=== PATIENT | male | born 1960 | race Caucasian/White ===

== ENCOUNTER 2020-10-16 06:20 | Outpatient (REF) | payer MEDICARE, MEDICAID, SELFPAY ==
[2020-10-16 08:05] LABS: Alanine Aminotransferase 20 U/L (0-40); Albumin Level 4.2 g/dL (3.5-5.0); Alkaline Phosphatase 82 U/L (39-117); Anion Gap 16 (12-20); Aspartate Amino Transferase 18 U/L (5-37); Bilirubin Total 1.1 mg/dL (0.0-1.0); Blood Urea Nitrogen 13 mg/dL (9-16); Calcium 9.7 mg/dL (8.4-10.2); Carbon Dioxide 25 mmol/L (22-29); Chloride 104 mmol/L (96-108); Cholesterol 114 mg/dL; Estimated Glomerular Filt Rate > 60; Glucose Fasting 132 mg/dL (60-99); HDL Cholesterol 33 mg/dL; LDL Cholesterol Calculated 55 mg/dl; Potassium 4.5 mmol/l (3.3-5.1); Sodium 140 mmol/L (135-145); Triglycerides 132 mg/dL
[2020-10-16 08:07] LABS: Creatinine Urine 167.25 mg/dL; Microalbum/Creatinine Ratio Ur 29.8 ug/mg cr
[2020-10-16 08:08] LABS: Vitamin D 25-OH Total 38.1 ng/mL (>30)
== END 2020-10-16 06:21 | disposition home or self-care (01) ==
LOC: HO.LAB 06:20
PROVIDERS: PCP Internal Medicine; Visit Provider Internal Medicine
DX: E11.9 Type 2 diabetes mellitus without complications (principal); E55.9 Vitamin D deficiency, unspecified
CPT/HCPCS: 80053; 80061; 82043; 82306

== ENCOUNTER 2021-03-30 08:55 | Outpatient (REF) | payer MEDICARE, MEDICAID, SELFPAY ==
[2021-03-30 10:56] LABS: Alanine Aminotransferase 22 U/L (0-40); Albumin Level 4.6 g/dL (3.5-5.0); Alkaline Phosphatase 83 U/L (39-117); Aspartate Amino Transferase 19 U/L (5-37); Bilirubin Total 0.6 mg/dL (0.0-1.0); Blood Urea Nitrogen 15 mg/dL (9-16); Cholesterol 125 mg/dL; Estimated Glomerular Filt Rate > 60; Glucose Fasting 120 mg/dL (60-99); HDL Cholesterol 35 mg/dL; LDL Cholesterol Calculated 50 mg/dl; Total Protein 7.3 g/dL (6.5-8.0); Triglycerides 203 mg/dL
[2021-03-30 11:04] LABS: Creatinine Urine 112.28 mg/dL; Microalbum/Creatinine Ratio Ur 33.8 ug/mg cr
[2021-03-30 11:13] LABS: Anion Gap 13 (12-20); Calcium 10.1 mg/dL (8.4-10.2); Carbon Dioxide 29 mmol/L (22-29); Chloride 105 mmol/L (96-108); Potassium 5.1 mmol/L (3.3-5.1); Sodium 142 mmol/L (135-145)
[2021-04-06 14:02] LABS: Vitamin D 25-OH, D2 <4 ng/mL; Vitamin D 25-OH, D3 42 ng/mL; Vitamin D 25-OH, Total 42 ng/mL (30-100)
== END 2021-03-30 08:56 | disposition home or self-care (01) ==
LOC: HO.LAB 08:55
PROVIDERS: PCP Internal Medicine; Visit Provider Internal Medicine
DX: E11.49 Type 2 diabetes mellitus with other diabetic neurological complication (principal); E78.5 Hyperlipidemia, unspecified; E55.9 Vitamin D deficiency, unspecified
CPT/HCPCS: 36415; 80053; 80061; 82043; 82306

== ENCOUNTER 2021-06-17 10:29 | Emergency (ER) | payer MEDICARE, MEDICAID, SELFPAY ==
--- NOTE | ~2021-06-17 | XR_ITS ---
Examination: XR foot LT 2V, XR tibia fibula RT 2V, XR ankle LT min 3V Indication: fall. Comparison: 09/25/2018 knee films Technique: 2 views of the right tibia and fibula, 2 views of the ankle with 3 views of the right foot including a lateral view of the foot and ankle Findings: Patient is status post unilateral medial joint replacement. Hardware appears be intact. No evidence for periprosthetic fracture or loosening. No acute fracture or dislocation to the remaining tibia or fibula. Soft tissue unremarkable. No significant ankle joint effusion. Bones are normal anatomic alignment with no acute fracture or dislocation. Minimal degenerative changes at the first MTP joint. Calcaneal heel spur at the attachment point of the plantar aponeurosis. I do not appreciate any acute fracture or dislocation. XR/XR ankle LT min 3V Impression: Chronic appearing and degenerative changes as described above. I do not appreciate any acute fracture or dislocation.
--- NOTE | ~2021-06-17 | XR_ITS ---
Examination: XR foot LT 2V, XR tibia fibula RT 2V, XR ankle LT min 3V Indication: fall. Comparison: 09/25/2018 knee films Technique: 2 views of the right tibia and fibula, 2 views of the ankle with 3 views of the right foot including a lateral view of the foot and ankle Findings: Patient is status post unilateral medial joint replacement. Hardware appears be intact. No evidence for periprosthetic fracture or loosening. No acute fracture or dislocation to the remaining tibia or fibula. Soft tissue unremarkable. No significant ankle joint effusion. Bones are normal anatomic alignment with no acute fracture or dislocation. Minimal degenerative changes at the first MTP joint. Calcaneal heel spur at the attachment point of the plantar aponeurosis. I do not appreciate any acute fracture or dislocation. XR/XR foot LT 2V Impression: Chronic appearing and degenerative changes as described above. I do not appreciate any acute fracture or dislocation.
--- NOTE | ~2021-06-17 | XR_ITS ---
Examination: XR foot LT 2V, XR tibia fibula RT 2V, XR ankle LT min 3V Indication: fall. Comparison: 09/25/2018 knee films Technique: 2 views of the right tibia and fibula, 2 views of the ankle with 3 views of the right foot including a lateral view of the foot and ankle Findings: Patient is status post unilateral medial joint replacement. Hardware appears be intact. No evidence for periprosthetic fracture or loosening. No acute fracture or dislocation to the remaining tibia or fibula. Soft tissue unremarkable. No significant ankle joint effusion. Bones are normal anatomic alignment with no acute fracture or dislocation. Minimal degenerative changes at the first MTP joint. Calcaneal heel spur at the attachment point of the plantar aponeurosis. I do not appreciate any acute fracture or dislocation. XR/XR tibia fibula RT 2V Impression: Chronic appearing and degenerative changes as described above. I do not appreciate any acute fracture or dislocation.
[2021-06-17 11:18] VITALS: BP 133/85; PULSE 80; RESP 16; O2SAT 100; BMI 41.8
[2021-06-17] MEDS: Diphth,Pertus(ACell),Tet Adult 0.5 ML SYRINGE IM (12:17)
--- NOTE | 2021-06-17 12:29 | ED_ITS ---
HPI - Fall General Chief Complaint: Fall Stated Complaint: fall Time Seen by Provider: 06/17/21 11:43 Source: patient Mode of arrival: ambulatory Limitations: no limitations History of Present Illness HPI Narrative: Patient presents to ED bilateral leg abrasions. Patient presents to the ED for mostly left ankle pain. Patient states he was walking with sandals and doing gardening work on wet grass any slipped and fell onto his legs. Patient denies hitting head or loss of consciousness. Patient denies any chest pain, shortness of breath, vomiting, or dizziness. MD complaint: fall Fall from: standing Related Data Previous Rx's Medication Instructions Recorded simvastatin 40 mg tablet 40 mg PO BEDTIME 90 Days #90 tab 10/24/20 cholecalciferol (vitamin D3) 25 25 mcg PO DAILY 90 Days #90 tab 10/25/20 mcg (1,000 unit) tablet lancets 28 gauge (FreeStyle 28 gauge TOPICAL DAILY #100 cap 11/28/20 Lancets) metformin 500 mg tablet 1,000 mg PO BID #360 tab 02/21/21 blood sugar diagnostic (FreeStyle 1 strip MISCELLANEOUS DAILY #50 05/25/21 Lite Strips) strip losartan 100 mg tablet 100 mg PO DAILY #90 tab 05/26/21 omeprazole 20 mg capsule,delayed 20 mg PO DAILY 90 Days #90 cap 05/31/21 release gabapentin 300 mg capsule 300 mg PO DAILY 90 Days #90 cap 06/06/21 cephalexin 500 mg capsule 500 mg PO QID #28 cap 06/17/21 naproxen 500 mg tablet 500 mg PO BID PRN #20 tab 06/17/21 Allergies Allergy/AdvReac Type Severity Reaction Status Date / Time shellfish derived Allergy Mild SWELLING;DIFF Verified 05/31/21 08:57 [SHELLFISH DERIVED] BREATHING shrimp [SHRIMP] Allergy Mild swelling,difficulty Verified 05/31/21 08:57 breathing Review of Systems Review of Systems: Yes all other systems are reviewed and are negative Constitutional: Constitutional: Reports as per HPI and Reports no additional constitutional complaints Eyes: Eyes: Reports as per HPI and Reports no additional eye complaints ENT: Reports system reviewed and no additional complaints, except as documented Cardiovascular: Cardiovascular: Reports as per HPI and Reports no additional cardiovascular complaints Respiratory: Respiratory: Reports as per HPI and Reports no additional respiratory complaints Gastrointestinal: Gastrointestinal: Reports as per HPI and Reports no addition al gastrointestinal complaints Genitourinary: Genitourinary: Reports no additional male genitourinary complaints and Reports as per HPI Musculoskeletal: Musculoskeletal: Reports no additional musculoskeletal complaints, Reports as per HPI and Reports arthralgias (Left ankle pain) Neurologic: Reports system reviewed and no additional complaints, except as documented and Reports as per HPI [facility] [place] Past Medical History Medical History Diabetes mellitus Essential hypertension Hypovitaminosis D Morbid obesity Neuropathy Pure hypercholesterolemia Surgical History History of arthroscopy of right knee Nephrolithiasis Family History Family History Father Diabetes Hypertension Mother Diabetes Hypertension Sister Lung cancer Family/Other Diabetes Hypertension Hypercholesterolemia Social History Social History Housing: Apartment Alcohol intake: never Patient Tobacco Use Status: Former Tobacco user Advance Directives: No Advance Directives Information Provided: No service: No Current occupational status: disabled Physical Exam Vital Signs: Vital Signs: Last Vital Signs Pulse 80 06/17/21 11:18 Resp 16 06/17/21 11:18 BP 133/85 06/17/21 11:18 Pulse Ox 100 06/17/21 11:18 Body Mass Index 41.8 Const: General: cooperative, healthy appearing, comfortable, no acute distress, well developed, alert, awake and Physically active Orientation/consciousness: patient oriented x3 HENMT: Head: Yes normal to inspection, Yes No palpable skull fracture present, Yes normocephalic, Yes atraumatic, No abrasion, No Acrocyanosis present, No Goyal's sign, No contusion, No cranial bruits, No hematoma, No laceration, No occipital foramen tenderness, No palpable skull fracture, No raccoon eyes, No scalp lesion, No scalp tenderness, No Temporal artery tenderness present and No periorbital ecchymosis Ears: hearing grossly normal bilaterally, external ears normal, TM's normal bilaterally, mastoids normal and no periauricular adenopathy Face and sinus: Yes normal facial exam and Yes sinuses nontender Eyes: General: appearance normal, both eyes and all related structures Neck: Neck: Yes normal visual inspection, Yes full ROM, Yes no lymphadenopathy, Yes no meningeal signs, Yes trachea midline, Yes supple and No tender Chest: Chest palpation & inspection: normal inspection of the chest and normal palpation of entire chest wall Resp: Effort & Inspection: normal respiratory effort and able to speak in complete sentences Auscultation: clear to auscultation bilaterally Cardio: Jugular venous distension: no JVD Heart sounds: S1 normal heart sound present and S2 normal heart sound present GI: Inspection: Yes normal to inspection and No abdominal wall ecchymosis Palpation (GI): Soft to palpation, not firm, nontender, no guarding and not rigid : General: No CVA tenderness and Yes no CVA tenderness Back/Spine/Pelvis: Back: no CVA tenderness, No CVA tenderness and No back tenderness Skin: General skin exam: no rashes or lesions noted and elasticity normal Neuro: General: patient oriented x3, gait normal, no meningeal signs and CN's II-XI intact bilaterally Cranial nerves: Yes CN's II-XII intact bilaterally Extrem: General: Yes normal to inspection and Yes full ROM Upper/lower leg/hip images: 1. Positive for abrasion. Negative any deformity. Negative for redness, erythema, pus discharge. Motor/vascular/neuro exam of lower extremity intact. 2. Positive for abrasion. Negative for any deformity, ecchymosis, redness, erythema, pus discharge, foul odor. Mild tenderness. Motor/neuro/vascular exam of lower extremity intact. Course Course Course Narrative: Patient will be sent for lower extremity imaging. Reevaluation(s) Reevaluation #1: Images came back negative for fracture. Patient will be discharged with pain meds. Time: 13:13 MDM - Fall MDM Narrative Medical decision making narrative: Abrasions Discharge Plan Discharge Clinical Impression: Abrasion Patient Disposition: Home, Self-Care Instructions: Ankle Sprain (ED), Abrasion (ED) Additional Instructions: The x-rays came back negative for any fractures. Return to ED for any redness, pus discharge, foul odor, fever, or chills. He will be discharged with antibiotics to prevent infection due to history of diabetes. Please return to the ED for any other concerning symptoms. Please follow-up with PCP Prescriptions: New cephalexin 500 mg capsule 500 mg PO QID Qty: 28 RF: 0 naproxen 500 mg tablet 500 mg PO BID PRN (Reason: pain) Qty: 20 RF: 0 No Action simvastatin 40 mg tablet 40 mg PO BEDTIME 90 Days Qty: 90 RF: 3 cholecalciferol (vitamin D3) 25 mcg (1,000 unit) tablet 25 mcg PO DAILY 90 Days Qty: 90 RF: 3 lancets [FreeStyle Lancets] 28 gauge misc 28 gauge topical DAILY Qty: 100 RF: 1 metformin 500 mg tablet 1,000 mg PO BID Qty: 360 RF: 3 blood sugar diagnostic [FreeStyle Lite Strips] Strip 1 strip miscellaneous DAILY Qty: 50 RF: 6 losartan 100 mg tablet 100 mg PO DAILY Qty: 90 RF: 3 gabapentin 300 mg capsule 300 mg PO DAILY 90 Days Qty: 90 RF: 3 omeprazole 20 mg capsule,delayed release(DR/EC) 20 mg PO DAILY 90 Days Qty: 90 RF: 2 Interventions: ED Discharge Assessment Last Done: 06/17/21 13:30 Discharge Date/Time: 06/17/21 13:50 Print Language: [place]
== END 2021-06-17 13:50 | disposition home or self-care (01) ==
PROVIDERS: Emergency Provider Emergency Medicine Emergency Medical Services; PCP Internal Medicine
DX: S90.512A Abrasion, left ankle, initial encounter (principal); W01.0XXA Fall on same level from slipping, tripping and stumbling without subsequent striking against object, initial encounter; Y93.H2 Activity, gardening and landscaping; Y92.017 Garden or yard in single-family (private) house as the place of occurrence of the external cause; Y99.9 Unspecified external cause status
CPT/HCPCS: 73590; 73610; 73620; 90471; 90715; 99283; 99284

== ENCOUNTER 2021-10-08 08:32 | Outpatient (REF) | payer MEDICARE, MEDICAID, SELFPAY ==
[2021-10-08 09:32] LABS: Creatinine Urine 81.21 mg/dL; Microalbum/Creatinine Ratio Ur 82.5 ug/mg cr
[2021-10-08 09:32] LABS: Alanine Aminotransferase 23 U/L (0-40); Albumin Level 4.4 g/dL (3.5-5.0); Alkaline Phosphatase 86 U/L (39-117); Anion Gap 14 (12-20); Aspartate Amino Transferase 17 U/L (5-37); Bilirubin Total 0.8 mg/dL (0.0-1.0); Blood Urea Nitrogen 15 mg/dL (9-16); Calcium 10.3 mg/dL (8.4-10.2); Carbon Dioxide 27 mmol/L (22-29); Chloride 104 mmol/L (96-108); Cholesterol 130 mg/dL; Estimated Glomerular Filt Rate > 60; Glucose Fasting 111 mg/dL (60-99); HDL Cholesterol 33 mg/dL; LDL Cholesterol Calculated 61 mg/dl; Potassium 4.8 mmol/L (3.3-5.1); Sodium 140 mmol/L (135-145); Total Protein 7.2 g/dL (6.5-8.0); Triglycerides 180 mg/dL
[2021-10-08 09:36] LABS: Uric Acid 5.1 mg/dL (3.4-7.0)
[2021-10-11 15:06] LABS: Vitamin D 25-OH, D2 <4 ng/mL; Vitamin D 25-OH, D3 34 ng/mL; Vitamin D 25-OH, Total 34 ng/mL (30-100)
== END 2021-10-08 08:33 | disposition home or self-care (01) ==
LOC: HO.LAB 08:32
PROVIDERS: PCP Internal Medicine; Visit Provider Internal Medicine
DX: E55.9 Vitamin D deficiency, unspecified (principal); E11.49 Type 2 diabetes mellitus with other diabetic neurological complication; M10.9 Gout, unspecified; E78.5 Hyperlipidemia, unspecified
CPT/HCPCS: 36415; 80053; 80061; 82043; 82306; 84550

== ENCOUNTER 2022-07-22 22:15 | Emergency (ER) | payer MEDICARE, MEDICAID, SELFPAY ==
--- NOTE | 2022-07-22 23:37 | PC.NURSE ---
RN called patient to triage for initial triage and he was noted to ambulate over to triage with even and steady gait without distress noted. PT reports while waiting his right ear popped and he felt better. Pt declined to be seen as he reports his ear feels better and there not longer is a need for eval.
== END 2022-07-22 23:38 | disposition left against medical advice (07) ==
PROVIDERS: Emergency Provider Emergency Medicine; PCP Internal Medicine
DX: H92.01 Otalgia, right ear (principal)

== ENCOUNTER 2022-07-23 00:50 | Emergency (ER) | payer MEDICARE, MEDICAID, SELFPAY ==
[2022-07-23 01:16] VITALS: BP 147/98; PULSE 80; RESP 18; TEMP 36.7; O2SAT 97; BMI 44.6
--- NOTE | 2022-07-23 03:29 | ED.EAR ---
HPI - Ear Problem General Chief complaint: Ear Problems Stated complaint: ear pain, LWT a few hours ago Time Seen by Provider: 07/23/22 03:29 Source: patient Mode of arrival: ambulatory Limitations: no limitations History of Present Illness HPI Narrative: right ear with intermittent ear pressure with occasional popping. Complaint: ear pain Location: right ear Duration: intermittent Severity: moderate Relieving factors: nothing Exacerbating factors: nothing Discharge from ear: no Associated symptoms ear: decreased hearing Treatment prior to arrival: none Related Data Previous Rx's Medication Instructions Recorded cholecalciferol (vitamin D3) 25 25 mcg PO DAILY 90 days #90 tabs 10/25/20 mcg (1,000 unit) tablet omeprazole 20 mg capsule,delayed 20 mg PO DAILY 90 days #90 caps 05/31/21 release naproxen 500 mg tablet 500 mg PO BID PRN pain #20 tabs 06/17/21 blood sugar diagnostic (FreeStyle 1 strip miscellaneous DAILY #50 07/18/21 Lite Strips) strips lancets 28 gauge (FreeStyle 28 gauge topical DAILY #100 caps 09/24/21 Lancets) simvastatin 40 mg tablet 40 mg PO BEDTIME 90 days #90 tabs 11/09/21 metformin 500 mg tablet 1,000 mg PO BID #360 tabs 03/06/22 gabapentin 300 mg capsule 300 mg PO DAILY 90 days #90 caps 06/28/22 losartan 100 mg tablet 100 mg PO DAILY #90 tabs 06/28/22 Allergies Allergy/AdvReac Type Severity Reaction Status Date / Time shellfish derived Allergy Mild SWELLING;DIFF Verified 07/23/22 01:16 [SHELLFISH DERIVED] BREATHING shrimp [SHRIMP] Allergy Mild swelling,difficulty Verified 07/23/22 01:16 breathing Review of Systems Constitutional: Constitutional: Reports no additional constitutional complaints Eyes: Eyes: Reports no additional eye complaints ENT: Denies dizziness Cardiovascular: Cardiovascular: Reports no additional cardiovascular complaints Respiratory: Respiratory: Reports as per HPI Gastrointestinal: Gastrointestinal: Reports no additional gastrointestinal complaints Musculoskeletal: Musculoskeletal: Reports no additional musculoskeletal complaints Integumentary/Breasts: Skin/Breast: Denies rash Neurologic: Reports system reviewed and no additional complaints, except as documented, Denies dizziness and Denies Sensory deficit (Neuro) Psychiatric: Psychiatric: Denies anxiety PMFSH Past Medical History Medical History Diabetes mellitus Essential hypertension Hypovitaminosis D Morbid obesity Neuropathy Pure hypercholesterolemia Surgical History History of arthroscopy of right knee Nephrolithiasis Family History Family History Father Diabetes Hypertension Mother Diabetes Hypertension Sister Lung cancer Family/Other Diabetes Hypertension Hypercholesterolemia Social History Social History Housing: Apartment Alcohol intake: never Patient Tobacco Use Status: Former Tobacco user e-Cigarette/Vaping Use: Never Used Second Hand Smoke Exposure: No Use of substances other than those prescribed or required for medical reasons: No Advance Directives: No service: No Current occupational status: disabled Physical Exam Vital Signs: Vital Signs: Last Vital Signs Temp 98.1 F 07/23/22 01:16 Pulse 80 07/23/22 01:16 Resp 18 07/23/22 01:16 BP 147/98 H 07/23/22 01:16 Pulse Ox 97 07/23/22 01:16 O2 Del Method 07/23/22 01:16 BMI result Body Mass Index 44.6 Neuro: Sensory Exam: No Sensory deficit (Neuro) Procedures Procedure Narrative Procedure Narrative: patient with Currette of cerumen impaction but then used elephant ear to irrigate and large impaction removed Discharge Plan Discharge Clinical Impression: Cerumen impaction Patient Disposition: Home, Self-Care Prescriptions: No Action cholecalciferol (vitamin D3) 25 mcg (1,000 unit) tablet 25 mcg PO DAILY 90 Days Qty: 90 3RF FreeStyle Lite Strips Strip 1 strip miscellaneous DAILY Qty: 50 6RF lancets [FreeStyle Lancets] 28 gauge misc 28 gauge topical DAILY Qty: 100 1RF simvastatin 40 mg tablet 40 mg PO BEDTIME 90 Days Qty: 90 3RF metformin 500 mg tablet 1,000 mg PO BID Qty: 360 3RF losartan 100 mg tablet 100 mg PO DAILY Qty: 90 3RF gabapentin 300 mg capsule 300 mg PO DAILY 90 Days Qty: 90 3RF naproxen 500 mg tablet 500 mg PO BID PRN (Reason: pain) Qty: 20 0RF omeprazole 20 mg capsule,delayed release(DR/EC) 20 mg PO DAILY 90 Days Qty: 90 2RF Referrals: Michelle Lind MD [Primary Care Provider] - 2 weeks
[2022-07-23 05:00] VITALS: BP 130/74; PULSE 86; RESP 16; TEMP 36.8; O2SAT 97
== END 2022-07-23 05:02 | disposition home or self-care (01) ==
PROVIDERS: Emergency Provider Emergency Medicine; PCP Internal Medicine
DX: H61.21 Impacted cerumen, right ear (principal); H92.01 Otalgia, right ear; E11.9 Type 2 diabetes mellitus without complications; I10 Essential (primary) hypertension; E78.00 Pure hypercholesterolemia, unspecified; E66.01 Morbid (severe) obesity due to excess calories; Z68.41 Body mass index [BMI] 40.0-44.9, adult; Z87.891 Personal history of nicotine dependence; Z79.02 Long term (current) use of antithrombotics/antiplatelets; Z79.84 Long term (current) use of oral hypoglycemic drugs; Z79.899 Other long term (current) drug therapy
CPT/HCPCS: 69210; 99283; 99284

== ENCOUNTER 2022-09-05 09:05 | Outpatient (REF) | payer MEDICARE, MEDICAID, SELFPAY | END 2022-09-05 09:06 | disposition home or self-care (01) | LOC: HO.LAB 09:05 | PROVIDERS: Visit Provider Internal Medicine | DX: Z13.89 Encounter for screening for other disorder (principal) ==

== ENCOUNTER 2022-09-09 07:06 | Outpatient (REF) | payer MEDICARE, MEDICAID, SELFPAY ==
[2022-09-09 08:06] LABS: Alanine Aminotransferase 47 U/L (0-40); Albumin Level 4.3 g/dL (3.5-5.0); Alkaline Phosphatase 101 U/L (39-117); Anion Gap 18 (12-20); Aspartate Amino Transferase 44 U/L (5-37); Bilirubin Total 0.5 mg/dL (0.0-1.0); Blood Urea Nitrogen 13 mg/dL (9-16); Carbon Dioxide 24 mmol/L (22-29); Chloride 102 mmol/L (96-108); Cholesterol 107 mg/dL; Estimated Glomerular Filt Rate 57; Glucose Fasting 242 mg/dL (60-99); HDL Cholesterol 27 mg/dL; LDL Cholesterol Calculated 32 mg/dl; Magnesium 1.8 mg/dL (1.6-2.6); Potassium 4.5 mmol/L (3.3-5.1); Sodium 139 mmol/L (135-145); Total Protein 7.2 g/dL (6.5-8.0); Triglycerides 241 mg/dL
[2022-09-09 08:52] LABS: Creatinine Urine 193.15 mg/dL; Microalbum/Creatinine Ratio Ur 127.8 ug/mg cr
== END 2022-09-09 07:07 | disposition home or self-care (01) ==
LOC: HO.LAB 07:06
PROVIDERS: PCP Internal Medicine; Visit Provider Internal Medicine
DX: E11.9 Type 2 diabetes mellitus without complications (principal); E55.9 Vitamin D deficiency, unspecified; R25.2 Cramp and spasm; E78.5 Hyperlipidemia, unspecified; I10 Essential (primary) hypertension
CPT/HCPCS: 36415; 80053; 80061; 82043; 82306; 83735

== ENCOUNTER 2022-10-26 22:24 | Inpatient (IN) | payer MEDICARE, MEDICAID, SELFPAY ==
--- NOTE | ~2022-10-26 | CT_ITS ---
EXAMINATION: CT ABDOMEN AND PELVIS WITHOUT CONTRAST CLINICAL INFORMATION: Elevated creatinine. Evaluate for renal obstruction. COMPARISON: None TECHNIQUE: Multidetector volumetric imaging was performed from the superior aspect of the liver through the pubic symphysis. Sagittal and coronal reformatted images were obtained on the technologist's workstation. This CT examination was performed using dose optimization techniques as appropriate, variously including the following: *Automated exposure control *Adjustment of mA and/or kV according to patient size (this includes techniques or standardized protocols for targeted exams where dose is matched to indication/reason for exam; i.e. extremities or head) *Use of iterative reconstruction technique DLP: 907 mGy-cm FINDINGS: LUNG BASES: There is a 5 mm pulmonary nodule in the medial left lower lobe (3:49). No focal consolidation or pleural effusion. LIVER, GALLBLADDER, AND BILIARY TREE: The liver is enlarged measuring 19.8 cm craniocaudally and demonstrates decreased attenuation of the parenchyma suggesting hepatic steatosis. There are couple of calcifications in the posterior aspect of the right hepatic lobe (2:14 and 2:15). Otherwise, no discrete focal abnormalities noted in this limited noncontrast examination. Normal appearance of the gallbladder. No biliary ductal dilatation. PANCREAS: No peripancreatic free fluid or fat stranding. Diffuse fatty infiltration. No ductal dilatation. SPLEEN: Limited noncontrast examination, unremarkable. ADRENAL GLANDS: No adrenal lesion. KIDNEYS AND URETERS: No nephrolithiasis or hydronephrosis. BLADDER: Partially under distended limiting its evaluation. No perivesical fat stranding. GASTROINTESTINAL TRACT: The stomach and the small bowel are nondilated. Normal appendix. No evidence of bowel obstruction. No pericolonic inflammatory changes. ABDOMINAL WALL: Small fat-containing bilateral inguinal hernias. LYMPH NODES: Mild haziness of the upper mesentery fat with associated prominent mesenteric lymph nodes, nonspecific. There are prominent periportal lymph nodes, nonspecific in the setting of hepatic steatosis. VASCULAR: Limited noncontrast examination. Abdominal aorta is of normal diameter. PELVIC VISCERA: Coarse prostatic calcifications. OSSEOUS STRUCTURES: No acute or aggressive appearing osseous abnormalities. CT/CT abdomen pelvis wo IV con IMPRESSION: 1. No nephrolithiasis or hydronephrosis. 2. Hepatomegaly and hepatic steatosis. 3. Mild haziness of the upper mesentery with associated prominent mesenteric lymph nodes, nonspecific but could be seen with mesenteric adenitis. 4. Incidentally noted 5 mm pulmonary nodule in the left lower lobe. Assuming patient has no history of malignancy, recommend follow-up per Fleischner Society recommendations. According to the UPDATED 2017 Fleischner Society recommendations, the advised followup imaging for solid nodules < 6 mm is: LOW RISK PATIENT: No routine follow up. HIGH RISK PATIENT: Optional CT at 12 months.
--- NOTE | ~2022-10-26 | US_ITS ---
EXAMINATION: US RETROPERITONEAL LIMITED (RENAL ONLY) CLINICAL INFORMATION: Acute kidney injury. Rule out obstruction.. COMPARISON: CT abdomen pelvis earlier this morning TECHNIQUE: Grayscale and color Doppler imaging was obtained of both kidneys. FINDINGS: RIGHT KIDNEY: 11.3 x 5.2 x 5.8 cm (SAG x AP x TRV). The kidney is normal in size, contour, and echogenicity. Renal cortical thickness is normal. No calculi or focal parenchymal lesions. No hydronephrosis. LEFT KIDNEY: 11.4 x 5.6 x 4.9 cm (SAG x AP x TRV). The kidney is normal in size, contour, and echogenicity. Renal cortical thickness is normal. No calculi or focal parenchymal lesions. No hydronephrosis. US/US renal BI IMPRESSION: No renal calculi or hydronephrosis of either kidney.
[2022-10-27] VITALS (7 sets, daily range): BP systolic 107–134; BP diastolic 55–85; PULSE 88–108; RESP 15–20; TEMP 36.1–37; O2SAT 95–99; BMI 43.9
[2022-10-27 00:21] LABS: Hemoglobin 18.5 g/dl (14.0-18.0); Mean Corpuscular HGB Conc 33.4 g/dl (31.0-36.0); Mean Corpuscular Hemoglobin 28.3 pg (27.0-33.0); Mean Corpuscular Volume 84.8 fL (80.0-98.0); Mean Platelet Volume 9.2 fL (9.4-12.4); Platelet Count 500 X10*3/uL (160-400); Red Blood Count 6.53 X10*6/uL (4.60-5.80); Red Cell Distribution Width 14.1 % (11.0-16.0); White Blood Count 13.7 X10*3/uL (4.8-10.8)
[2022-10-27 00:22] LABS: Hematocrit 55.4 % (42.0-52.0)
[2022-10-27 00:44] LABS: Anion Gap 19 (12-20); Blood Urea Nitrogen 69 mg/dL (9-16); Calcium 9.8 mg/dL (8.4-10.2); Carbon Dioxide 21 mmol/L (22-29); Chloride 102 mmol/L (96-108); Creatinine Clr Calc Pharmacy 18.4; Estimated Glomerular Filt Rate 13; Glucose Random 186 mg/dL (60-115); Potassium 4.7 mmol/L (3.3-5.1); Sodium 137 mmol/L (135-145)
[2022-10-27 00:58] LABS: Influenza A PCR NEGATIVE (Negative); Influenza B PCR NEGATIVE (Negative); Resp Syncy Virus RNA Qual PCR NEGATIVE (Negative); SARS COV2 PCR INHOUSE NEGATIVE (Negative)
--- NOTE | 2022-10-27 01:20 | ED.NAVMDI ---
HPI - Nausea/Vomiting/Diarrhea General Chief complaint: Nausea/Vomiting/Diarrhea Stated complaint: vomiting/diarrhea Time Seen by Provider: 10/27/22 01:07 Source: patient Mode of arrival: ambulatory Limitations: no limitations History of Present Illness HPI Narrative: Patient comes to the emergency room complaining of 4 days of nausea vomiting and diarrhea. Patient states that he is unable to tolerate p.o.. Patient has not taking any [id number] medications to help the symptoms. Patient states that he has muscular abdominal pain from vomiting so much. Patient denies chest pain, shortness of breath, no URI or UTI symptoms Related Data Previous Rx's Medication Instructions Recorded cholecalciferol (vitamin D3) 25 25 mcg PO DAILY 90 days #90 tabs 10/25/ mcg (1,000 unit) tablet blood sugar diagnostic (FreeStyle 1 strip miscellaneous DAILY #50 07/18/21 Lite Strips) strips lancets 28 gauge (FreeStyle 28 gauge topical DAILY #100 caps 09/24/21 Lancets) simvastatin 40 mg tablet 40 mg PO BEDTIME 90 days #90 tabs 11/09/21 metformin 500 mg tablet 1,000 mg PO BID #360 tabs 03/06/22 gabapentin 300 mg capsule 300 mg PO DAILY 90 days #90 caps 06/28/22 losartan 100 mg tablet 100 mg PO DAILY #90 tabs 06/28/22 semaglutide 7 mg tablet 7 mg PO DAILY 90 days #90 tabs 09/05/22 venlafaxine 37.5 mg 37.5 mg PO BEDTIME 90 days #90 caps 09/05/22 capsule,extended release 24 hr Allergies Allergy/AdvReac Type Severity Reaction Status Date / Time shellfish derived Allergy Mild SWELLING;DIFF Verified 09/05/22 09:22 [SHELLFISH DERIVED] BREATHING shrimp [SHRIMP] Allergy Mild swelling,difficulty Verified 09/05/22 09:22 breathing Review of Systems Review of Systems: Constitutional : No Weight loss, No Fever, No Chills, No Night Sweats, No Fatigue, No Malaise ENT/Mouth : No Hearing loss, No Ear Pain, No Nasal Congestion, No Sinus Pain, No Hoarseness, No sore throat, No Rhinorrhea, No Swallowing Difficulty Eyes: No Eye Pain, No Swelling, No Redness, No Foreign Body, No Discharge, No Vision Changes Cardiovascular : No Chest Pain, No SOB, No Dyspnea on Exertion, No Orthopnea, No Edema, No Palpitations Respiratory : No Cough, No Sputum, No Wheezing, No Smoke Exposure, No Dyspnea Gastrointestinal : Complaining of nausea vomiting and diarrhea,, No Constipation, No abdominal Pain, No Hematochezia, No Melena Genitourinary : no irregular bleeding, No Dysuria, No Urinary Frequency, No Hematuria, No Urinary Incontinence, No Urgency, No Flank Pain, No Urinary Flow Changes, No Hesitancy Musculoskeletal : No joint pain, No Myalgias, No Joint Swelling Skin : No Skin Lesions, No rash Neuro : No Weakness, No Numbness, No Paresthesias, No Loss of Consciousness, No Dizziness, No Headache Psych : No Anxiety/Panic, No Depression, No SI/HI/AH/VH, No Social Issues, Heme/Lymph: No Bruising, No Bleeding,No Lymphadenopathy Endocrine : No Polyuria, No Polydipsia, No Temperature Intolerance PMFSH Past Medical History Medical History Diabetes mellitus Essential hypertension Hypovitaminosis D Morbid obesity Neuropathy Pure hypercholesterolemia Surgical History History of arthroscopy of right knee Nephrolithiasis Family History Family History Father Diabetes Hypertension Mother Diabetes Hypertension Sister Lung cancer Family/Other Diabetes Hypertension Hypercholesterolemia Social History Social History Housing: Apartment Alcohol intake: never Patient Tobacco Use Status: Former Tobacco user Smoked in Last 30 Days: No e-Cigarette/Vaping Use: Never Used Second Hand Smoke Exposure: No Use of substances other than those prescribed or required for medical reasons: No Advance Directives: No Advance Directives Information Provided: No service: No Current occupational status: disabled Cognitive needs: No Hearing needs: No Vision needs: Yes Physical Exam Vital Signs: Vital Signs: Last Vital Signs Temp 98.3 F 10/27/22 05:03 Pulse 102 H 10/27/22 05:03 Resp 15 10/27/22 05:03 BP 134/85 10/27/22 05:03 Pulse Ox 97 10/27/22 05:03 O2 Del Method 10/27/22 05:03 BMI result Body Mass Index 43.9 Const: Other: Appearance: Alert. Oriented X3. No acute distress. Eyes: Pupils equal, round and reactive to light. ENT: Dry oral mucosa Neck: Normal inspection. Neck supple. No lymph nodes noted. No crepitus CVS: Normal heart rate and rhythm. Pulses normal. Normal S1 and S2 Respiratory: No respiratory distress. Breath sounds normal. No Wheezing. No rales Abdomen: Soft and nontender. No rigidity. No distention. Skin: Skin warm and dry. Normal skin color. Normal skin turgor. Extremities: No lower extremity edema. No Lacerations. No Rash Neuro: Oriented X 3. No motor deficit. No sensory deficit. Moving all extremities. No slurred speech. CN 2 through 12 grossly intact Psych: calm, cooperative, normal affect Course Course Course Narrative: Patient receiving IV fluids, Zofran and loperamide. We will order CT scan to rule out urologic obstruction, the creatinine is significantly elevated. Most likely secondary to severe dehydration After 2 L fluids, patient's creatinine did not improve. Patient being admitted. I discussed the patient with Dr. Yousuf anders. CT scan does not show any acute abnormality, there was an incidental note in the lung on the left lower lobe. Patient will need follow-up Medications Administered Discontinued Medications Generic Name Dose Route Start Last Admin Trade Name Freq PRN Reason Stop Dose Admin Lactated Ringer's 2,000 mls @ 999 mls/hr 10/27/22 01:15 10/27/22 02:19 Lr IV 10/27/22 03:15 999 mls/hr .Q2H1M JOSUE Administration Loperamide HCl 4 mg 10/27/22 01:17 10/27/22 01:53 Loperamide Hcl 2 Mg Capsule PO 10/27/22 01:18 4 mg ONCE ONE Administration Ondansetron HCl 4 mg 10/27/22 01:17 10/27/22 01:53 Ondansetron Hcl 4 Mg/2 Ml Vial IVPUSH 10/27/22 01:18 4 mg ONCE ONE Administration Medical Decision Making Differential Diagnosis Differential Diagnoses: The differential diagnosis associated with the presentation includes (Gastroenteritis, viral syndrome, dehydration) Admission/Observation Consideration of admission/observation: Escalation of care including admission/observation considered (Patient's creatinine is significantly elevated at 4.53, baseline is 1.28, patient being hydrated and he will likely be admitted) Lab Data MDM Lab Attestation statement: I reviewed the patient's lab results. Result Diagrams: 10/27/22 00:14 10/27/22 05:11 Labs: Lab Results 10/27/22 10/27/22 10/27/22 Range/Units 00:14 00:14 00:14 WBC 13.7 H (4.8-10.8) X10*3/uL RBC 6.53 H (4.60-5.80) X10*6/uL Hgb 18.5 H (14.0-18.0) g/dl Hct 55.4 H (42.0-52.0) % MCV 84.8 (80.0-98.0) fL MCH 28.3 (27.0-33.0) pg MCHC 33.4 (31.0-36.0) g/dl RDW 14.1 (11.0-16.0) % Plt Count 500 H (160-400) X10*3/uL MPV 9.2 L (9.4-12.4) fL Absolute Nucleated RBC 0.000 (0.0-0.012) X10*3/uL Nucleated RBC % (auto) 0.0 (0.0-0.2) /100WBC Sodium 137 (135-145) mmol/L Potassium 4.7 (3.3-5.1) mmol/L Chloride 102 (96-108) mmol/L Carbon Dioxide 21 L (22-29) mmol/L Anion Gap 19 (12-20) BUN 69 H D (9-16) mg/dL Creatinine 4.53 H* (0.5-1.4) mg/dL Estim Creat Clear Calc 18.4 Estimated GFR 13 Random Glucose 186 H (60-115) mg/dL Calcium 9.8 (8.4-10.2) mg/dL Total Bilirubin 0.8 (0.0-1.0) mg/dL Direct Bilirubin 0.3 (0.0-0.5) mg/dL AST 16 (5-37) U/L ALT 18 (0-40) U/L Alkaline Phosphatase 91 (39-117) U/L Total Protein 7.3 (6.5-8.0) g/dL Albumin 4.4 (3.5-5.0) g/dL Lipase 155 H (8-78) U/L Influenza Type A (PCR) NEGATIVE (Negative) Influenza Type B (PCR) NEGATIVE (Negative) RSV RNA Qual (PCR) NEGATIVE (Negative) SARS-CoV-2 RNA (RT-PCR) NEGATIVE (Negative) 10/27/22 Range/Units 05:11 WBC (4.8-10.8) X10*3/uL RBC (4.60-5.80) X10*6/uL Hgb (14.0-18.0) g/dl Hct (42.0-52.0) % MCV (80.0-98.0) fL MCH (27.0-33.0) pg MCHC (31.0-36.0) g/dl RDW (11.0-16.0) % Plt Count (160-400) X10*3/uL MPV (9.4-12.4) fL Absolute Nucleated RBC (0.0-0.012) X10*3/uL Nucleated RBC % (auto) (0.0-0.2) /100WBC Sodium 137 (135-145) mmol/L Potassium 4.8 (3.3-5.1) mmol/L Chloride 104 (96-108) mmol/L Carbon Dioxide 20 L (22-29) mmol/L Anion Gap 18 (12-20) BUN 66 H (9-16) mg/dL Creatinine 4.04 H* (0.5-1.4) mg/dL Estim Creat Clear Calc 20.7 Estimated GFR 15 Random Glucose 181 H (60-115) mg/dL Calcium 8.9 D (8.4-10.2) mg/dL Total Bilirubin (0.0-1.0) mg/dL Direct Bilirubin (0.0-0.5) mg/dL AST (5-37) U/L ALT (0-40) U/L Alkaline Phosphatase (39-117) U/L Total Protein (6.5-8.0) g/dL Albumin (3.5-5.0) g/dL Lipase (8-78) U/L Influenza Type A (PCR) (Negative) Influenza Type B (PCR) (Negative) RSV RNA Qual (PCR) (Negative) SARS-CoV-2 RNA (RT-PCR) (Negative) Radiology Impression Discussion of test interpretation with radiology: I have reviewed the radiologist's reading. Radiologist Impression: FINDINGS: LUNG BASES: There is a 5 mm pulmonary nodule in the medial left lower lobe (3:49). No focal consolidation or pleural effusion.? LIVER, GALLBLADDER, AND BILIARY TREE: The liver is enlarged measuring 19.8 cm craniocaudally and demonstrates decreased attenuation of the parenchyma suggesting hepatic steatosis. There are couple of calcifications in the posterior aspect of the right hepatic lobe (2:14 and 2:15). Otherwise, no discrete focal abnormalities noted in this limited noncontrast examination. Normal appearance of the gallbladder. No biliary ductal dilatation. PANCREAS: No peripancreatic free fluid or fat stranding. Diffuse fatty infiltration. No ductal dilatation.? SPLEEN: Limited noncontrast examination, unremarkable.? ADRENAL GLANDS: No adrenal lesion.? KIDNEYS AND URETERS: No nephrolithiasis or hydronephrosis.? BLADDER: Partially under distended limiting its evaluation. No perivesical fat stranding.? GASTROINTESTINAL TRACT: The stomach and the small bowel are nondilated. Normal appendix. No evidence of bowel obstruction. No pericolonic inflammatory changes.? ABDOMINAL WALL: Small fat-containing bilateral inguinal hernias.? LYMPH NODES: Mild haziness of the upper mesentery fat with associated prominent mesenteric lymph nodes, nonspecific. There are prominent periportal lymph nodes, nonspecific in the setting of hepatic steatosis. VASCULAR: Limited noncontrast examination. Abdominal aorta is of normal diameter. PELVIC VISCERA: Coarse prostatic calcifications.? OSSEOUS STRUCTURES: No acute or aggressive appearing osseous abnormalities.? CT/CT abdomen pelvis wo IV con IMPRESSION: 1.? No nephrolithiasis or hydronephrosis. 2.? Hepatomegaly and hepatic steatosis. 3.? Mild haziness of the upper mesentery with associated prominent mesenteric lymph nodes, nonspecific but could be seen with mesenteric adenitis. 4.? Incidentally noted 5 mm pulmonary nodule in the left lower lobe. Assuming patient has no history of malignancy, recommend follow-up per Fleischner Society recommendations. According to the UPDATED 2017 Fleischner Society recommendations, the advised followup imaging for solid nodules < 6 mm is: LOW RISK PATIENT: No routine follow up. HIGH RISK PATIENT: Optional CT at 12 months. Critical Care Time Critical Care Time Critical Care Time: Yes Total Critical Care Time: 60 Attestation: I have personally provided critical care time. Time includes review of lab data, radiology results, discussion with consultants, and monitoring for potential decompensation. Intervention performed as documented. Discharge Plan Discharge Clinical Impression: Nausea vomiting and diarrhea, Acute dehydration Patient Disposition: Admitted As Inpatient Prescriptions: No Action cholecalciferol (vitamin D3) 25 mcg (1,000 unit) tablet 25 mcg PO DAILY 90 Days Qty: 90 3RF FreeStyle Lite Strips Strip 1 strip miscellaneous DAILY Qty: 50 6RF lancets [FreeStyle Lancets] 28 gauge misc 28 gauge topical DAILY Qty: 100 1RF simvastatin 40 mg tablet 40 mg PO BEDTIME 90 Days Qty: 90 3RF metformin 500 mg tablet 1,000 mg PO BID Qty: 360 3RF losartan 100 mg tablet 100 mg PO DAILY Qty: 90 3RF gabapentin 300 mg capsule 300 mg PO DAILY 90 Days Qty: 90 3RF semaglutide 7 mg tablet 7 mg PO DAILY 90 Days Qty: 90 1RF venlafaxine 37.5 mg capsule,extended release 24hr 37.5 mg PO BEDTIME 90 Days Qty: 90 0RF
[2022-10-27 01:34] LABS: Alanine Aminotransferase 18 U/L (0-40); Albumin Level 4.4 g/dL (3.5-5.0); Alkaline Phosphatase 91 U/L (39-117); Aspartate Amino Transferase 16 U/L (5-37); Bilirubin Direct 0.3 mg/dL (0.0-0.5); Bilirubin Total 0.8 mg/dL (0.0-1.0); Lipase 155 U/L (8-78); Total Protein 7.3 g/dL (6.5-8.0)
[2022-10-27] MEDS: Loperamide HCl 2 MG CAPSULE 4 MG PO (01:53)
[2022-10-27] MEDS: ondansetron HCL 4 MG/2 ML VIAL IVPUSH (01:53)
[2022-10-27] MEDS: Lactated Ringers 2,000 ML 999 ML IV (02:19)
--- NOTE | 2022-10-27 02:35 | PC.NURSE ---
Pt's V/S are stable, pt is a/o x 5, pt reports on 10/22/2022 he started with N/V and burning feeling during urination. Pt has LR running as order by the provider. Pt lungs sounds are clear throughout the lobes, bilaterally. Pt Bowel sounds are hypoactive and abd is rigid. Pt also has a discoloration on his abd, although he reports is normal for him.
[2022-10-27 05:34] LABS: Anion Gap 18 (12-20); Blood Urea Nitrogen 66 mg/dL (9-16); Calcium 8.9 mg/dL (8.4-10.2); Carbon Dioxide 20 mmol/L (22-29); Chloride 104 mmol/L (96-108); Creatinine Clr Calc Pharmacy 20.7; Estimated Glomerular Filt Rate 15; Glucose Random 181 mg/dL (60-115); Potassium 4.8 mmol/L (3.3-5.1); Sodium 137 mmol/L (135-145)
--- NOTE | 2022-10-27 08:12 | PM.IMHP ---
History of Present Illness Date of Service: 10/27/22 <JAMILA Clark - Last Filed: 10/27/22 10:05> Chief Complaint: Nausea, vomiting, and diarrhea x5 days <JAMILA Clark - Last Filed: 10/27/22 10:05> Pt is a 62-year-old male with a past medical history significant for non-insulin dependent diabetes mellitus, HTN, and HLD who presents to the ED today for intractable nausea, vomiting, and diarrhea x5 days. patient reports that he ate dinner on Friday night without incident, but then began to feel nauseous around 22:00 and had 5-6 episodes of vomiting and diarrhea throughout the night. Could not tolerate anything PO, espeically solids, over the next 54 days; anthying po would result in more vomiting and diarrhea. The patient denies any precipitating abdominal pain, but notes that he had abdominal pain associated with vomiting. Says he felt feverish at times, but never took his temperature. Notes increased heartburn and is not urinating as much. Denies chest pain/pressure, palpitations, or SOB. Denies hematemesis, hematochezia, or painful urination. Of note, pt has been experiencing a lot of emotional stress lately as he put has his of 39 years placed in a SNF three months ago for dementia, and this is the first holiday season he's had without her. At the begining of the month was startd on venlafaxine for depression and insomnia, and semaglutide for obesity and DM. In the ED, pt treated with Zofran, loperamide, and IVF. Labs were significant for leukocytosis of 13.7, creatinine 4.53, BUN of 69, lipase 155. CT of abdomen and pelvis was ordered to r/o urologic obstruction, but found no nephrolithiasis, hydronephrosis, bowel obstruction, or acute abnormality. CT did note hepatomegaly and hepatic steatosis, mild haziness of the upper mesentery possibly indicating mesentery adenitis, and a 5 mm pulmonary nodule in the left lower lobe. Received 2 L IV which did not significantly improve his creatinine. Pt will be admitted to the hospital for treatment and further evaluation of MAAME and severe dehydration. <JAMILA Clark - Last Filed: 10/27/22 10:05> Pt is a 62-year-old male with a past medical history significant for non-insulin dependent diabetes mellitus, HTN, and HLD who presents to the ED today for intractable nausea, vomiting, and diarrhea x5 days. patient reports that he ate dinner on Friday night without incident, but then began to feel nauseous around 22:00 and had 5-6 episodes of vomiting and diarrhea throughout the night. Could not tolerate anything PO, espeically solids, over the next 54 days; anthying po would result in more vomiting and diarrhea. The patient denies any precipitating abdominal pain, but notes that he had abdominal pain associated with vomiting. Says he felt feverish at times, but never took his temperature. Notes increased heartburn and is not urinating as much. Denies chest pain/pressure, palpitations, or SOB. Denies hematemesis, hematochezia, or painful urination. Of note, pt has been experiencing a lot of emotional stress lately as he put has his of 39 years placed in a SNF three months ago for dementia, and this is the first holiday season he's had without her. At the begining of the month was startd on venlafaxine for depression and insomnia, and semaglutide for obesity and DM. In the ED, pt treated with Zofran, loperamide, and IVF. Labs were significant for leukocytosis of 13.7, creatinine 4.53, BUN of 69, lipase 155. CT of abdomen and pelvis was ordered to r/o urologic obstruction, but found no nephrolithiasis, hydronephrosis, bowel obstruction, or acute abnormality. CT did note hepatomegaly and hepatic steatosis, mild haziness of the upper mesentery possibly indicating mesentery adenitis, and a 5 mm pulmonary nodule in the left lower lobe. Received 2 L IV which did not significantly improve his creatinine. Pt will be admitted to the hospital for treatment and further evaluation of MAAME and severe dehydration. <Wilbur Winters MD - Last Filed: 10/27/22 10:11> Review of Systems Review of Systems: N/V Diarrhea Abdominal pain associated with vomiting No hematemesis, hematachezia No chest pain/pressure No SOB <JAMILA Clark - Last Filed: 10/27/22 10:05> Yes all other systems are reviewed and are negative <JAMILA Clark - Last Filed: 12/18/22 10:05> [facility] Medical History: Medical History Diabetes mellitus Essential hypertension Hypovitaminosis D Morbid obesity Neuropathy Pure hypercholesterolemia <JAMILA Clark - Last Filed: 10/27/22 10:05> Family History: Family History Father Diabetes Hypertension Mother Diabetes Hypertension Sister Lung cancer Family/Other Diabetes Hypertension Hypercholesterolemia <JAMILA Clark - Last Filed: 10/27/22 10:05> Surgical History: Surgical History History of arthroscopy of right knee Nephrolithiasis <JAMILA Clark - Last Filed: 10/27/22 10:05> Social History: Social History Housing: Apartment Alcohol intake: never Patient Tobacco Use Status: Former Tobacco user Smoked in Last 30 Days: No e-Cigarette/Vaping Use: Never Used Second Hand Smoke Exposure: No Use of substances other than those prescribed or required for medical reasons: No Advance Directives: No Advance Directives Information Provided: No service: No Current occupational status: disabled Cognitive needs: No Hearing needs: No Vision needs: Yes <JAMILA Clark - Last Filed: 10/27/22 10:05> Meds Allergies/Adverse reactions: Allergies Allergy/AdvReac Type Severity Reaction Status Date / Time shellfish derived Allergy Mild SWELLING;DIFF Verified 09/05/22 09:22 [SHELLFISH DERIVED] BREATHING shrimp [SHRIMP] Allergy Mild swelling,difficulty Verified 09/05/22 09:22 breathing <JAMILA Clark - Last Filed: 10/27/22 10:05> Home medications: Home Medications Medication Instructions Recorded Confirmed Last Taken Type gabapentin 300 mg capsule 300 mg PO BEDTIME 10/27/22 10/27/22 10/26/22 History semaglutide 7 mg tablet 7 mg PO BEDTIME 10/27/22 10/27/22 10/26/22 History <JAMILA Clark - Last Filed: 10/27/22 10:05> Physical Exam Vital Signs and Narrative: Vital Signs: Last Vital Signs Temp 98.3 F 10/27/22 05:03 Pulse 102 H 10/27/22 05:03 Resp 15 10/27/22 05:03 BP 134/85 10/27/22 05:03 Pulse Ox 97 10/27/22 05:03 O2 Del Method 10/27/22 05:03 BMI result Body Mass Index 43.9 <JAMILA Clark - Last Filed: 10/27/22 10:05> Constitutional: Alert, in no acute distress. Mental Status: Oriented to person, place and time. Eyes: Pupils are equal, round, and reactive to light. Ear, Nose, and Throat: Oropharynx clear, mucous membranes mildly dry. Ears and nose without deformities. Trachea midline. Respiratory: Clear to auscultation bilaterally. No wheezing, rales, or rhonchi. Cardiovascular: S1, S2 regular. No murmurs, rubs, or gallops. Gastrointestinal: Abdomen soft, non-tender, non-distended. NOrmal bowel sounds. Neurologic: Cranial nerves II-XI are grossly intact. NO focal neurological deficits. Moves all extremities spontaneously. Skin: No rashes of lesions. Musculoskeletal: No cyanosis or clubbing. Extremities: No edema. Psychiatric: Normal mood and affect. <JAMILA Clark - Last Filed: 10/27/22 10:05> Results Labs CBC and Chem 7: : 10/27/22 00:14 10/27/22 05:11 <JAMILA Clark - Last Filed: 10/27/22 10:05> Labs: Laboratory Results - last 24 hr 10/27/22 10/27/22 10/27/22 00:14 00:14 00:14 MCV 84.8 MCH 28.3 MCHC 33.4 RDW 14.1 Plt Count 500 H MPV 9.2 L Absolute Nucleated RBC 0.000 Nucleated RBC % (auto) 0.0 Anion Gap 19 Estim Creat Clear Calc 18.4 Estimated GFR 13 Random Glucose 186 H Calcium 9.8 Total Bilirubin 0.8 Direct Bilirubin 0.3 AST 16 ALT 18 Alkaline Phosphatase 91 Total Protein 7.3 Albumin 4.4 Lipase 155 H Influenza Type A (PCR) NEGATIVE Influenza Type B (PCR) NEGATIVE RSV RNA Qual (PCR) NEGATIVE SARS-CoV-2 RNA (RT-PCR) NEGATIVE 10/27/22 05:11 MCV MCH MCHC RDW Plt Count MPV Absolute Nucleated RBC Nucleated RBC % (auto) Anion Gap 18 Estim Creat Clear Calc 20.7 Estimated GFR 15 Random Glucose 181 H Calcium 8.9 D Total Bilirubin Direct Bilirubin AST ALT Alkaline Phosphatase Total Protein Albumin Lipase Influenza Type A (PCR) Influenza Type B (PCR) RSV RNA Qual (PCR) SARS-CoV-2 RNA (RT-PCR) <JAMILA Clark - Last Filed: 10/27/22 10:05> Imaging Radiologist's Impressions: Impressions Abdomen/Pelvis CT 10/27/22 02:26 IMPRESSION: 1. No nephrolithiasis or hydronephrosis. 2. Hepatomegaly and hepatic steatosis. 3. Mild haziness of the upper mesentery with associated prominent mesenteric lymph nodes, nonspecific but could be seen with mesenteric adenitis. 4. Incidentally noted 5 mm pulmonary nodule in the left lower lobe. Assuming patient has no history of malignancy, recommend follow-up per Fleischner Society recommendations. According to the UPDATED 2017 Fleischner Society recommendations, the advised followup imaging for solid nodules < 6 mm is: LOW RISK PATIENT: No routine follow up. HIGH RISK PATIENT: Optional CT at 12 months. <JAMILA Clark - Last Filed: 10/27/22 10:05> Assessment and Plan (1) Nausea vomiting and diarrhea: Status: Acute <JAMILA Clark - Last Filed: 10/27/22 10:05> (2) Acute dehydration: Status: Acute <JAMILA Clark - Last Filed: 10/27/22 10:05> (3) Morbid obesity: Status: Acute <JAMILA Clark - Last Filed: 10/27/22 10:05> (4) Essential hypertension: Status: Acute <JAMILA Clark - Last Filed: 10/27/22 10:05> (5) Diabetes mellitus: Qualifiers: Diabetes mellitus complication detail: with other neurological complication Diabetes mellitus complication status: with neurologic complications Diabetes mellitus fci insulin use: without manager long term care use Diabetes mellitus type: type 2 Qualified Code(s): E11.49 - Type 2 diabetes mellitus with other diabetic neurological complication <JAMILA Clark Last Filed: 10/27/22 10:05> Status: Acute <JAMILA Clark Last Filed: 10/27/22 10:05> (6) Pure hypercholesterolemia: Status: Acute <JAMILA Clark - Last Filed: 10/27/22 10:05> Pt is a 62-year-old male with a past medical history significant for non-insulin dependent diabetes mellitus, HTN, and HLD who presents to the ED today for intractable nausea, vomiting, and diarrhea x5 days. Pt martha be admitted to the hospital for treatment of MAAME and severe dehydration # MAAME -- likely secondary to dehydration d/t GI losses -- IVF: lactated ringers 150 ml/hr -- nephrology consult # severe dehydration -- treat as above with IVF # nausea, vomiting, diarrhea -- possibly d/t semaglutide, which he started taking at the beginning of the month -- dc semaglutide for now, f/u with PCP about medication alternatives -- ondansetron prn; hold loperimide for GI panel results -- GI panel to r/o infectious sources # leukocytosis -- likely reactionary rather than d/t active infection -- pt does not meet sepsis criteria -- GI panel to r/o infectious source -- follow labs # tachycardia -- likely d/t dehydration # non-insulin dependent DM -- hold home meds -- ssi # morbid obesity -- hold semaglutide -- diabetic diet # 5mm pulmonary nodule -- pt former smoker, quit 25 years ago -- f/u with PCP and consider optional CT in 12 months # HTN -- continue home meds # HLD -- continue home meds DNI/DNR Attending: Dr. Winters DVT Prophylaxis: Lovenox Pt will require a hospitalization of at least two nights for treatment and further workup for severe dehydration and MAAME <JAMILA Clark Last Filed: 10/27/22 10:05> Time Spent With Patient Time: Total time managing care of this patient today ____ minutes. <JAMILA Clark - Last Filed: 10/27/22 10:05> Quality Stroke Does the patient have a stroke diagnosis?: No <JAMILA Clark Last Filed: 10/27/22 10:05> VTE Prior VTE?: No <JAMILA Clark Last Filed: 10/27/22 10:05> VTE Risk Level:: Medical - moderate - high <JAMILA Clark Last Filed: 10/27/22 10:05> VTE Device Contraindication: Treatment Not Indicated <JAMILA Clark - Last Filed: 10/27/22 10:05> VTE Drug Contraindication: N/A - Med Ordered <JAMILA Clark - Last Filed: 10/27/22 10:05>
--- NOTE | 2022-10-27 09:20 | PHA.MEDREC ---
Pharmacy Consult ? Medication Reconciliation Pharmacy has completed the medication reconciliation.
[2022-10-27 10:25] LABS: TSH reflex Free T4 2.75 uIU/mL (0.32-4.0)
[2022-10-27] MEDS: Lactated Ringers 1,000 ML 150 ML IVCONT ×3 (11:10→23:45)
[2022-10-27] MEDS: Enoxaparin Sodium 30 MG/0.3 ML SYRINGE SUBCUT (11:13)
--- NOTE | 2022-10-27 11:16 | PC.NURSE ---
patient a&ox3, ivf started per order, telemetry monitor intact nsr 80s, vss, pt requesting po and states he feels somewhat better, denies pain, will give pt ice chips per his request, will continue to monitor
[2022-10-27 11:36] LABS: Glucose, Whole Blood 176 mg/dL (60-115)
--- NOTE | 2022-10-27 13:27 | PC.NURSE ---
will give pt insulin when lunch arrives
[2022-10-27] MEDS: Insulin Lispro 100 UNIT/ML 3 ML VIAL SUBCUT ×3 (13:44→19:56)
--- NOTE | 2022-10-27 13:45 | PC.NURSE ---
pt medicated per order
--- NOTE | 2022-10-27 15:57 | MHC.CM.PN ---
EMR REVIEWED, PT ADMITTED W/MAAME AND SEVERE DEHYDRATION. CM MET W/PT WHO REPORTS HE IS INDEP W/ALL CARE, DENIES USE OF DME/HOME SERVICES AND REPORTS HE HASN'T BEEN TAKING CARE OF HIMSELF HIS W/DEMENTIA HAS BEEN AT [facility], PT RPEORTS HIS CARE IS IN [facility] AND HE SKYE TRANSPORT HIMSELF HOME. PT VERIFIES PCP IS KHARI DONOHUE, [facility] AND WOULD LIKE TO COMPLETE A HCP PRIOR TO D/C. D/C PLAN: HOME NO SERVICES AND SELF-TRANSPORT
[2022-10-27 16:25] LABS: Glucose, Whole Blood 220 mg/dL (60-115)
[2022-10-27 19:20] LABS: Glucose, Whole Blood 175 mg/dL (60-115)
[2022-10-27] MEDS: Venlafaxine HCl ER 37.5 MG CAP.ER.24H PO (19:55)
[2022-10-27] MEDS: Gabapentin 300 MG CAPSULE PO (19:56)
[2022-10-27] MEDS: Atorvastatin Calcium 20 MG TABLET PO (19:56)
[2022-10-27] MEDS: 0.9 % Sodium Chloride Flush 3 ML SYRINGE IVFLUSH (19:57)
[2022-10-28 04:00] VITALS: BP 143/79; PULSE 85; RESP 17; TEMP 36.4; O2SAT 95
[2022-10-28] MEDS: Lactated Ringers 1,000 ML 150 ML IVCONT ×4 (05:21→22:13)
[2022-10-28 07:11] LABS: Hematocrit 47.2 % (42.0-52.0); Hemoglobin 15.4 g/dl (14.0-18.0); Mean Corpuscular HGB Conc 32.6 g/dl (31.0-36.0); Mean Corpuscular Hemoglobin 28.1 pg (27.0-33.0); Mean Platelet Volume 9.2 fL (9.4-12.4); Platelet Count 395 X10*3/uL (160-400); Red Blood Count 5.49 X10*6/uL (4.60-5.80); Red Cell Distribution Width 13.8 % (11.0-16.0); White Blood Count 9.9 X10*3/uL (4.8-10.8)
[2022-10-28 07:24] VITALS: BP 166/92; PULSE 82; RESP 18; TEMP 36.6; O2SAT 95
[2022-10-28 07:24] LABS: Anion Gap 16 (12-20); Blood Urea Nitrogen 51 mg/dL (9-16); Calcium 8.8 mg/dL (8.4-10.2); Carbon Dioxide 23 mmol/L (22-29); Chloride 105 mmol/L (96-108); Creatinine Clr Calc Pharmacy 36.8; Estimated Glomerular Filt Rate 29; Glucose Random 146 mg/dL (60-115); Potassium 4.3 mmol/L (3.3-5.1); Sodium 140 mmol/L (135-145)
--- NOTE | 2022-10-28 07:29 | HO.PM.IMPN ---
Subjective Subjective Date of Service: 10/28/22 Interval History: F/u on MAAME, dehydration interval history: no more n/v but persistent diarrhea, no pain Review of Systems no n/v +diarreha no fever no pain Physical Exam Vital Signs: Vital Signs: Last Vital Signs Temp 97.9 F 10/28/22 07:24 Pulse 82 10/28/22 07:24 Resp 18 10/28/22 07:24 BP 166/92 H 10/28/22 07:24 Pulse Ox 95 10/28/22 07:24 O2 Del Method 10/28/22 07:24 BMI result Body Mass Index 43.9 Const: Other: General: AO X 3, no acute distress Resp: CTA bilateral CVS: S1,S2,RRR GI: +BS, NT, no distention Skin: No rash Neuro: motor grossly intact Psych: appropriate affect Objective Data Active Medications Acetaminophen (Acetaminophen 325 Mg Tablet) 650 mg PO Q6H PRN PRN Reason: Pain, Mild (Pain Scale 1-3) Atorvastatin Calcium (Atorvastatin Calcium 20 Mg Tablet) 20 mg PO BEDTIME [facility] Last Admin: 10/27/22 19:56 Dose: 20 mg Documented By: KEVIN Dextrose (Dextrose 50 % 25 Gm/50 Ml Syringe) 25 gm IVPUSH Q15M PRN; Protocol PRN Reason: per Hypoglycemia Standing Ord. Enoxaparin Sodium (Enoxaparin Sodium 30 Mg/0.3 Ml Syringe) 30 mg SUBCUT Q24H [facility] Last Admin: 10/27/22 11:13 Dose: 30 mg Documented By: LETY Gabapentin (Gabapentin 300 Mg Capsule) 300 mg PO BEDTIME [facility] Last Admin: 10/27/22 19:56 Dose: 300 mg Documented By: KEVIN Glucose (Glucose Gel 15 Gm Gel..Gram.) 15 gm PO Q15M PRN; Protocol PRN Reason: per Hypoglycemia Standing Ord. Lactated Ringer's (Lr) 1,000 mls @ 150 mls/hr IVCONT .Q6H40M [facility] Last Admin: 10/28/22 05:21 Dose: 150 mls/hr Documented By: KEVIN Insulin Human Lispro (Insulin Lispro 100 Unit/Ml 3 Ml Vial) 0 unit SUBCUT QIDACHS [facility]; Protocol Last Admin: 10/27/22 19:56 Dose: 2 unit Documented By: KEVIN Ondansetron HCl (Ondansetron Hcl 4 Mg/2 Ml Vial) 4 mg IVPUSH Q4H PRN PRN Reason: Nausea and Vomiting Sodium Chloride (0.9 % Sodium Chloride Flush 3 Ml Syringe) 3 ml IVFLUSH QSHIFT [facility] Last Admin: 10/27/22 19:57 Dose: 3 ml Documented By: KEVIN Venlafaxine HCl (Venlafaxine Hcl Er 37.5 Mg Cap.Er.24h) 37.5 mg PO BEDTIME [facility] Last Admin: 10/27/22 19:55 Dose: 37.5 mg Documented By: KEVIN Labs CBC & Chem 7: 10/28/22 06:04 10/28/22 06:04 Labs: Laboratory Results - last 24 hr 10/27/22 10/27/22 10/27/22 05:11 11:33 16:22 MCV MCH MCHC RDW Plt Count MPV Absolute Nucleated RBC Nucleated RBC % (auto) Anion Gap Estim Creat Clear Calc Estimated GFR POC Glucose 176 H 220 H Random Glucose Calcium TSH 2.75 10/27/22 10/28/22 10/28/22 19:17 06:04 06:04 MCV 86.0 MCH 28.1 MCHC 32.6 RDW 13.8 Plt Count 395 MPV 9.2 L Absolute Nucleated RBC 0.000 Nucleated RBC % (auto) 0.0 Anion Gap 16 Estim Creat Clear Calc 36.8 Estimated GFR 29 POC Glucose 175 H Random Glucose 146 H Calcium 8.8 TSH Assessment and Plan (1) MAAME (acute kidney injury): Status: Acute Plan 62-year-old male with a past medical history significant for non-insulin dependent diabetes mellitus, HTN, and HLD who presents to the ED today for intractable nausea, vomiting, and diarrhea x5 days. Pt martha be admitted to the hospital for treatment of MAAME and severe dehydration # MAAME likely secondary to pre renal azotemia from dehydration d/t GI losses--improving Cr 4--> 2 -continue IVF, US negative for stone or hydro -- nephrology consult # severe dehydration due to diarrhea, improving # nausea, vomiting, diarrhea -- possibly d/t semaglutide, which he started taking at the beginning of the month -- discontinued semaglutide for now, f/u with PCP about medication alternatives -- ondansetron prn; -- GI negative, give immodium # leukocytosis--likely reactive and resolved # tachycardia-- likely d/t dehydration, resolved # non-insulin dependent DM -- hold home meds -- ssi # morbid obesity, weight loss education options # 5mm pulmonary nodule -- pt former smoker, quit 25 years ago -- f/u with PCP and consider optional CT in 12 months # HTN--hold Losartan d/t renal failure, add normvasc # HLD--simvastatin DNI/DNR Attending: Dr. Winters DVT Prophylaxis: Lovenox Need for inaptient: for treatment and further workup for severe dehydration and MAAME likely dc tomorrow Time Spent With Patient Time: Total time managing care of this patient today ____ minutes. Quality Stroke Does the patient have a stroke diagnosis?: No VTE Prior VTE?: No VTE Risk Level:: Medical - moderate - high VTE Device Contraindication: Treatment Not Indicated VTE Drug Contraindication: N/A - Med Ordered
[2022-10-28 07:48] LABS: Glucose, Whole Blood 161 mg/dL (60-115)
[2022-10-28] MEDS: Insulin Lispro 100 UNIT/ML 3 ML VIAL SUBCUT ×4 (09:03→22:06)
[2022-10-28] MEDS: Enoxaparin Sodium 30 MG/0.3 ML SYRINGE SUBCUT (09:03)
[2022-10-28] MEDS: 0.9 % Sodium Chloride Flush 3 ML SYRINGE IVFLUSH (09:04)
[2022-10-28 11:16] LABS: Glucose, Whole Blood 202 mg/dL (60-115)
[2022-10-28 11:22] LABS: Adenovirus F 40/41 Not Detected (Not Detect.); Astrovirus Not Detected (Not Detect.); Campylobacter Not Detected (Not Detect.); Cryptosporidium Not Detected (Not Detect.); Cyclospora cayetanensis Not Detected (Not Detect.); E. coli EAEC Not Detected (Not Detect.); E. coli EPEC Not Detected (Not Detect.); E. coli ETEC Not Detected (Not Detect.); E. coli STEC Not Detected (Not Detect.); Entamoeba histolytica Not Detected (Not Detect.); Giardia lamblia Not Detected (Not Detect.); Norovirus GI/GII Not Detected (Not Detect.); Plesiomonas shigelloides Not Detected (Not Detect.); Salmonella Not Detected (Not Detect.); Shigella sp./EIEC Not Detected (Not Detect.); Vibrio Not Detected (Not Detect.); Vibrio Cholerae Not Detected (Not Detect.); Yersinia enterocolitica Not Detected (Not Detect.)
[2022-10-28 11:23] LABS: Rotavirus A Not Detected (Not Detect.); Sapovirus Not Detected (Not Detect.)
[2022-10-28 15:41] VITALS: BP 149/91; PULSE 87; RESP 20; TEMP 36.6; O2SAT 95
--- NOTE | 2022-10-28 15:44 | PM.PNNEP ---
Subjective Subjective Date of Service: 10/28/22 Interval history: vss UO improved Physical Exam Vital Signs: Vital Signs: Last Vital Signs Temp 97.8 F 10/28/22 15:41 Pulse 87 10/28/22 15:41 Resp 20 10/28/22 15:41 BP 149/91 H 10/28/22 15:41 Pulse Ox 95 10/28/22 15:41 O2 Del Method 10/28/22 15:41 BMI result Body Mass Index 43.9 Const: Other: General: AO X 3, no acute distress Resp: CTA bilateral CVS: S1,S2,RRR GI: +BS, NT, no distention Skin: No rash Neuro: motor grossly intact Psych: appropriate affect Objective Data Labs CBC & Chem 7: 10/28/22 06:04 10/28/22 06:04 Labs: Laboratory Results - last 24 hr 10/27/22 10/27/22 10/27/22 16:22 19:17 20:20 WBC RBC Hgb Hct MCV MCH MCHC RDW Plt Count MPV Absolute Nucleated RBC Nucleated RBC % (auto) Sodium Potassium Chloride Carbon Dioxide Anion Gap BUN Creatinine Estim Creat Clear Calc Estimated GFR POC Glucose 220 H 175 H Random Glucose Calcium Stl C. cayetanensis PCR Not Detected Stool Rotavirus A PCR Not Detected Stl Adenov F 40/41 PCR Not Detected Stool Astrovirus (PCR) Not Detected Stool Campylobacter PCR Not Detected Stool Cryptosporidium PCR Not Detected Stl Sh Tox Pr E STEC PCR Not Detected Stool E coli O157 PCR Not applicable Stl Enterotoxigenic E PCR Not Detected Stool EPEC (PCR) Not Detected Stool EAEC (PCR) Not Detected Stl E. histolytica PCR Not Detected Stool Giardia Lamblia PCR Not Detected Stl P. shigelloides PCR Not Detected Stool Salmonella PCR Not Detected Stool Sapovirus (PCR) Not Detected Stl Shigella/EIEC PCR Not Detected St Y.enterocolitica PCR Not Detected Stool Vibrio (PCR) Not Detected Stl Vibrio cholerae PCR Not Detected Stl Norovirus GI/GII PCR Not Detected 10/28/22 10/28/22 10/28/22 06:04 06:04 07:23 WBC 9.9 RBC 5.49 Hgb 15.4 Hct 47.2 MCV 86.0 MCH 28.1 MCHC 32.6 RDW 13.8 Plt Count 395 MPV 9.2 L Absolute Nucleated RBC 0.000 Nucleated RBC % (auto) 0.0 Sodium 140 Potassium 4.3 Chloride 105 Carbon Dioxide 23 Anion Gap 16 BUN 51 H Creatinine 2.27 H Estim Creat Clear Calc 36.8 Estimated GFR 29 POC Glucose 161 H Random Glucose 146 H Calcium 8.8 Stl C. cayetanensis PCR Stool Rotavirus A PCR Stl Adenov F 40/41 PCR Stool Astrovirus (PCR) Stool Campylobacter PCR Stool Cryptosporidium PCR Stl Sh Tox Pr E STEC PCR Stool E coli O157 PCR Stl Enterotoxigenic E PCR Stool EPEC (PCR) Stool EAEC (PCR) Stl E. histolytica PCR Stool Giardia Lamblia PCR Stl P. shigelloides PCR Stool Salmonella PCR Stool Sapovirus (PCR) Stl Shigella/EIEC PCR St Y.enterocolitica PCR Stool Vibrio (PCR) Stl Vibrio cholerae PCR Stl Norovirus GI/GII PCR 10/28/22 11:11 WBC RBC Hgb Hct MCV MCH MCHC RDW Plt Count MPV Absolute Nucleated RBC Nucleated RBC % (auto) Sodium Potassium Chloride Carbon Dioxide Anion Gap BUN Creatinine Estim Creat Clear Calc Estimated GFR POC Glucose 202 H Random Glucose Calcium Stl C. cayetanensis PCR Stool Rotavirus A PCR Stl Adenov F 40/41 PCR Stool Astrovirus (PCR) Stool Campylobacter PCR Stool Cryptosporidium PCR Stl Sh Tox Pr E STEC PCR Stool E coli O157 PCR Stl Enterotoxigenic E PCR Stool EPEC (PCR) Stool EAEC (PCR) Stl E. histolytica PCR Stool Giardia Lamblia PCR Stl P. shigelloides PCR Stool Salmonella PCR Stool Sapovirus (PCR) Stl Shigella/EIEC PCR St Y.enterocolitica PCR Stool Vibrio (PCR) Stl Vibrio cholerae PCR Stl Norovirus GI/GII PCR Procedures Date of Service Date of Service: 10/28/22 Assessment & Plan Assessment and plan (1) MAAME (acute kidney injury): Status: Acute Plan 62-year-old male with a past medical history significant for non-insulin dependent diabetes mellitus, HTN, and HLD who presents to the ED today for intractable nausea, vomiting, and diarrhea x5 days. Pt martha be admitted to the hospital for treatment of MAAME and severe dehydration no evidence of CKD or proteinuria # MAAME likely secondary to pre renal azotemia from volume depletion US negative for stone or hydro -continue IVF, Time Spent With Patient Time: Total time managing care of this patient today ____ minutes. Progress Note: Quality Stroke Does the patient have a stroke diagnosis?: No
[2022-10-28 16:01] LABS: Glucose, Whole Blood 187 mg/dL (60-115)
[2022-10-28 19:08] VITALS: BP 156/86; PULSE 81; RESP 20; TEMP 36.6; O2SAT 95
[2022-10-28 20:03] LABS: Glucose, Whole Blood 173 mg/dL (60-115)
[2022-10-28] MEDS: Atorvastatin Calcium 20 MG TABLET PO (22:06)
[2022-10-28] MEDS: Venlafaxine HCl ER 37.5 MG CAP.ER.24H PO (22:06)
[2022-10-28] MEDS: Gabapentin 300 MG CAPSULE PO (22:06)
[2022-10-29 04:00] VITALS: BP 158/91; PULSE 74; RESP 17; TEMP 36.4; O2SAT 94
[2022-10-29] MEDS: Lactated Ringers 1,000 ML 150 ML IVCONT (04:50)
[2022-10-29 07:30] LABS: Glucose, Whole Blood 144 mg/dL (60-115)
[2022-10-29 08:00] VITALS: BP 137/85; PULSE 78; RESP 18; TEMP 36.8; O2SAT 92
--- NOTE | 2022-10-29 11:08 | P.PNIM_ITS ---
Subjective Subjective Date of Service: 10/29/22 Interval History: F/u on MAAME, dehydration interval history: no more n/v but persistent diarrhea and had some pain after meal yesterdat Review of Systems no n/v +diarreha no fever no pain Physical Exam Vital Signs: Vital Signs: Last Vital Signs Temp 98.2 F 10/29/22 08:00 Pulse 78 10/29/22 08:00 Resp 18 10/29/22 08:00 BP 137/85 10/29/22 08:00 Pulse Ox 92 10/29/22 08:00 O2 Del Method 10/29/22 08:00 BMI result Body Mass Index 43.9 Const: Other: General: AO X 3, no acute distress Resp: CTA bilateral CVS: S1,S2,RRR GI: +BS, NT, no distention Skin: No rash Neuro: motor grossly intact Psych: appropriate affect Objective Data Active Medications Acetaminophen (Acetaminophen 325 Mg Tablet) 650 mg PO Q6H PRN PRN Reason: Pain, Mild (Pain Scale 1-3) Atorvastatin Calcium (Atorvastatin Calcium 20 Mg Tablet) 20 mg PO BEDTIME [facility] Last Admin: 10/28/22 22:06 Dose: 20 mg Documented By: BERNARDO Dextrose (Dextrose 50 % 25 Gm/50 Ml Syringe) 25 gm IVPUSH Q15M PRN; Protocol PRN Reason: per Hypoglycemia Standing Ord. Enoxaparin Sodium (Enoxaparin Sodium 30 Mg/0.3 Ml Syringe) 30 mg SUBCUT Q24H [facility] Last Admin: 10/28/22 09:03 Dose: 30 mg Documented By: JERILYN Gabapentin (Gabapentin 300 Mg Capsule) 300 mg PO BEDTIME [facility] Last Admin: 10/28/22 22:06 Dose: 300 mg Documented By: BERNARDO Glucose (Glucose Gel 15 Gm Gel..Gram.) 15 gm PO Q15M PRN; Protocol PRN Reason: per Hypoglycemia Standing Ord. Hydromorphone HCl (Hydromorphone Hcl 0.5 Mg/0.5 Ml Syringe) 0.5 mg IVPUSH Q4H PRN; Protocol PRN Reason: moderate pain Insulin Human Lispro (Insulin Lispro 100 Unit/Ml 3 Ml Vial) 0 unit SUBCUT QIDACHS [facility]; Protocol Last Admin: 10/29/22 08:01 Dose: Not Given Documented By: ISABELLA Non-Admin Reason: No Insulin Coverage Loperamide HCl (Loperamide Hcl 2 Mg Capsule) 4 mg PO Q4H PRN PRN Reason: Diarrhea Ondansetron HCl (Ondansetron Hcl 4 Mg/2 Ml Vial) 4 mg IVPUSH Q4H PRN PRN Reason: Nausea and Vomiting Sodium Chloride (0.9 % Sodium Chloride Flush 3 Ml Syringe) 3 ml IVFLUSH QSHIFT [facility] Last Admin: 10/29/22 08:01 Dose: Not Given Documented By: ISABELLA Non-Admin Reason: IV Running Venlafaxine HCl (Venlafaxine Hcl Er 37.5 Mg Cap.Er.24h) 37.5 mg PO BEDTIME [facility] Last Admin: 10/28/22 22:06 Dose: 37.5 mg Documented By: BERNARDO Labs CBC & Chem 7: 10/28/22 06:04 10/28/22 06:04 Labs: Laboratory Results - last 24 hr 10/27/22 10/28/22 10/28/22 20:20 11:11 15:45 POC Glucose 202 H 187 H Stl C. cayetanensis PCR Not Detected Stool Rotavirus A PCR Not Detected Stl Adenov F 40/41 PCR Not Detected Stool Astrovirus (PCR) Not Detected Stool Campylobacter PCR Not Detected Stool Cryptosporidium PCR Not Detected Stl Sh Tox Pr E STEC PCR Not Detected Stool E coli O157 PCR Not applicable Stl Enterotoxigenic E PCR Not Detected Stool EPEC (PCR) Not Detected Stool EAEC (PCR) Not Detected Stl E. histolytica PCR Not Detected Stool Giardia Lamblia PCR Not Detected Stl P. shigelloides PCR Not Detected Stool Salmonella PCR Not Detected Stool Sapovirus (PCR) Not Detected Stl Shigella/EIEC PCR Not Detected St Y.enterocolitica PCR Not Detected Stool Vibrio (PCR) Not Detected Stl Vibrio cholerae PCR Not Detected Stl Norovirus GI/GII PCR Not Detected 10/28/22 10/29/22 19:53 07:20 POC Glucose 173 H 144 H Stl C. cayetanensis PCR Stool Rotavirus A PCR Stl Adenov F 40/41 PCR Stool Astrovirus (PCR) Stool Campylobacter PCR Stool Cryptosporidium PCR Stl Sh Tox Pr E STEC PCR Stool E coli O157 PCR Stl Enterotoxigenic E PCR Stool EPEC (PCR) Stool EAEC (PCR) Stl E. histolytica PCR Stool Giardia Lamblia PCR Stl P. shigelloides PCR Stool Salmonella PCR Stool Sapovirus (PCR) Stl Shigella/EIEC PCR St Y.enterocolitica PCR Stool Vibrio (PCR) Stl Vibrio cholerae PCR Stl Norovirus GI/GII PCR Assessment and Plan (1) MAAME (acute kidney injury): Status: Acute Plan 62-year-old male with a past medical history significant for non-insulin dependent diabetes mellitus, HTN, and HLD who presents to the ED today for intractable nausea, vomiting, and diarrhea x5 days. Pt martha be admitted to the hospital for treatment of MAAME and severe dehydration # MAAME likely secondary to pre renal azotemia from dehydration d/t GI losses--improving Cr 4--> 2, labs pending today -continue IVF, US negative for stone or hydro - nephrology consult # severe dehydration due to diarrhea, improving # nausea, vomiting, diarrhea - possibly d/t semaglutide, which he started taking at the beginning of the month - discontinued semaglutide for now, f/u with PCP about medication alternatives - ondansetron prn; - GI panel negative, give immodium, consider gi consult # leukocytosis--likely reactive and resolved # tachycardia-- likely d/t dehydration, resolved # non-insulin dependent DM -- hold home meds -- ssi # morbid obesity, weight loss education options # 5mm pulmonary nodule -- pt former smoker, quit 25 years ago -- f/u with PCP and consider optional CT in 12 months # HTN--hold Losartan d/t renal failure, add normvasc # HLD--simvastatin DNI/DNR Attending: Dr. Winters DVT Prophylaxis: Lovenox Need for inaptient: for treatment and further workup for severe dehydration and MAAME likely dc tomorrow Time Spent With Patient Time: Total time managing care of this patient today ____ minutes. Quality Stroke Does the patient have a stroke diagnosis?: No VTE Prior VTE?: No VTE Risk Level:: Medical - moderate - high VTE Device Contraindication: Treatment Not Indicated VTE Drug Contraindication: N/A - Med Ordered
[2022-10-29 11:19] LABS: Anion Gap 13 (12-20); Blood Urea Nitrogen 26 mg/dL (9-16); Calcium 9.2 mg/dL (8.4-10.2); Carbon Dioxide 26 mmol/L (22-29); Chloride 106 mmol/L (96-108); Estimated Glomerular Filt Rate 46; Glucose Random 206 mg/dL (60-115); Potassium 4.2 mmol/L (3.3-5.1); Sodium 141 mmol/L (135-145)
[2022-10-29 11:29] LABS: Glucose, Whole Blood 181 mg/dL (60-115)
[2022-10-29] MEDS: Enoxaparin Sodium 30 MG/0.3 ML SYRINGE SUBCUT (12:14)
[2022-10-29] MEDS: Loperamide HCl 2 MG CAPSULE 4 MG PO (12:14)
[2022-10-29] MEDS: Insulin Lispro 100 UNIT/ML 3 ML VIAL SUBCUT (12:15)
--- NOTE | 2022-10-29 14:53 | MHC.CM.PN ---
PATIENT NOT MEDICALLY CLEARED FOR DC. GI CONSULT PENDING. CM FOLLOWING
[2022-10-29 15:58] VITALS: BP 157/93; PULSE 80; RESP 18; TEMP 36.4; O2SAT 94
[2022-10-29 16:26] LABS: Glucose, Whole Blood 148 mg/dL (60-115)
--- NOTE | 2022-10-29 17:33 | PM.GICN ---
History of Present Illness Data of Consult Service Date: 10/29/22 Requesting physician: Wilbur Rivera Primary Care Provider: Michelle Villavicencio MD HPI Reason for consult: Diarrhea This is a 62-year-old gentleman with past medical history of type 2 diabetes, hypertension, morbid obesity, nephrolithiasis, who presented to the hospital 2 days ago for abdominal cramping, vomiting and diarrhea and was found to have severe MAAME for which she was admitted. History obtained from the patient, who states that last week on Friday, he had pork chop for dinner and 5 hours later woke up with severe abdominal cramping, nausea and vomiting. He then proceeded to have multiple rounds of loose watery diarrhea with chills but no fevers which continued over the next 2 days before he sought medical attention. When he presented to the emergency room, he was noted to be tachycardic but otherwise normotensive. Labs were significant for leukocytosis, hemoconcentration, and severe acute kidney injury with creatinine of 4.5 up from his baseline of 1.3. Further evaluation included stool testing which is negative for common pathogens. RSV and flu negative. CT abdomen pelvis did not show any colitis but did show some mild mesenteric he has and prominent lymph nodes. Over the course of last 2 days, he reports no further vomiting, but persistently has diarrhea after he eats anything. Reports good appetite and is able to keep food down. Creatinine has improved to 1.5. He lives by himself at home, and therefore does not have any sick contacts or anyone else with similar food borne illness. Patient previously used to live in [place], and moved to [place] around 6 years ago. Last colonoscopy was almost 11 years ago when he was 51 years old. Does not recall if he had polyps. Review of Systems Review of Systems: Yes all other systems are reviewed and are negative PMFSH Past Medical History Medical History Diabetes mellitus Essential hypertension Hypovitaminosis D Morbid obesity Neuropathy Pure hypercholesterolemia Family History Family History Father Diabetes Hypertension Mother Diabetes Hypertension Sister Lung cancer Family/Other Diabetes Hypertension Hypercholesterolemia Surgical History Surgical History History of arthroscopy of right knee Nephrolithiasis Social History Social History Household Members: None Housing: Condominium Do you presently have visiting nurse or other home services: No Alcohol intake: never Patient Tobacco Use Status: Former Tobacco user Tobacco use type: Cigarette e-Cigarette/Vaping Use: Never Used Second Hand Smoke Exposure: No Advance Directives Date on File: 10/27/22 service: No Current occupational status: disabled Cognitive needs: No Hearing needs: No Vision needs: Yes Meds Allergies Allergy/AdvReac Type Severity Reaction Status Date / Time shellfish derived Allergy Mild SWELLING;DIFF Verified 09/05/22 09:22 [SHELLFISH DERIVED] BREATHING shrimp [SHRIMP] Allergy Mild swelling,difficulty Verified 09/05/22 09:22 breathing Active Medications: Current Medications Acetaminophen (Acetaminophen 325 Mg Tablet) 650 mg PO Q6H PRN PRN Reason: Pain, Mild (Pain Scale 1-3) Atorvastatin Calcium (Atorvastatin Calcium 20 Mg Tablet) 20 mg PO BEDTIME [facility] Last Admin: 10/28/22 22:06 Dose: 20 mg Dextrose (Dextrose 50 % 25 Gm/50 Ml Syringe) 25 gm IVPUSH Q15M PRN; Protocol PRN Reason: per Hypoglycemia Standing Ord. Enoxaparin Sodium (Enoxaparin Sodium 30 Mg/0.3 Ml Syringe) 30 mg SUBCUT Q24H [facility] Last Admin: 10/29/22 12:14 Dose: 30 mg Gabapentin (Gabapentin 300 Mg Capsule) 300 mg PO BEDTIME [facility] Last Admin: 10/28/22 22:06 Dose: 300 mg Glucose (Glucose Gel 15 Gm Gel..Gram.) 15 gm PO Q15M PRN; Protocol PRN Reason: per Hypoglycemia Standing Ord. Hydromorphone HCl (Hydromorphone Hcl 0.5 Mg/0.5 Ml Syringe) 0.5 mg IVPUSH Q4H PRN; Protocol PRN Reason: moderate pain Insulin Human Lispro (Insulin Lispro 100 Unit/Ml 3 Ml Vial) 0 unit SUBCUT QIDACHS [facility]; Protocol Last Admin: 10/29/22 16:29 Dose: Not Given Loperamide HCl (Loperamide Hcl 2 Mg Capsule) 4 mg PO Q4H PRN PRN Reason: Diarrhea Last Admin: 10/29/22 12:14 Dose: 4 mg Ondansetron HCl (Ondansetron Hcl 4 Mg/2 Ml Vial) 4 mg IVPUSH Q4H PRN PRN Reason: Nausea and Vomiting Sodium Chloride (0.9 % Sodium Chloride Flush 3 Ml Syringe) 3 ml IVFLUSH QSHIFT [facility] Last Admin: 10/29/22 16:29 Dose: Not Given Venlafaxine HCl (Venlafaxine Hcl Er 37.5 Mg Cap.Er.24h) 37.5 mg PO BEDTIME [facility] Last Admin: 10/28/22 22:06 Dose: 37.5 mg Home Medications Medication Instructions Recorded Confirmed Last Taken Type gabapentin 300 mg capsule 300 mg PO BEDTIME 10/27/22 10/27/22 10/26/22 History semaglutide 7 mg tablet 7 mg PO BEDTIME 10/27/22 10/27/22 10/26/22 History Physical Exam Vital Signs: Vital Signs: Last Vital Signs Temp 97.5 F 10/29/22 15:58 Pulse 80 10/29/22 15:58 Resp 18 10/29/22 15:58 BP 157/93 H 10/29/22 15:58 Pulse Ox 94 10/29/22 15:58 O2 Del Method 10/29/22 15:58 BMI result Body Mass Index 43.9 Gen appear: No acute distress, well nourished HEENT: no icterus, no cervical lymphadenopathy Chest: No overt resp distress CVS: S1/S2, regular Abd: soft, nontender, nondistended Psych: Stable affect, answering questions appropriately Neuro: A/Ox3 noted to move all extremities spontaneously Ext: no peripheral edema Results Labs CBC & Chem 7: 10/28/22 06:04 10/29/22 09:18 Labs: BMP 10/29/22 09:18 Sodium 141 Potassium 4.2 Chloride 106 Carbon Dioxide 26 BUN 26 H Creatinine 1.55 H Calcium 9.2 Assessment and Plan (1) Nausea vomiting and diarrhea: Status: Acute (2) Infectious gastroenteritis: Status: Acute (3) MAAME (acute kidney injury): Status: Acute Plan Overall presentation consistent with infectious gastroenteritis likely secondary to food-borne illness given the timeline. Other possibility is side effect from simaglutide although typically not sudden onset and not associated with infectious features such as leukocytosis, chills etc. Overall trajectory is reassuring as nausea and vomiting has resolved and frequency of diarrhea has improved. Expect further improvement over the next few days. Recommend checking C diff for completion of workup. Endoscopic evaluation not indicated in the setting of acute diarrhea. Outpatient appt will be scheduled for interval follow up as well as to discuss colorectal cancer screening. Thank you for allowing me to participate in his care. Please do not hesitate to contact me for any questions or concerns. Time Spent With Patient Time: Total time managing care of this patient today ____ minutes. Procedures Date of Service Date of Service: 10/29/22
[2022-10-29 17:59] LABS: CDiff Gene PCR NEGATIVE (Negative)
[2022-10-29 20:22] VITALS: BP 149/84; PULSE 78; RESP 18; TEMP 36.4; O2SAT 97
[2022-10-29 20:39] LABS: Glucose, Whole Blood 122 mg/dL (60-115)
[2022-10-29] MEDS: Gabapentin 300 MG CAPSULE PO (21:42)
[2022-10-29] MEDS: Venlafaxine HCl ER 37.5 MG CAP.ER.24H PO (21:42)
[2022-10-29] MEDS: Atorvastatin Calcium 20 MG TABLET PO (21:42)
[2022-10-29] MEDS: 0.9 % Sodium Chloride Flush 3 ML SYRINGE IVFLUSH (21:44)
[2022-10-30 04:00] VITALS: BP 150/75; PULSE 76; RESP 17; TEMP 36.8; O2SAT 93
[2022-10-30 07:51] LABS: Glucose, Whole Blood 130 mg/dL (60-115)
[2022-10-30 08:00] VITALS: BP 137/93; PULSE 78; RESP 18; TEMP 36.6; O2SAT 93
[2022-10-30] MEDS: 0.9 % Sodium Chloride Flush 3 ML SYRINGE IVFLUSH (08:23)
[2022-10-30] MEDS: Loperamide HCl 2 MG CAPSULE 4 MG PO (08:27)
--- NOTE | 2022-10-30 09:24 | P.DS_ITS ---
DS: Providers Provider Date of Service: 10/30/22 Date of admission: 10/27/22 09:37 Primary care physician: Michelle Villavicencio MD Consults: 10/27/22 10:06 Consult to Nephrology Routine Consulting Provider: Obey Ansari Reason for consultation: MAAME 10/29/22 11:13 Consult to Gastroenterology Routine Consulting Provider: Anastasia Veloz Reason for consultation: Diarrhea and abdominal pain Has provider been notified: No DS: Diagnosis Discharge Diagnosis (1) Nausea vomiting and diarrhea: Status: Resolved (2) Infectious gastroenteritis: Status: Resolved (3) MAAME (acute kidney injury): Status: Resolved DS: Summary Hospital Course Hospital Course: ? Nausea, vomiting, and diarrhea x5 days?<JAMILA Clark - Last Filed: 10/27/22 10:05> ? ? ? Pt? is a 62-year-old male with a past medical history significant for non- insulin dependent diabetes mellitus, HTN, and HLD? who presents to the ED? today for intractable nausea, vomiting, and diarrhea x5 days.? patient reports that he ate dinner on Friday night without incident, but then began to feel nauseous around 22:00 and had 5-6 episodes of vomiting and diarrhea throughout the night. Could not tolerate anything PO, espeically solids, over the next 54 days; anthying po would result in more vomiting and diarrhea. The patient denies any precipitating abdominal pain, but notes that he had abdominal pain associated with vomiting. Says he felt feverish at times, but never took his temperature. Notes increased heartburn and is not urinating as much. Denies chest pain/pressure, palpitations, or SOB. Denies hematemesis, hematochezia, or painful urination. Of note, pt has been experiencing a lot of emotional stress lately as he put has his of 39 years placed in a SNF three months ago for dementia, and this is the first holiday season he's had without her.? At the begining of the month was startd on venlafaxine for depression and insomnia, and semaglutide for obesity and DM. In the ED, pt treated with Zofran, loperamide, and IVF.? Labs were significant for leukocytosis of 13.7,? creatinine 4.53, BUN of 69, lipase 155. CT of abdomen and pelvis? was ordered to r/o urologic obstruction, but found no nephrolithiasis, hydronephrosis, bowel obstruction, or acute abnormality. CT did note hepatomegaly and hepatic steatosis, mild haziness of the upper mesentery possibly indicating mesentery adenitis, and a 5 mm pulmonary nodule in the left lower lobe.? Received 2 L IV which did not significantly improve his creatinine. Pt will be admitted to the hospital for treatment and further evaluation of MAAME and severe dehydration. Hospital course: He presented with diarrhea, dehydration and found to have acute renal failure, initial Creatine was 4.53. Diarrhea believed to infecdtious (likely viral) gastroenteritis, initial WBC was high but subsequently has normalized with hydration alone, work up included negative Cdif and negative stool panel and unremarkable CT. GI recommends outpatient follow up for colonoscopy. renal function has improved to presently creatine of 1.5. Of there was concer that diarrhea could have been related to Semaglutide for diabetes and obesity and was on hold but can restart given liklyhood of infectious process. Diarrhea has now resolved. WBC is normal, he is tolerating regular diet and will be discharged home. Time Spent with Patient Time attestation: Total time managing care of this patient today ____ minutes. Discharge coordination time: Greater than 30 minutes Quality: Safe Use of Opioids Does Pt have an Active Cancer Diagnosis on the Problem List?: No Quality: Stroke Does the patient have a stroke diagnosis?: No Physical Exam Vital Signs: Vital Signs: Last Vital Signs Temp 97.9 F 10/30/22 08:00 Pulse 78 10/30/22 08:00 Resp 18 10/30/22 08:00 BP 137/93 H 10/30/22 08:00 Pulse Ox 93 10/30/22 08:00 O2 Del Method 10/30/22 08:00 BMI result Body Mass Index 43.9 Const: Other: General: AO X 3, no acute distress Resp: CTA bilateral CVS: S1,S2,RRR GI: +BS, NT, no distention Skin: No rash Neuro: motor grossly intact Psych: appropriate affect DS: Data Data Completed and Pending Labs on day of discharge: Laboratory Results - last 24 hr 10/29/22 10/29/22 10/29/22 09:18 11:23 16:00 Sodium 141 Potassium 4.2 Chloride 106 Carbon Dioxide 26 Anion Gap 13 BUN 26 H Creatinine 1.55 H Estim Creat Clear Calc 54.0 Estimated GFR 46 POC Glucose 181 H Random Glucose 206 H D Calcium 9.2 C. difficile Tox B Gene NEGATIVE 10/29/22 10/29/22 10/30/22 16:01 20:28 07:26 Sodium Potassium Chloride Carbon Dioxide Anion Gap BUN Creatinine Estim Creat Clear Calc Estimated GFR POC Glucose 148 H 122 H 130 H Random Glucose Calcium C. difficile Tox B Gene Discharge Plan Discharge Anticipated Discharge Date/Time: 10/30/22 09:21 Patient Disposition: Home Health Service Discharge Diagnosis: MAAME, viral gastrointeritis, Referrals: Michelle Lind MD [Primary Care Provider] - 1 Week Obey Ansari MD [Physician] - 1 Week Discharge Medications: New amlodipine 5 mg Tablet 5 mg PO DAILY Qty: 30 0RF Protocol: Hold for SBP< HOLD for SBP < : 90 Continued simvastatin 40 mg tablet 40 mg PO BEDTIME 90 Days Qty: 90 3RF metformin 500 mg tablet 1,000 mg PO BID Qty: 360 3RF gabapentin 300 mg capsule 300 mg PO BEDTIME semaglutide 7 mg tablet 7 mg PO BEDTIME Discontinued losartan 100 mg tablet 100 mg PO DAILY Qty: 90 3RF No Action venlafaxine 37.5 mg capsule,extended release 24hr 37.5 mg PO BEDTIME 90 Days Qty: 90 0RF Discharge Orders: Discharge Order (Routine); Ordered 10/30/22 Ordered By: Wilbur Winters Diet: Advance to usual diet Activity on Discharge: As tolerated Stand Alone Forms: Patient Portal Discharge page Care Plan Goals: Full recovery from diarrha, and renal failure Health Concerns: renal failure, diarrhea, obesity Plan of Treatment: drink plenty of fluid, avoid taking motrin, advil or other over the counter pain medication Follow up with Dr. Simental for colonscopy Follow up with your Doctor in a week, call for appointment Assessment: as above Discharge Date/Time: 10/30/22 15:20
--- NOTE | 2022-10-30 09:50 | P.PNNP_ITS ---
Subjective Subjective Date of Service: 10/30/22 Interval history: F/u on MAAME, dehydration interval history: no more n/v but persistent diarrhea and had some pain after meal yesterday Physical Exam Vital Signs: Vital Signs: Last Vital Signs Temp 97.9 F 10/30/22 08:00 Pulse 78 10/30/22 08:00 Resp 18 10/30/22 08:00 BP 137/93 H 10/30/22 08:00 Pulse Ox 93 10/30/22 08:00 O2 Del Method 10/30/22 08:00 BMI result Body Mass Index 43.9 Objective Data Labs CBC & Chem 7: 10/28/22 06:04 10/29/22 09:18 Labs: Laboratory Results - last 24 hr 10/29/22 10/29/22 10/29/22 09:18 11:23 16:00 Sodium 141 Potassium 4.2 Chloride 106 Carbon Dioxide 26 Anion Gap 13 BUN 26 H Creatinine 1.55 H Estim Creat Clear Calc 54.0 Estimated GFR 46 POC Glucose 181 H Random Glucose 206 H D Calcium 9.2 C. difficile Tox B Gene NEGATIVE 10/29/22 10/29/22 10/30/22 16:01 20:28 07:26 Sodium Potassium Chloride Carbon Dioxide Anion Gap BUN Creatinine Estim Creat Clear Calc Estimated GFR POC Glucose 148 H 122 H 130 H Random Glucose Calcium C. difficile Tox B Gene Procedures Date of Service Date of Service: 10/30/22 Assessment & Plan Assessment and plan (1) MAAME (acute kidney injury): Status: Acute Plan 62-year-old male with a past medical history significant for non-insulin dependent diabetes mellitus, HTN, and HLD who presents to the ED today for int ractable nausea, vomiting, and diarrhea x5 days. Pt martha be admitted to the hospital for treatment of MAAME and severe dehydration no evidence of CKD or proteinuria # MAAME likely secondary to pre renal azotemia from volume depletion US negative for stone or hydro -continue IVF, his creatinine remains stable follow up with him as an outpatient when he is discharged for his CKD and hypertension Time Spent With Patient Time: Total time managing care of this patient today ____ minutes. Progress Note: Quality Stroke Does the patient have a stroke diagnosis?: No
[2022-10-30 09:59] LABS: Anion Gap 10 (12-20); Blood Urea Nitrogen 17 mg/dL (9-16); Calcium 9.4 mg/dL (8.4-10.2); Carbon Dioxide 29 mmol/L (22-29); Chloride 106 mmol/L (96-108); Creatinine Clr Calc Pharmacy 57.7; Estimated Glomerular Filt Rate 49; Glucose Random 209 mg/dL (60-115); Potassium 4.1 mmol/L (3.3-5.1); Sodium 141 mmol/L (135-145)
[2022-10-30] MEDS: Enoxaparin Sodium 30 MG/0.3 ML SYRINGE SUBCUT (11:29)
[2022-10-30 11:35] LABS: Glucose, Whole Blood 148 mg/dL (60-115)
[2022-10-30] MEDS: amLODIPine Besylate 5 MG TABLET PO (13:33)
--- NOTE | 2022-10-30 13:47 | MHC.CM.PN ---
HCP COMPLETED AND UPLOADED INTO [facility]. PATIENT HAS ORIGINAL AND ONE COPY ONE COPY PLACED IN PAPER CHART HE IS DC TODAY - HOME ([facility]ARE)
--- NOTE | 2022-10-30 14:04 | MHC.CM.PN ---
IMM 10/29 IN CHART
== END 2022-10-30 15:20 | disposition home health service (06) | DRG 392 ==
LOC: HO.ED 10-27 05:56 → HO.EDOVER 10-27 09:50 → HO.S3 10-27 13:41
PROVIDERS: Admitting Provider Student in an Organized Health Care Education/Training Program; Emergency Provider Emergency Medicine; PCP Internal Medicine; Visit Provider Internal Medicine
DX: A08.4 Viral intestinal infection, unspecified (principal); Z68.41 Body mass index [BMI] 40.0-44.9, adult; N17.9 Acute kidney failure, unspecified; E86.0 Dehydration; D72.829 Elevated white blood cell count, unspecified; Z66 Do not resuscitate; R91.1 Solitary pulmonary nodule; R00.0 Tachycardia, unspecified; E66.01 Morbid (severe) obesity due to excess calories; I12.9 Hypertensive chronic kidney disease with stage 1 through stage 4 chronic kidney disease, or unspecified chronic kidney disease; N18.9 Chronic kidney disease, unspecified; E11.22 Type 2 diabetes mellitus with diabetic chronic kidney disease; K76.0 Fatty (change of) liver, not elsewhere classified; E78.00 Pure hypercholesterolemia, unspecified; Z20.822 Contact with and (suspected) exposure to COVID-19; Z87.891 Personal history of nicotine dependence; Z91.013 Allergy to seafood; Z79.84 Long term (current) use of oral hypoglycemic drugs; Z79.899 Other long term (current) drug therapy
CPT/HCPCS: 0241U; 36415; 74176; 76775; 80048; 80076; 82947; 83690; 84443; 85027; 87493; 87507; 99285; J1650; J2405

== ENCOUNTER → 2022-12-09 08:14 | Outpatient (BNVA) | payer MEDICARE, MEDICAID, SELFPAY | PROVIDERS: PCP Internal Medicine; Visit Provider Internal Medicine | DX: Z01.818 Encounter for other preprocedural examination (principal); E66.01 Morbid (severe) obesity due to excess calories; Z68.41 Body mass index [BMI] 40.0-44.9, adult | CPT/HCPCS: 99212 ==

== ENCOUNTER 2023-01-24 10:45 | Outpatient (REF) | payer MEDICARE, MEDICAID, SELFPAY ==
--- NOTE | ~2023-01-24 | US_ITS ---
EXAMINATION: US ABDOMEN COMPLETE CLINICAL INFORMATION: Unspecified abdominal pain. COMPARISON: Renal ultrasound and CT abdomen and pelvis 10/27/2022. TECHNIQUE: Real-time imaging of the abdominal viscera. FINDINGS: PANCREAS: Normal. ABDOMINAL AORTA: The proximal aorta could not be seen but the mid and distal aorta appeared unremarkable. INFERIOR VENA CAVA: Visualized portions are normal. LIVER: Accurate liver measurements were not obtained but on prior CT, the liver measured 18.2 cm in greatest length and I suspect that it is still enlarged. The liver contour is normal. There is diffuse increased liver parenchymal echogenicity, consistent with hepatic steatosis as can be seen on the prior CT scan. No focal hepatic lesion. There is no intrahepatic biliary duct dilatation seen. GALLBLADDER: The gallbladder is physiologically distended without evidence of stones, sludge, polyps, wall thickening or pericholecystic fluid. COMMON BILE DUCT: Normal in caliber measuring 0.3 cm in diameter. RIGHT KIDNEY: A tiny amount of perinephric fluid is present. No hydronephrosis. No renal calculi or focal parenchymal lesions. The kidney measures 12.4 cm in maximum dimension. LEFT KIDNEY: No hydronephrosis. No renal calculi or focal parenchymal lesions. The kidney measures 12.6 cm in maximum dimension. SPLEEN: Normal. The spleen measures 11.1 cm in maximum dimension. FREE FLUID: None. US/US abdomen complete IMPRESSION: Hepatic steatosis.
== END 2023-01-24 10:46 | disposition home or self-care (01) ==
LOC: HO.US 10:45
PROVIDERS: PCP Internal Medicine; Visit Provider Internal Medicine
DX: R10.9 Unspecified abdominal pain (principal)
CPT/HCPCS: 76700

== ENCOUNTER 2023-03-27 06:43 | Outpatient (REF) | payer MEDICARE, SELFPAY ==
[2023-03-27 07:32] LABS: Estimated Average Glucose 266 mg/dL; Hemoglobin A1c % 10.9 %
[2023-03-27 07:54] LABS: Alanine Aminotransferase 24 U/L (0-40); Albumin Level 4.3 g/dL (3.5-5.0); Alkaline Phosphatase 103 U/L (39-117); Anion Gap 14 (12-20); Aspartate Amino Transferase 21 U/L (5-37); Bilirubin Total 0.7 mg/dL (0.0-1.0); Blood Urea Nitrogen 15 mg/dL (9-16); Calcium 10.1 mg/dL (8.4-10.2); Carbon Dioxide 28 mmol/L (22-29); Chloride 102 mmol/L (96-108); Cholesterol 124 mg/dL; Estimated Glomerular Filt Rate 51; Glucose Random 276 mg/dL (60-115); HDL Cholesterol 29 mg/dL; LDL Cholesterol Calculated 43 mg/dl; Potassium 4.6 mmol/L (3.3-5.1); Sodium 139 mmol/L (135-145); Total Protein 7.1 g/dL (6.5-8.0); Triglycerides 263 mg/dL
[2023-03-27 08:13] LABS: PSA,Total (Free>4and<10) 1.49 ng/mL (0.00-4.00)
== END 2023-03-27 06:44 | disposition home or self-care (01) ==
LOC: HO.LAB 06:43
PROVIDERS: Absent Provider Nurse Practitioner Family; PCP Internal Medicine; Visit Provider Internal Medicine
DX: E66.01 Morbid (severe) obesity due to excess calories (principal); E11.9 Type 2 diabetes mellitus without complications; E78.5 Hyperlipidemia, unspecified; Z12.5 Encounter for screening for malignant neoplasm of prostate
CPT/HCPCS: 36415; 80053; 80061; 83036; 84153

== ENCOUNTER 2023-05-15 15:50 | Emergency (ER) | payer OTHER, SELFPAY ==
[2023-05-15 16:02] VITALS: BP 104/72; BP 126/86; PULSE 87; PULSE 94; RESP 15; TEMP 37.7; O2SAT 93; O2SAT 97; BMI 59.6
--- NOTE | 2023-05-15 16:21 | PC.NURSE ---
per ems pt was being seen by [facility] at home, pts POC was 576, hasn't been feeling well for 10-12 days, pt reports feeling dizzy and nauseous, has been peeing more frequently.
[2023-05-15 16:27] VITALS: BP 126/86; PULSE 91; RESP 14; TEMP 37.3; O2SAT 98
--- NOTE | 2023-05-15 17:04 | PC.NURSE ---
fluids hung per order.
--- NOTE | 2023-05-15 17:15 | ED.GENADULT ---
HPI - General Adult General Chief complaint: Recheck/Abnormal Lab/Rx Stated complaint: HYPERGLYCEMIA, 576 Time Seen by Provider: 05/15/23 16:04 Source: patient Mode of arrival: EMS History of Present Illness HPI narrative: 62-year-old male with history of hypertension, diabetes, presents with 3-4 days of increasing polydipsia, polyuria, sore throat without fever or chills and denies any shortness of breath or chest pain but states he has had significant acid reflux. And states that he has recently started having some diarrhea but denies any nausea or vomiting. Patient has not been checking his blood sugars due to the battery dying out and is giving some of his history tearfully as he is recently lost his in January of this year. Related Data Home Medications Medication Instructions Recorded Confirmed gabapentin 300 mg capsule 300 mg PO BEDTIME 10/27/22 01/09/23 Previous Rx's Medication Instructions Recorded amlodipine 5 mg tablet 5 mg PO DAILY 90 days #90 tabs 01/09/23 atorvastatin 40 mg tablet 40 mg PO BEDTIME 90 days #90 tabs 01/09/23 losartan 100 mg tablet 100 mg PO DAILY 90 days #90 tabs 01/09/23 metformin 500 mg tablet 1,000 mg PO BID #360 tabs 01/09/23 blood pressure monitor #1 ea 01/24/23 trazodone 50 mg tablet 50 mg PO BEDTIME PRN sleep 30 days 01/24/23 #30 tabs pioglitazone 15 mg tablet 15 mg PO DAILY #90 tabs 03/18/23 Allergies Allergy/AdvReac Type Severity Reaction Status Date / Time shellfish derived Allergy Mild SWELLING;DIFF Verified 03/13/23 09:24 [SHELLFISH DERIVED] BREATHING shrimp [SHRIMP] Allergy Mild swelling,difficulty Verified 03/13/23 09:24 breathing Review of Systems Review of Systems: Pertinent positives and negatives as stated in HPI [facility] Past Medical History Source: nursing notes reviewed Medical History Diabetes mellitus Essential hypertension Hypovitaminosis D Morbid obesity Neuropathy Pure hypercholesterolemia Surgical History History of arthroscopy of right knee Nephrolithiasis Family History Family History Father Diabetes Hypertension Mother Diabetes Hypertension Sister Lung cancer Family/Other Diabetes Hypertension Hypercholesterolemia Social History Social History Household Members: None Housing: Condominium Do you presently have visiting nurse or other home services: No Alcohol intake: never Patient Tobacco Use Status: Former Tobacco user Tobacco use type: Cigarette Smoked in Last 30 Days: No e-Cigarette/Vaping Use: Never Used Second Hand Smoke Exposure: No Use of substances other than those prescribed or required for medical reasons: No Advance Directives: Yes Advance Directives on File: Yes Advance Directives Date on File: 10/27/22 service: No Current occupational status: disabled Cognitive needs: No Hearing needs: No Vision needs: Yes Physical Exam ED Vital Signs: Vital Signs - 24 hr 05/15/23 16:02 05/15/23 16:27 05/15/23 20:03 Temperature 100 F 99.2 F 99.2 F Pulse Rate 87 91 76 Respiratory Rate 15 14 20 Blood Pressure 126/86 126/86 125/79 Pulse Oximetry 93 98 98 Oxygen Delivery Method Room Air Room Air Room Air BMI result Body Mass Index 59.6 VITAL SIGNS: Reviewed. GENERAL: Well developed, well nourished, in no acute distress. HEAD: Normocephalic/atraumatic EYES: PERRLA, EOMI EARS: Ext canals without abnormality NOSE: Nares patent bilateral OROPHARYNX: Vesicular lesions noted to the base of the uvula, posterior pharynx clear, dry mucosa NECK: Supple, no adenopathy LUNGS: Normal breath sounds. No adventitious sounds or accessory muscle use. SpO2<98> CARDIOVASCULAR: Regular rate and rhythm without noted murmurs, no JVD or lower extremity edema. ABDOMEN: Soft, non-tender, non-distended with bowel sounds. MUSCULOSKELETAL: No tenderness, deformities, or effusions noted on gross inspection. EXTREMITIES: No cyanosis, clubbing or edema. SKIN: Inspection of the skin reveals no rashes NEUROLOGIC: Alert and oriented x 4. Strength and sensation to light touch were grossly intact x 4. Medications Administered Discontinued Medications Generic Name Dose Route Start Last Admin Trade Name Freq PRN Reason Stop Dose Admin Sodium Chloride 1,000 mls @ 999 mls/hr 05/15/23 16:30 05/15/23 18:38 Ns IV 05/15/23 17:30 Infused .Q1H1M JOSUE Infusion Sodium Chloride 1,000 mls @ 999 mls/hr 05/15/23 17:45 05/15/23 19:20 Ns IV 05/15/23 18:45 Infused .Q1H1M JOSUE Infusion Insulin Human Lispro 5 unit 05/15/23 17:37 05/15/23 17:50 Insulin Lispro 100 Unit/Ml 3 Ml Vial SUBCUT 05/15/23 17:38 5 unit ONCE ONE Administration Medical Decision Making Medical Decision Making MDM Narrative: 62-year-old male with history and clinical presentation, DDX: Poor appetite due to Depression/viral illness, hyperglycemia, dehydration, lower clinical suspicion for DKA/HHS. 2040: I reviewed all investigations and hematologic studies do not demonstrate any evidence of acute anemia or leukocytosis and patient has remained afebrile while here in the emergency room. Due to the significant elevated glucose level with corresponding pseudohyponatremia there is no evidence of DKA or HHS although patient clearly has a component of dehydration with received 2 L of IV fluids as well as 5 units of subcutaneous insulin with significant improvement in his glucose levels and patient states that he feels much better. Will repeat a basic metabolic panel as patient also was noted to have MAAME. Will proceed with discharge in the patient as he will be unable to get back home due to transportation restraints and if there are any findings on his basic metabolic panel he will be called back. Differential Diagnosis Please see the discussion above Admission/Observation Consideration of admission/observation: Escalation of care including admission/observation considered Lab Data Please see the discussion above 05/15/23 16:32 05/15/23 16:32 Labs: Lab Results 05/15/23 05/15/23 05/15/23 Range/Units 16:07 16:30 16:32 WBC 10.8 (4.8-10.8) X10*3/uL RBC 5.34 (4.60-5.80) X10*6/uL Hgb 14.9 (14.0-18.0) g/dl Hct 43.3 (42.0-52.0) % MCV 81.1 (80.0-98.0) fL MCH 27.9 (27.0-33.0) pg MCHC 34.4 (31.0-36.0) g/dl RDW 13.1 (11.0-16.0) % Plt Count 371 (160-400) X10*3/uL MPV 9.7 (9.4-12.4) fL Immature Gran % (Auto) 0.6 H (0.0-0.4) % Neut % (Auto) 62.1 (45-73) % Lymph % (Auto) 28.2 (20-40) % Bryan % (Auto) 7.1 (2-11) % Eos % (Auto) 1.6 (0-4) % Baso % (Auto) 0.4 (0-2) % Lymph # (Auto) 3.0 (1.2-4.9) X10*3/uL Bryan # (Auto) 0.8 (0.1-1.2) X10*3/uL Eos # (Auto) 0.2 (0.0-0.4) X10*3/uL Baso # (Auto) 0.0 (0.0-0.2) X10*3/uL Abs Immat Gran (auto) 0.07 H (0.00-0.03) X10*3/uL Absolute Neuts (auto) 6.7 (2.0-8.3) x10*3/uL Absolute Nucleated RBC 0.000 (0.0-0.012) X10*3/uL Nucleated RBC % (auto) 0.0 (0.0-0.2) /100WBC Sodium (135-145) mmol/L Potassium (3.3-5.1) mmol/L Chloride (96-108) mmol/L Carbon Dioxide (22-29) mmol/L Anion Gap (12-20) BUN (9-16) mg/dL Creatinine (0.5-1.4) mg/dL Estim Creat Clear Calc Estimated GFR POC Glucose > 600 H* (60-115) mg/dL Random Glucose (60-115) mg/dL Calcium (8.4-10.2) mg/dL Total Bilirubin (0.0-1.0) mg/dL AST (5-37) U/L ALT (0-40) U/L Alkaline Phosphatase (39-117) U/L Total Creatine Kinase (38-174) U/L Total Protein (6.5-8.0) g/dL Albumin (3.5-5.0) g/dL Beta-Hydroxybutyrate (0.02-0.27) mmol/L Urine Color Urine Appearance Urine pH (5.0-9.0) Ur Specific [place] (1.005-1.025) Urine Protein (Neg-Trace) mg/dL Urine Glucose (UA) (Negative) mg/dL Urine Ketones (Negative) mg/dL Urine Blood (Negative) Urine Nitrite (Negative) Ur Leukocyte Esterase (Negative) Urine RBC (0-2) /HPF Urine WBC (0-5) /HPF Ur Squamous Epith Cells (0-2) /HPF Urine Bacteria (None Seen) Hyaline Casts (0-2) /LPF Influenza Type A (PCR) NEGATIVE (Negative) Influenza Type B (PCR) NEGATIVE (Negative) RSV RNA Qual (PCR) NEGATIVE (Negative) SARS-CoV-2 RNA (RT-PCR) NEGATIVE (Negative) 05/15/23 05/15/23 05/15/23 Range/Units 16:32 17:07 19:20 WBC (4.8-10.8) X10*3/uL RBC (4.60-5.80) X10*6/uL Hgb (14.0-18.0) g/dl Hct (42.0-52.0) % MCV (80.0-98.0) fL MCH (27.0-33.0) pg MCHC (31.0-36.0) g/dl RDW (11.0-16.0) % Plt Count (160-400) X10*3/uL MPV (9.4-12.4) fL Immature Gran % (Auto) (0.0-0.4) % Neut % (Auto) (45-73) % Lymph % (Auto) (20-40) % Bryan % (Auto) (2-11) % Eos % (Auto) (0-4) % Baso % (Auto) (0-2) % Lymph # (Auto) (1.2-4.9) X10*3/uL Bryan # (Auto) (0.1-1.2) X10*3/uL Eos # (Auto) (0.0-0.4) X10*3/uL Baso # (Auto) (0.0-0.2) X10*3/uL Abs Immat Gran (auto) (0.00-0.03) X10*3/uL Absolute Neuts (auto) (2.0-8.3) x10*3/uL Absolute Nucleated RBC (0.0-0.012) X10*3/uL Nucleated RBC % (auto) (0.0-0.2) /100WBC Sodium 129 L (135-145) mmol/L Potassium 4.6 (3.3-5.1) mmol/L Chloride 95 L (96-108) mmol/L Carbon Dioxide 21 L (22-29) mmol/L Anion Gap 18 (12-20) BUN 15 (9-16) mg/dL Creatinine 1.66 H (0.5-1.4) mg/dL Estim Creat Clear Calc 60.7 Estimated GFR 42 POC Glucose 383 H* (60-115) mg/dL Random Glucose 671 H* (60-115) mg/dL Calcium 10.2 (8.4-10.2) mg/dL Total Bilirubin 0.8 (0.0-1.0) mg/dL AST 22 (5-37) U/L ALT 23 (0-40) U/L Alkaline Phosphatase 120 H (39-117) U/L Total Creatine Kinase 111 (38-174) U/L Total Protein 6.8 (6.5-8.0) g/dL Albumin 3.8 (3.5-5.0) g/dL Beta-Hydroxybutyrate 0.69 H (0.02-0.27) mmol/L Urine Color Yellow Urine Appearance Clear Urine pH 7.0 (5.0-9.0) Ur Specific [place] >= 1.030 H (1.005-1.025) Urine Protein Negative (Neg-Trace) mg/dL Urine Glucose (UA) >=1000 H (Negative) mg/dL Urine Ketones Negative (Negative) mg/dL Urine Blood Negative (Negative) Urine Nitrite Negative (Negative) Ur Leukocyte Esterase Negative (Negative) Urine RBC 0-2 (0-2) /HPF Urine WBC 6-10 H (0-5) /HPF Ur Squamous Epith Cells 0-2 (0-2) /HPF Urine Bacteria None Seen (None Seen) Hyaline Casts 0-2 (0-2) /LPF Influenza Type A (PCR) (Negative) Influenza Type B (PCR) (Negative) RSV RNA Qual (PCR) (Negative) SARS-CoV-2 RNA (RT-PCR) (Negative) Independent Interpretation I performed an independent interpretation of an: EKG External Record Review External record reviewed: Outpatient record and Prior outpatient labs Chronic Conditions Patient?s care impacted by: Diabetes Critical Care Time Critical Care Time Critical Care Time: Yes Total Critical Care Time: 30 Attestation: I personally attest to this time spent taking care of the patient. Discharge Plan Discharge Clinical Impression: Viral syndrome, Hyperglycemia due to diabetes mellitus, Dehydration, MAAME (acute kidney injury) Patient Disposition: Home, Self-Care Instructions: Dehydration (ED), Viral Syndrome (ED), Diabetic Hyperglycemia (ED) Additional Instructions: 1. Resume all home medications as prescribed. 2. Please get a battery for your glucometer so you can better control your diabetes. 3. Please follow-up with your primary care provider next 1-2 days. Return to the ER for any worsening symptoms. Prescriptions: No Action trazodone 50 mg tablet 50 mg PO BEDTIME PRN (Reason: sleep) 30 Days Qty: 30 1RF (DME) blood pressure monitor Kit See Rx Instructions .Route Qty: 1 0RF Rx Instructions: As directed pioglitazone 15 mg tablet 15 mg PO DAILY Qty: 90 1RF gabapentin 300 mg capsule 300 mg PO BEDTIME amlodipine 5 mg tablet 5 mg PO DAILY 90 Days Qty: 90 1RF Protocol: Hold for SBP< HOLD for SBP < : 90 losartan 100 mg tablet 100 mg PO DAILY 90 Days Qty: 90 1RF atorvastatin 40 mg tablet 40 mg PO BEDTIME 90 Days Qty: 90 1RF metformin 500 mg tablet 1,000 mg PO BID Qty: 360 3RF Referrals: Michelle Lind MD [Primary Care Provider] -
[2023-05-15 20:03] VITALS: BP 125/79; PULSE 76; RESP 20; TEMP 37.3; O2SAT 98
--- NOTE | 2023-05-15 21:48 | PC.NURSE ---
This flex o writer operator assumed care of this Pt at 1900. Pt A&Ox4, denies any pain. Pt reports not being able to eat or drink and not feeling well. Repeat POC 383 at 1920, VSS. Pt given sandwich and PO fluids, tolerated well.
[2023-05-15 22:00] VITALS: BP 131/88; PULSE 87; RESP 18; TEMP 37.1; O2SAT 97
--- NOTE | 2023-05-15 22:27 | PC.NURSE ---
Pt d/c home- critical result received NOE 388- MD aware- no need to call back patient to the ER
== END 2023-05-15 22:09 | disposition home or self-care (01) ==
PROVIDERS: Emergency Provider Student in an Organized Health Care Education/Training Program; PCP Internal Medicine
DX: B34.9 Viral infection, unspecified (principal); E86.0 Dehydration; E11.22 Type 2 diabetes mellitus with diabetic chronic kidney disease; E11.65 Type 2 diabetes mellitus with hyperglycemia; I12.9 Hypertensive chronic kidney disease with stage 1 through stage 4 chronic kidney disease, or unspecified chronic kidney disease; N18.30 Chronic kidney disease, stage 3 unspecified; N17.9 Acute kidney failure, unspecified; E66.01 Morbid (severe) obesity due to excess calories; Z68.43 Body mass index [BMI] 50.0-59.9, adult; Z20.822 Contact with and (suspected) exposure to COVID-19; Z20.828 Contact with and (suspected) exposure to other viral communicable diseases; Z87.891 Personal history of nicotine dependence; Z79.899 Other long term (current) drug therapy
CPT/HCPCS: 0241U; 36415; 80048; 80053; 81001; 82010; 82550; 82947; 85025; 87086; 96360; 96361; 99284

== ENCOUNTER 2023-05-23 13:05 | Emergency (ER) | payer OTHER, SELFPAY ==
--- NOTE | 2023-05-23 14:08 | ED.GENADULT ---
HPI - General Adult General Chief complaint: Recheck/Abnormal Lab/Rx Stated complaint: high BS 550 Time Seen by Provider: 05/23/23 19:45 Source: patient, RN notes reviewed and old records reviewed Mode of arrival: ambulatory Limitations: no limitations History of Present Illness HPI narrative: 62-year-old male with past medical history significant for chronic kidney disease, hyperlipidemia, diabetes presents for evaluation of elevated blood sugars This is the patient's 2nd visit in the last week for similar He is due to follow-up with his PCP on 05/28/2023 Patient states that he occasionally has dizziness, blurry vision and urinary frequency Otherwise reports he feels well He checks his blood sugars today and it was over 500 He reports that at his adult daycare they checked his blood sugar and it was reported to be ?over 800. ? The patient takes metformin 1000 mg b.i.d. He also takes Piaglitazone 15 mg daily The patient does not take insulin Related Data Home Medications Medication Instructions Recorded Confirmed gabapentin 300 mg capsule 300 mg PO BEDTIME 10/27/22 01/09/23 Previous Rx's Medication Instructions Recorded amlodipine 5 mg tablet 5 mg PO DAILY 90 days #90 tabs 01/09/23 atorvastatin 40 mg tablet 40 mg PO BEDTIME 90 days #90 tabs 01/09/23 losartan 100 mg tablet 100 mg PO DAILY 90 days #90 tabs 01/09/23 metformin 500 mg tablet 1,000 mg PO BID #360 tabs 01/09/23 blood pressure monitor #1 ea 01/24/23 trazodone 50 mg tablet 50 mg PO BEDTIME PRN sleep 30 days 01/24/23 #30 tabs pioglitazone 15 mg tablet 15 mg PO DAILY #90 tabs 03/18/23 pioglitazone 15 mg tablet 15 mg PO DAILY #14 tabs 05/23/23 Allergies Allergy/AdvReac Type Severity Reaction Status Date / Time shellfish derived Allergy Mild SWELLING;DIFF Verified 03/13/23 09:24 [SHELLFISH DERIVED] BREATHING shrimp [SHRIMP] Allergy Mild swelling,difficulty Verified 03/13/23 09:24 breathing Review of Systems Constitutional: Constitutional: Reports as per HPI, Denies chills, Denies fatigue, Denies fever(s) and Denies headache(s) ENT: Denies headache(s) Cardiovascular: Cardiovascular: Denies chest pain and Denies dyspnea Respiratory: Respiratory: Denies cough and Denies dyspnea Gastrointestinal: Gastrointestinal: Denies abdominal pain, Denies constipation and Denies vomiting Genitourinary: Genitourinary: Denies difficulty urinating and Denies dysuria Neurologic: Denies headache(s) and Denies focal weakness Endocrine: Endocrine: Denies fatigue PMFSH Past Medical History Medical History Diabetes mellitus Essential hypertension Hypovitaminosis D Morbid obesity Neuropathy Pure hypercholesterolemia Surgical History History of arthroscopy of right knee Nephrolithiasis Family History Family History Father Diabetes Hypertension Mother Diabetes Hypertension Sister Lung cancer Family/Other Diabetes Hypertension Hypercholesterolemia Social History Social History Household Members: None Housing: Condominium Do you presently have visiting nurse or other home services: No Alcohol intake: never Patient Tobacco Use Status: Former Tobacco user Tobacco use type: Cigarette e-Cigarette/Vaping Use: Never Used Second Hand Smoke Exposure: No Advance Directives: Yes Advance Directives on File: Yes Advance Directives Date on File: 10/27/22 service: No Current occupational status: disabled Cognitive needs: No Hearing needs: No Vision needs: Yes Physical Exam ED Vital Signs: Vital Signs - 24 hr 05/23/23 14:09 05/23/23 19:28 05/23/23 22:00 Temperature 97 F 97.8 F 98.0 F Pulse Rate 89 82 72 Respiratory Rate 22 H 16 16 Blood Pressure 139/89 119/88 135/74 Pulse Oximetry 96 98 98 Oxygen Delivery Method Room Air Room Air Room Air BMI result Body Mass Index 40.4 Const General: healthy appearing, comfortable, no acute distress, alert and awake Nutritional Appearance: well nourished Orientation/consciousness: patient oriented x3 HENMT Head: Yes normocephalic and Yes atraumatic Eyes Eyelids: Yes eyelids normal Conjunctivae: conjunctivae normal Sclerae: sclerae normal Corneas: corneas normal Pupils: Equal, round and reactive pupils present EOM: EOMs intact bilaterally Neck Neck: Yes full ROM Resp Effort & Inspection: normal respiratory effort, able to speak in complete sentences and not labored Skin General skin exam: no rashes or lesions noted and elasticity normal Neuro General: patient oriented x3 Cranial nerves: Yes Equal, round and reactive pupils present and Yes Bilaterally intact EOM present Cognition (Neuro): normal cognition Extrem Other: Moving all extremities well without any obvious deformities Course Course Course Narrative: RME: 62yo M w/PMHx DM on Metformin 1000mg BID, HTN, HLD, c/o hyperglycemia since recent ED visit. States POC was 425 at 7AM & 540 this afternoon. Denies missing doses of Metformin. Admits to polyuria & polydipsia VSS, NAD POC, EKG, Labs, UA ordered Full HPI, ROS and PE to be performed by primary ED provider. Reevaluation(s) Reevaluation #1: Patient's repeat glucose was 315, he still has fluid remaining but again there is no evidence of DKA. Will have the patient increase his p.o. his own to 30 mg daily while awaiting his PCP Time: 23:08 Medications Administered Discontinued Medications Generic Name Dose Route Start Last Admin Trade Name Freq PRN Reason Stop Dose Admin Sodium Chloride 1,000 mls @ 999 mls/hr 05/23/23 20:30 05/23/23 20:44 Ns IV 05/23/23 21:30 999 mls/hr .Q1H1M JOSUE Administration Medical Decision Making Medical Decision Making [facility] Narrative: 62-year-old male presents for evaluation of hyperglycemia. This is been ongoing issue for the patient, his sugar was 525 on arrival. He is not on insulin but will likely demand insulin soon. He has follow-up with doctor within the week. There is no evidence of DKA. Will treat the patient's blood sugar with IV fluids at this time Differential Diagnosis Hyperglycemia DKA [facility] Medication noncompliance Admission/Observation Consideration of admission/observation: Escalation of care including admission/observation considered Hyperglycemia Lab Data [facility] Lab Attestation statement: I reviewed the patient's lab results. (Patient's hematology within normal limits) Patient has a sodium of 129 that is approximately low normal when corrected for hyperglycemia. Patient's anion gap is normal, CO2 is normal, no evidence of DKA. Electrolytes are otherwise reassuring. The patient has a creatinine of 1.41 05/23/23 14:40 05/23/23 14:40 Labs: Lab Results 05/23/23 05/23/23 05/23/23 Range/Units 14:29 14:40 14:40 WBC 8.7 (4.8-10.8) X10*3/uL RBC 5.43 (4.60-5.80) X10*6/uL Hgb 15.4 (14.0-18.0) g/dl Hct 45.4 (42.0-52.0) % MCV 83.6 (80.0-98.0) fL MCH 28.4 (27.0-33.0) pg MCHC 33.9 (31.0-36.0) g/dl RDW 13.3 (11.0-16.0) % Plt Count 366 (160-400) X10*3/uL MPV 9.8 (9.4-12.4) fL Immature Gran % (Auto) 0.5 H (0.0-0.4) % Neut % (Auto) 60.1 (45-73) % Lymph % (Auto) 29.8 (20-40) % [place] % (Auto) 7.6 (2-11) % Eos % (Auto) 1.5 (0-4) % Baso % (Auto) 0.5 (0-2) % Lymph # (Auto) 2.6 (1.2-4.9) X10*3/uL [place] # (Auto) 0.7 (0.1-1.2) X10*3/uL Eos # (Auto) 0.1 (0.0-0.4) X10*3/uL Baso # (Auto) 0.0 (0.0-0.2) X10*3/uL Abs Immat Gran (auto) 0.04 H (0.00-0.03) X10*3/uL Absolute Neuts (auto) 5.2 (2.0-8.3) x10*3/uL Absolute Nucleated RBC 0.000 (0.0-0.012) X10*3/uL Nucleated RBC % (auto) 0.0 (0.0-0.2) /100WBC VBG pH (7.32-7.43) VBG pCO2 mmHg VBG pO2 mmHg VBG HCO3 (22-26) mmol/L VBG O2 Saturation % VBG Base Excess mmol/L Sodium 129 L (135-145) mmol/L Potassium 4.6 (3.3-5.1) mmol/L Chloride 94 L (96-108) mmol/L Carbon Dioxide 25 (22-29) mmol/L Anion Gap 15 (12-20) BUN 15 (9-16) mg/dL Creatinine 1.41 H (0.5-1.4) mg/dL Estim Creat Clear Calc 56.6 Estimated GFR 51 POC Glucose 525 H* (60-115) mg/dL Random Glucose 568 H* (60-115) mg/dL Calcium 10.7 H D (8.4-10.2) mg/dL Magnesium 1.9 (1.6-2.6) mg/dL Total Bilirubin 0.7 (0.0-1.0) mg/dL Direct Bilirubin 0.3 (0.0-0.5) mg/dL AST 27 (5-37) U/L ALT 29 (0-40) U/L Alkaline Phosphatase 104 (39-117) U/L Total Protein 7.5 (6.5-8.0) g/dL Albumin 4.2 (3.5-5.0) g/dL Urine Color Urine Appearance Urine pH (5.0-9.0) Ur Specific [place] (1.005-1.025) Urine Protein (Neg-Trace) mg/dL Urine Glucose (UA) (Negative) mg/dL Urine Ketones (Negative) mg/dL Urine Blood (Negative) Urine Nitrite (Negative) Ur Leukocyte Esterase (Negative) Urine RBC (0-2) /HPF Urine WBC (0-5) /HPF Ur Squamous Epith Cells (0-2) /HPF Urine Bacteria (None Seen) Hyaline Casts (0-2) /LPF 05/23/23 05/23/23 05/23/23 Range/Units 14:41 14:42 19:28 WBC (4.8-10.8) X10*3/uL RBC (4.60-5.80) X10*6/uL Hgb (14.0-18.0) g/dl Hct (42.0-52.0) % MCV (80.0-98.0) fL MCH (27.0-33.0) pg MCHC (31.0-36.0) g/dl RDW (11.0-16.0) % Plt Count (160-400) X10*3/uL MPV (9.4-12.4) fL Immature Gran % (Auto) (0.0-0.4) % Neut % (Auto) (45-73) % Lymph % (Auto) (20-40) % [place] % (Auto) (2-11) % Eos % (Auto) (0-4) % Baso % (Auto) (0-2) % Lymph # (Auto) (1.2-4.9) X10*3/uL [place] # (Auto) (0.1-1.2) X10*3/uL Eos # (Auto) (0.0-0.4) X10*3/uL Baso # (Auto) (0.0-0.2) X10*3/uL Abs Immat Gran (auto) (0.00-0.03) X10*3/uL Absolute Neuts (auto) (2.0-8.3) x10*3/uL Absolute Nucleated RBC (0.0-0.012) X10*3/uL Nucleated RBC % (auto) (0.0-0.2) /100WBC VBG pH 7.44 H (7.32-7.43) VBG pCO2 36 mmHg VBG pO2 54 mmHg VBG HCO3 25 (22-26) mmol/L VBG O2 Saturation 86.0 % VBG Base Excess 1.5 mmol/L Sodium (135-145) mmol/L Potassium (3.3-5.1) mmol/L Chloride (96-108) mmol/L Carbon Dioxide (22-29) mmol/L Anion Gap (12-20) BUN (9-16) mg/dL Creatinine (0.5-1.4) mg/dL Estim Creat Clear Calc Estimated GFR POC Glucose 369 H* (60-115) mg/dL Random Glucose (60-115) mg/dL Calcium (8.4-10.2) mg/dL Magnesium (1.6-2.6) mg/dL Total Bilirubin (0.0-1.0) mg/dL Direct Bilirubin (0.0-0.5) mg/dL AST (5-37) U/L ALT (0-40) U/L Alkaline Phosphatase (39-117) U/L Total Protein (6.5-8.0) g/dL Albumin (3.5-5.0) g/dL Urine Color Yellow Urine Appearance Clear Urine pH 5.5 (5.0-9.0) Ur Specific [place] >= 1.030 H (1.005-1.025) Urine Protein Negative (Neg-Trace) mg/dL Urine Glucose (UA) >=1000 H (Negative) mg/dL Urine Ketones Negative (Negative) mg/dL Urine Blood Negative (Negative) Urine Nitrite Negative (Negative) Ur Leukocyte Esterase Trace H (Negative) Urine RBC 0-2 (0-2) /HPF Urine WBC 11-20 H (0-5) /HPF Ur Squamous Epith Cells 0-2 (0-2) /HPF Urine Bacteria None Seen (None Seen) Hyaline Casts 0-2 (0-2) /LPF 05/23/23 Range/Units 22:41 WBC (4.8-10.8) X10*3/uL RBC (4.60-5.80) X10*6/uL Hgb (14.0-18.0) g/dl Hct (42.0-52.0) % MCV (80.0-98.0) fL MCH (27.0-33.0) pg MCHC (31.0-36.0) g/dl RDW (11.0-16.0) % Plt Count (160-400) X10*3/uL MPV (9.4-12.4) fL Immature Gran % (Auto) (0.0-0.4) % Neut % (Auto) (45-73) % Lymph % (Auto) (20-40) % [place] % (Auto) (2-11) % Eos % (Auto) (0-4) % Baso % (Auto) (0-2) % Lymph # (Auto) (1.2-4.9) X10*3/uL [place] # (Auto) (0.1-1.2) X10*3/uL Eos # (Auto) (0.0-0.4) X10*3/uL Baso # (Auto) (0.0-0.2) X10*3/uL Abs Immat Gran (auto) (0.00-0.03) X10*3/uL Absolute Neuts (auto) (2.0-8.3) x10*3/uL Absolute Nucleated RBC (0.0-0.012) X10*3/uL Nucleated RBC % (auto) (0.0-0.2) /100WBC VBG pH (7.32-7.43) VBG pCO2 mmHg VBG pO2 mmHg VBG HCO3 (22-26) mmol/L VBG O2 Saturation % VBG Base Excess mmol/L Sodium (135-145) mmol/L Potassium (3.3-5.1) mmol/L Chloride (96-108) mmol/L Carbon Dioxide (22-29) mmol/L Anion Gap (12-20) BUN (9-16) mg/dL Creatinine (0.5-1.4) mg/dL Estim Creat Clear Calc Estimated GFR POC Glucose 315 H (60-115) mg/dL Random Glucose (60-115) mg/dL Calcium (8.4-10.2) mg/dL Magnesium (1.6-2.6) mg/dL Total Bilirubin (0.0-1.0) mg/dL Direct Bilirubin (0.0-0.5) mg/dL AST (5-37) U/L ALT (0-40) U/L Alkaline Phosphatase (39-117) U/L Total Protein (6.5-8.0) g/dL Albumin (3.5-5.0) g/dL Urine Color Urine Appearance Urine pH (5.0-9.0) Ur Specific [place] (1.005-1.025) Urine Protein (Neg-Trace) mg/dL Urine Glucose (UA) (Negative) mg/dL Urine Ketones (Negative) mg/dL Urine Blood (Negative) Urine Nitrite (Negative) Ur Leukocyte Esterase (Negative) Urine RBC (0-2) /HPF Urine WBC (0-5) /HPF Ur Squamous Epith Cells (0-2) /HPF Urine Bacteria (None Seen) Hyaline Casts (0-2) /LPF Discharge Plan Discharge Clinical Impression: Acute hyperglycemia Patient Disposition: Home, Self-Care Instructions: Diabetic Hyperglycemia (ED) Additional Instructions: Continue taking your metformin as prescribed Increase your pioglitazone to 30 mg daily until you follow-up with your primary doctor Drink lots of water Return for new or worsening symptoms Prescriptions: New pioglitazone 15 mg tablet 15 mg PO DAILY Qty: 14 0RF No Action trazodone 50 mg tablet 50 mg PO BEDTIME PRN (Reason: sleep) 30 Days Qty: 30 1RF (DME) blood pressure monitor Kit See Rx Instructions .Route Qty: 1 0RF Rx Instructions: As directed pioglitazone 15 mg tablet 15 mg PO DAILY Qty: 90 1RF gabapentin 300 mg capsule 300 mg PO BEDTIME amlodipine 5 mg tablet 5 mg PO DAILY 90 Days Qty: 90 1RF Protocol: Hold for SBP< HOLD for SBP < : 90 losartan 100 mg tablet 100 mg PO DAILY 90 Days Qty: 90 1RF atorvastatin 40 mg tablet 40 mg PO BEDTIME 90 Days Qty: 90 1RF metformin 500 mg tablet 1,000 mg PO BID Qty: 360 3RF
[2023-05-23 14:09] VITALS: BP 139/89; PULSE 89; RESP 22; TEMP 36.1; O2SAT 96; BMI 40.4
--- NOTE | 2023-05-23 14:10 | ECG_ITS ---
Test Reason : HYPERGLYCEMIA Blood Pressure : / mmHG Vent. Rate : 089 BPM Atrial Rate : 089 BPM P-R Int : 150 ms QRS Dur : 086 ms QT Int : 342 ms P-R-T Axes : 028 -18 012 degrees QTc Int : 416 ms Normal sinus rhythm Minimal voltage criteria for LVH, may be normal variant ( R in aVL ) Borderline ECG When compared to the previous EKG of No significant changes seen Referred By: Lindsay Brewer Electronically Signed By:KIMBERLYN KOWALSKI MD
[2023-05-23 14:46] LABS: MANUAL DIFF FLAG NO
[2023-05-23 14:50] LABS: VBG Base Excess 1.5 mmol/L; VBG HCO3 25 mmol/L (22-26); VBG pCO2 36 mmHg; VBG pH 7.44 (7.32-7.43); VBG pO2 54 mmHg
[2023-05-23 14:50] LABS: Appearance Urine Clear; Color Urine Yellow; Glucose Urine UA >=1000 mg/dL (Negative); Leukocyte Esterase Urine Trace (Negative); Nitrite Urine Negative (Negative); PH 5.5 (5.0-9.0); Specific Gravity - Urine >= 1.030 (1.005-1.025); UMIC TRIGGER UACC YES; Urine Blood Negative (Negative); Urine Ketones Negative (Negative); Urine Protein Negative (Neg-Trace)
[2023-05-23 14:53] LABS: Basophils Percent Auto 0.5 % (0-2); Eosinophils Absolute Auto 0.1 X10*3/uL (0.0-0.4); Eosinophils Percent Auto 1.5 % (0-4); Hematocrit 45.4 % (42.0-52.0); Hemoglobin 15.4 g/dl (14.0-18.0); Imm Gran Abs Auto 0.04 X10*3/uL (0.00-0.03); Imm Gran Pct Auto 0.5 % (0.0-0.4); Lymphocytes Absolute Auto 2.6 X10*3/uL (1.2-4.9); Lymphocytes Percent Auto 29.8 % (20-40); Mean Corpuscular HGB Conc 33.9 g/dl (31.0-36.0); Mean Corpuscular Hemoglobin 28.4 pg (27.0-33.0); Mean Corpuscular Volume 83.6 fL (80.0-98.0); Mean Platelet Volume 9.8 fL (9.4-12.4); Monocytes Absolute Auto 0.7 X10*3/uL (0.1-1.2); Monocytes Percent Auto 7.6 % (2-11); Neutrophils Absolute Auto 5.2 x10*3/uL (2.0-8.3); Neutrophils Percent Auto 60.1 % (45-73); Platelet Count 366 X10*3/uL (160-400); Red Blood Count 5.43 X10*6/uL (4.60-5.80); Red Cell Distribution Width 13.3 % (11.0-16.0); White Blood Count 8.7 X10*3/uL (4.8-10.8)
[2023-05-23 14:55] LABS: Venous Blood Gas Refer to POC result
[2023-05-23 14:56] LABS: Bacteria Urine None Seen (None Seen); Hyaline Casts Urine 0-2 /LPF (0-2); RBC Urine 0-2 /HPF (0-2); Squamous Epithelial Cell Urine 0-2 /HPF (0-2); UACC Culture Trigger YES
[2023-05-23 15:21] LABS: Alanine Aminotransferase 29 U/L (0-40); Albumin Level 4.2 g/dL (3.5-5.0); Alkaline Phosphatase 104 U/L (39-117); Anion Gap 15 (12-20); Aspartate Amino Transferase 27 U/L (5-37); Bilirubin Direct 0.3 mg/dL (0.0-0.5); Bilirubin Total 0.7 mg/dL (0.0-1.0); Blood Urea Nitrogen 15 mg/dL (9-16); Calcium 10.7 mg/dL (8.4-10.2); Carbon Dioxide 25 mmol/L (22-29); Chloride 94 mmol/L (96-108); Creatinine Clr Calc Pharmacy 56.6; Estimated Glomerular Filt Rate 51; Glucose Random 568 mg/dL (60-115); Magnesium 1.9 mg/dL (1.6-2.6); Potassium 4.6 mmol/L (3.3-5.1); Sodium 129 mmol/L (135-145); Total Protein 7.5 g/dL (6.5-8.0)
[2023-05-23 15:26] LABS: Glucose, Whole Blood 525 mg/dL (60-115)
[2023-05-23 19:28] VITALS: BP 119/88; PULSE 82; RESP 16; TEMP 36.6; O2SAT 98
--- NOTE | 2023-05-23 19:29 | MHC.EDTECH ---
THIS PCT JUST ASSUMED CARE OF PATIENT ,VITALS SIGN TAKEN AND IS STABLE ,POINT OF CARE CHECK ,[facility] IS AWARE OF PATIENT RESULT OF 369.
[2023-05-23 19:56] LABS: Glucose, Whole Blood 369 mg/dL (60-115)
[2023-05-23] MEDS: 0.9 % Sodium Chloride 1,000 ML 999 ML IV (20:44)
[2023-05-23 22:00] VITALS: BP 135/74; PULSE 72; RESP 16; TEMP 36.7; O2SAT 98
[2023-05-23 22:47] LABS: Glucose, Whole Blood 315 mg/dL (60-115)
== END 2023-05-23 23:40 | disposition home or self-care (01) ==
PROVIDERS: Physician Assistant; Emergency Provider Emergency Medicine; PCP Internal Medicine
DX: E11.65 Type 2 diabetes mellitus with hyperglycemia (principal); I10 Essential (primary) hypertension; R94.31 Abnormal electrocardiogram [ECG] [EKG]; Z79.899 Other long term (current) drug therapy; Z79.84 Long term (current) use of oral hypoglycemic drugs
CPT/HCPCS: 36415; 80048; 80076; 81001; 82803; 82947; 83735; 85025; 87086; 87147; 93005; 96360; 96361; 99284

== ENCOUNTER → 2023-05-23 14:10 | Outpatient (BNV) | payer OTHER, SELFPAY | PROVIDERS: Emergency Provider Emergency Medicine; PCP Internal Medicine; Visit Provider Internal Medicine Cardiovascular Disease | DX: R73.9 Hyperglycemia, unspecified (principal) | CPT/HCPCS: 93010 ==

== ENCOUNTER 2023-05-28 07:38 | Outpatient (AMB) | payer MEDICARE, SELFPAY ==
--- NOTE | 2023-05-28 07:48 | MHC.PC.OV ---
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 Accompanied by: Self / Same As Patient Allergies shellfish derived [SHELLFISH DERIVED] Allergy (Mild, Verified 05/28/23 08:11) SWELLING;DIFF BREATHING shrimp [SHRIMP] Allergy (Mild, Verified 05/28/23 08:11) swelling,difficulty breathing Medication List - Last Reconciled 05/28/23 by Michelle Villavicencio MD amlodipine 5 mg See Protocol PO DAILY 90 days blood pressure monitor As directed gabapentin 300 mg PO BEDTIME losartan 100 mg PO DAILY 90 days metformin 1,000 mg (2 x 500 mg) PO BID pioglitazone 30 mg PO DAILY simvastatin 40 mg PO BEDTIME Tobacco use date assessed: 03/13/23 Dental Screening Dental Screen Date: 05/28/23 Did you have a dental visit in the last 12 months?: No Did you have a dental problem in the last 6 months where you did not have access to dental care?: No Was dental information given to patient?: No HPI HPI Comments History of Present Illness Details This is a 62-year-old male with diabetes mellitus type 2, hypertension, hyperlipidemia and morbid obesity that comes today for follow-up on recent labs. Has chronic kidney disease stage 3 and hyponatremia that has been follow by Nephrology. Also has hypercalcemia and labs will be ordered to rule out hyperparathyroidism. A1c elevated and blood glucose not control and I will start him on insulin once a day. Will also be referred to endocrinology. Blood pressure stable. On statins for hyperlipidemia and his LDL goal should be less than 70. He is morbidly obese with a BMI of 40.1 and declines weight loss surgery. Was advised to diet and exercise as tolerated to reach BMI goal less than 30. [facility] Medical History Diabetes mellitus Essential hypertension Hypovitaminosis D Morbid obesity Neuropathy Pure hypercholesterolemia Surgical History History of arthroscopy of right knee Nephrolithiasis Family History Father Diabetes Hypertension Mother Diabetes Hypertension Sister Lung cancer Family/Other Diabetes Hypertension Hypercholesterolemia Social History Household Members: None Housing: Condominium Do you presently have visiting nurse or other home services: No Alcohol intake: never Patient Tobacco Use Status: Former Tobacco user Tobacco use type: Cigarette e-Cigarette/Vaping Use: Never Used Second Hand Smoke Exposure: No Advance Directives Date on File: 10/27/22 service: No Current occupational status: disabled Cognitive needs: No Hearing needs: No Vision needs: Yes Questionnaire Thrive Questionnaire Date Thrive assessed: 01/09/23 MIKAELA-7 AMB Questionnaire MIKAELA-7 Date MIKAELA - 7 assessed: 03/13/23 Source: Developed by Drs. Aly Acosta, Micheline Lynch, John Senior and colleagues, with an educational julianna from [employer]. Review of Systems Const All systems reviewed & are unremarkable except as noted in HPI and below Eyes Reports no additional complaints, Denies change in vision and Denies other visual disturbances Card Denies chest pain at rest, Denies chest pain with activity, Denies edema, Denies irregular heart rhythm, Denies claudication, Denies dyspnea, Denies dyspnea on exertion, Denies orthopnea, Denies paroxysmal nocturnal dyspnea and Denies slow heart rate Resp Denies cough, Denies dyspnea and Denies dyspnea on exertion GI Denies abdominal pain, Denies change in bowel habits, Denies excessive flatus, Denies nausea and Denies vomiting Denies urinary hesitancy, Denies urinary incontinence and Denies urinary urgency Musc Denies abnormal gait, Denies atrophy, Denies deformity and Denies limited range of motion Skin/Breast Denies bleeding lesions, Denies changing lesions and Denies rash Neuro Denies abnormal gait and Denies lack of coordination Physical exam (Primary Care) Vital Signs: Last Vital Signs BP 112/78 05/28/23 07:49 BMI result Body Mass Index 40.1 Tobacco/Smoking Status: Tobacco use Status Tobacco use date assessed 03/13/23 05/28/23 07:54 Patient Tobacco Use Status Former Tobacco user 05/28/23 07:54 Tobacco use type Cigarette 05/28/23 07:54 e-Cigarette/Vaping Use Never Used 05/28/23 07:54 Thrive Assessment: Date of Thrive Assessment Date Thrive assessed 01/09/23 05/28/23 07:54 Eyes General: appearance normal, both eyes and all related structures Eyelids: Yes eyelids normal Conjunctivae: conjunctivae normal Neck Neck: Yes normal visual inspection and Yes supple Resp Effort & Inspection: normal respiratory effort Auscultation: clear to auscultation bilaterally Cardio Jugular venous distension: no JVD Rate: regular rate Rhythm: regular rhythm Heart sounds: S1 normal heart sound present and S2 normal heart sound present Skin General skin exam: no rashes or lesions noted Extrem General: Yes full ROM Assessment and Plan Assessment & Plan (1) Diabetes mellitus: Code(s): E11.9 - Type 2 diabetes mellitus without complications Qualifiers: Diabetes mellitus type: type 2 Diabetes mellitus senior care insulin use: without senior care use Diabetes mellitus complication status: with neurologic complications Diabetes mellitus complication detail: with other neurological complication Qualified Code(s): E11.49 - Type 2 diabetes mellitus with other diabetic neurological complication Plan: Continue metformin. Discontinue Actos. Start insulin. A1c goal is equal or less than 7%. Referred to Endocrinology. (2) CKD (chronic kidney disease) stage 3, GFR 30-59 ml/min: Code(s): N18.30 - Chronic kidney disease, stage 3 unspecified Plan: Avoid NSAIDs. Blood pressure goal is equal or less than 130/80. Follow-up with nephrology. (3) Hypercalcemia: Code(s): E83.52 - Hypercalcemia Plan: Repeat ionized calcium, PTH intact and urinary calcium as well as albumin. Referred to endocrinology. (4) Morbid obesity: Code(s): E66.01 - Morbid (severe) obesity due to excess calories Plan: Start diet and exercise. BMI goal is less than 30. (5) Hyperlipidemia LDL goal <70: Code(s): E78.5 - Hyperlipidemia, unspecified Plan: Continue statins. Repeat lipid panel. LDL goal is less than 70. (6) Essential hypertension: Code(s): I10 - Essential (primary) hypertension Plan: Continue amlodipine and losartan. Blood pressure goal is equal or less than 130/80. Orders: Orders PTHI Today E83.52 - Hypercalcemia Calcium, Ionized Today E83.52 - Hypercalcemia Calcium, Random Urine Today E11.49 - Type 2 diabetes mellitus with other diabetic neurological complication Albumin Level Today E11.49 - Type 2 diabetes mellitus with other diabetic neurological complication Referrals Endocrinology Referral E11.9 - Type 2 diabetes mellitus without complications, E83.52 - Hypercalcemia Medications: New insulin degludec (Tresiba FlexTouch U-100 insulin) 10 units (0.1 mL) subcut DAILY 30 days 3 mL 2RF E11.9 - Type 2 diabetes mellitus without complications pen needle, diabetic (Comfort EZ Pen [place]) Use 1 pen needle once a day 100 ea 1RF E11.9 - Type 2 diabetes mellitus without complications Coding Level of Care Code Est Pt Level 4 (17315) Diagnoses Diabetes mellitus E11.49 Diabetes mellitus type: type 2 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
[2023-05-28 07:49] VITALS: BP 112/78; BMI 40.1
== END 2023-05-28 08:24 | disposition home or self-care (01) ==
PROVIDERS: Visit Provider Internal Medicine
DX: E11.49 Type 2 diabetes mellitus with other diabetic neurological complication (principal); I12.9 Hypertensive chronic kidney disease with stage 1 through stage 4 chronic kidney disease, or unspecified chronic kidney disease; N18.30 Chronic kidney disease, stage 3 unspecified; E83.52 Hypercalcemia; E66.01 Morbid (severe) obesity due to excess calories; E78.5 Hyperlipidemia, unspecified
CPT/HCPCS: 99214

== ENCOUNTER 2023-06-03 07:57 | Outpatient (REF) | payer OTHER, SELFPAY ==
[2023-06-03 09:20] LABS: Albumin Level 4.3 g/dL (3.5-5.0)
[2023-06-04 20:49] LABS: Calcium, Random Urine 4.7 mg/dL
[2023-06-05 19:09] LABS: Calcium (PTHI) 10.5 mg/dL (8.6-10.3); PTHI 46 pg/mL (16-77)
[2023-06-06 14:39] LABS: Calcium, Ionized 5.4 mg/dL (4.7-5.5)
== END 2023-06-03 07:58 | disposition home or self-care (01) ==
LOC: HO.LAB 07:57
PROVIDERS: PCP Internal Medicine; Visit Provider Internal Medicine
DX: E83.52 Hypercalcemia (principal); E11.49 Type 2 diabetes mellitus with other diabetic neurological complication
CPT/HCPCS: 36415; 82040; 82310; 82330; 83970

== ENCOUNTER 2023-07-02 14:32 | Outpatient (AMB) | payer OTHER, SELFPAY ==
[2023-07-02 14:34] VITALS: BP 136/86; PULSE 93; O2SAT 98; BMI 40.4
--- NOTE | 2023-07-02 14:34 | A.OFFPC_ITS ---
Vital Signs 07/02/23 14:34 Height 5 ft 2 in Weight 221 lb BMI 40.4 BP 136/86 Blood Pressure Location Lt brachial Position Sitting Pulse 93 Pulse Source Pulse Oximeter Temp Source Skin Pulse Oximetry (%) 98 Oxygen Delivery Method Room Air Intake Visit Reasons: pt fell and hurt his right knee Intake Note: pt states fall with right knee injury that occurred yesterday Sand Caster Required: No Allergies shellfish derived [SHELLFISH DERIVED] Allergy (Mild, Verified 07/02/23 14:45) SWELLING;DIFF BREATHING shrimp [SHRIMP] Allergy (Mild, Verified 07/02/23 14:45) swelling,difficulty breathing Medication List - Last Reconciled 07/02/23 by J CARLOS Walker amlodipine 5 mg See Protocol PO DAILY 90 days blood pressure monitor As directed blood sugar diagnostic ([employer] ([employer]uch Ultra Test strips) Use 1 test strip twice a day blood-glucose meter ([employer] ([employer]uch Ultra2 Meter) As directed gabapentin 300 mg PO DAILY 90 days insulin degludec (Tresiba FlexTouch U-200 insulin) 20 units (0.1 mL) subcut DAILY 30 days lancets ([employer] UltraSoft 2 Lancet) Use 1 lancet twice a day losartan 100 mg PO DAILY 90 days metformin 1,000 mg (2 x 500 mg) PO BID pen needle, diabetic (Comfort EZ Pen [place]) Use 1 pen needle once a day simvastatin 40 mg PO BEDTIME Tobacco use date assessed: 07/02/23 Dental Screening Dental Screen Date: 07/02/23 HPI pt fell and hurt his right knee HPI Details Patient is a 62-year-old male who presents today for the same day visit due to a fall yesterday and he hurt his right knee. Patient of Dr. Turner. Patient reports that he slipped on water yesterday in a store and his right leg when straight and he hit his right knee on concrete, his left leg went backwards and he pulled muscle in his back thigh. He denies hitting his head or loss of consciousness. Reports right knee pain with ambulation, no much pain when he is at rest. Reports left posterior thigh pain when he walks or changes position. No numbness or tingling. Reports surgery on right knee in the past. Reports taking Tylenol 1000 mg with some improvement in pain. He is here for an evaluation. Also reports left great toe mild ache. [facility] Medical History Diabetes mellitus Essential hypertension Hypovitaminosis D Morbid obesity Neuropathy Pure hypercholesterolemia Surgical History History of arthroscopy of right knee Nephrolithiasis Family History Father Diabetes Hypertension Mother Diabetes Hypertension Sister Lung cancer Family/Other Diabetes Hypertension Hypercholesterolemia Social History Household Members: None [facility] Do you presently have visiting nurse or other home services: No Alcohol intake: never Patient Tobacco Use Status: Former Tobacco user Tobacco use type: Cigarette e-Cigarette/Vaping Use: Never Used Second Hand Smoke Exposure: No Advance Directives Date on File: 10/27/22 service: No Current occupational status: disabled Cognitive needs: No Hearing needs: No Vision needs: Yes Questionnaire PHQ-9 Over the last 2 weeks, how often have you been bothered by any of the following problems? 1. Little interest or pleasure in doing things: not at all 2. Feeling down, depressed, or hopeless: not at all 3. Trouble falling or staying asleep, or sleeping too much: several days 4. Feeling tired or having little energy: not at all 5. Poor appetite or overeating: not at all 6. Feeling bad about yourself - or that you are a failure or have let yourself or your family down: not at all 7. Trouble concentrating on things, such as reading the newspaper or watching television: not at all 8. Moving or speaking so slowly that other people could have noticed. Or the opposite - being so fidgety or restless that you have been moving around a lot more than usual: not at all 9. Thoughts that you would be better off or of hurting yourself in some way: not at all Total score: 1 Depression Screening Interpretation: Negative 80752 - PHQ-9 Billing: Yes Source: Developed by Drs. Aly Acosta, Micheline Lynch, John Senior and colleagues, with an educational julianna from [employer]. Thrive Questionnaire Date Thrive assessed: 01/09/23 AUDIT C Alcohol Use Questionnaire (AUDIT-C) 1. How often do you have a drink containing alcohol?: Never Total Score: 0 Score Reviewed/Action Taken: No MIKAELA-7 AMB Questionnaire MIKAELA-7 Date MIKAELA - 7 assessed: 03/13/23 Source: Developed by Drs. Aly Acosta, Micheline Lynch, John Senior and colleagues, with an educational julianna from [employer]. Review of Systems Const Denies body aches, Denies chills, Denies fever(s) and Denies headache(s) Eyes Denies change in vision ENT Denies dizziness, Denies otalgia, Denies headache(s), Denies nasal discharge, Denies sinus pain and Denies sore throat Card Denies chest pain, Denies edema, Denies lightheadedness and Denies dyspnea Resp Denies cough, Denies dyspnea and Denies wheezing GI Denies abdominal pain Denies dysuria Musc Reports as per HPI, Denies myalgias, Reports arthralgias, Denies numbness and Denies tingling Skin/Breast Denies lesions and Denies rash Neuro Denies dizziness, Denies headache(s), Denies numbness and Denies tingling Aller/Immun Denies wheezing Physical exam (Primary Care) Vital Signs: Last Vital Signs Pulse 93 07/02/23 14:34 BP 136/86 07/02/23 14:34 Pulse Ox 98 07/02/23 14:34 Oxygen Delivery Method Room Air 07/02/23 14:34 BMI result Body Mass Index 40.4 Tobacco/Smoking Status: Tobacco use Status Tobacco use date assessed 07/02/23 07/02/23 14:36 Patient Tobacco Use Status Former Tobacco user 07/02/23 14:36 Tobacco use type Cigarette 07/02/23 14:36 e-Cigarette/Vaping Use Never Used 07/02/23 14:36 PHQ-9: PHQ-9 Score PHQ-9: Total score 1 07/02/23 14:49 Depression Screening Interpretation: Negative Thrive Assessment: Date of Thrive Assessment Date Thrive assessed 01/09/23 07/02/23 14:36 Const General: cooperative and no acute distress Orientation/consciousness: patient oriented x3 HENMT Head: Yes normocephalic and Yes atraumatic Mouth: oropharynx normal and moist mucous membranes Throat: Yes posterior oropharynx normal Eyes General: appearance normal, both eyes and all related structures Neck Neck: Yes normal visual inspection and Yes full ROM Resp Effort & Inspection: normal respiratory effort and able to speak in complete sentences Auscultation: clear to auscultation bilaterally, no crackles, no rales, no rhonchi and no wheezes Cardio Rate: regular rate Rhythm: regular rhythm Heart sounds: S1 normal heart sound present and S2 normal heart sound present GI Auscultation: normal bowel sounds Skin General skin exam: no rashes or lesions noted Neuro General: patient oriented x3 Gait exam (Neuro): Normal gait present Extrem Other: Left posterior thigh normal to inspection, nontender General: Yes full ROM and No edema Right lower extremity: knee Details: normal to inspection (Very mild erythema laterally), tenderness (Anterior, lateral, medial) and normal ROM; no swelling, no lacerations, no ecchymosis, no crepitus, no deformity and no unusual warmth Assessment and Plan Assessment & Plan (1) Right knee pain: Code(s): M25.561 - Pain in right knee Plan: Will obtain right knee x-ray Encouraged patient to use ice packs p.r.n. Patient is to continue Tylenol 1000 mg every 8 hours as needed Will provide patient with diclofenac cream and lidocaine patch p.r.n.. Will notify of x-ray results Patient declined physical therapy Patient agreed the plan Medications: New diclofenac sodium 1% (Arthritis Pain (diclofenac)) 2 grams topical QID PRN 100 grams 0RF pain M25.561 - Pain in right knee lidocaine 4% (Aspercreme (lidocaine)) 1 patch topical DAILY PRN 30 ea 0RF pain M25.561 - Pain in right knee Coding Level of Care Code Est Pt Level 3 (87012) Diagnoses Right knee pain M25.561
== END 2023-07-02 15:01 | disposition home or self-care (01) ==
PROVIDERS: PCP Internal Medicine; Visit Provider Nurse Practitioner Family
DX: M25.561 Pain in right knee (principal)
CPT/HCPCS: 99213

== ENCOUNTER 2023-07-02 15:02 | Outpatient (REF) | payer OTHER, SELFPAY ==
--- NOTE | ~2023-07-02 | XR_ITS ---
EXAMINATION: XR KNEE, RIGHT CLINICAL INFORMATION: Right knee pain COMPARISON: 09/25/2018 TECHNIQUE: Four views of the right knee. FINDINGS: The patient is again noted to have undergone medial tibiofemoral hemiarthroplasty. The prosthetic components are unchanged in alignment and position with no evidence of periprosthetic lucency. The lateral tibiofemoral articular space is preserved. Mild degenerative changes of the lateral patellofemoral joint are noted. There is no significant knee joint effusion. XR/XR knee RT 4V IMPRESSION: 1. No significant change since 09/25/2028, including medial tibiofemoral arthroplasty and mild lateral patellofemoral osteoarthrosis.
== END 2023-07-02 15:03 | disposition home or self-care (01) ==
LOC: HO.XRAY 15:02
PROVIDERS: PCP Internal Medicine; Visit Provider Nurse Practitioner Family
DX: M25.561 Pain in right knee (principal)
CPT/HCPCS: 73564

== ENCOUNTER 2023-08-21 10:00 | Outpatient (RCR) | payer OTHER, SELFPAY ==
--- NOTE | 2023-08-12 09:46 | MHC.PT.EP ---
[facility] [place] Office [place] Office [place] Office [address] Rosie Schofield [address] [phone] F: [phone] F: [phone] F: [phone] F: [phone] Physical Therapy Plan of Care Date of Evaluation: 08/12/23 Date of Surgery: 4-5 years ago Diagnosis: right knee pain (RL) Assessment: pt is a 63 y/o male presenting to physical therapy w/ referring diagnosis of right knee pain. Impairments include pain, decreased range of motion, decreased strength, impaired functional mobility, impaired postural awareness, and altered ambulation mechanics. pt is a good candidate for skilled PT due to age, potential remediation of impairments, typical disease/condition progression and prognosis, comorbidities, and motivation. pt would benefit from skilled PT intervention to provide a tailored strengthening and stretching exercise program, functional training, gait training, postural re-training, neuromuscular re-education, modalities as needed for pain, equipment safety demonstration. Frequency and Duration: The patient will be seen 2x/wk for 4 wks Short Term Goals: pt will be I w/ HEP to promote self-management of condition. pt will improve L knee flexion by 10 degrees to promote ease in sitting tolerance. Scalemaker Goals: pt will report a statistically significant improvement in self-reported outcome measure, LEFI, to promote return to PLOF. pt will demonstrate appropriate knee AROM to tolerate descending stairs w/ reciprocal pattern using handrail. Treatment Plan: Modalities to reduce pain, spasms and effusion. Manual therapy to restore motion and function. Therapeutic exercise to improve strength and flexibility. Neuromuscular re-education for posture and balance. Therapeutic activities to return to functional activities of daily living. Electronically signed by: Bridgette Wan PT, DPT Please sign and return to therapist. Thank you for your referral.
--- NOTE | 2023-08-25 12:22 | MHC.PT.DC ---
[facility] [place] Office [place] Office [place] Office [address] Rosie Schofield [address] [phone] F: [phone] F: [phone] F: [phone] F: [phone] Physical Therapy Discharge Report Diagnosis: right knee pain (RL) Date of Surgery: 4-5 years ago Date of Evaluation: 08/12/23 Date of Discharge: 08/25/23 Treatments to Date: 4 Cancellations to Date: 5 No Shows to Date: 0 Discharge Status: Improved Function Independent with HEP Discharge Summary: The patient overall has resolved all complaints with exception of stiffness first thing in the morning. He went from 80* of knee flexion to full range of motion in two weeks. He is independent with his exercise program and is discharged from this physical therapy plan of care. Electronically signed by: Bridgette Wan PT, DPT Please sign and return to therapist. Thank you for your referral.
== END 2023-08-25 12:22 | disposition home or self-care (01) ==
LOC: HO.PT 10:00
PROVIDERS: PCP Internal Medicine; Visit Provider Internal Medicine
DX: M25.561 Pain in right knee (principal)
CPT/HCPCS: 97110; 97162

== ENCOUNTER 2023-09-16 12:37 | Outpatient (REF) | payer OTHER, SELFPAY ==
[2023-09-16 13:55] LABS: Appearance Urine Clear; Color Urine Yellow; Glucose Urine UA >=1000 mg/dL (Negative); Leukocyte Esterase Urine Negative (Negative); Nitrite Urine Negative (Negative); Specific Gravity - Urine 1.025 (1.005-1.025); UMIC TRIGGER UA YES; Urine Blood Negative (Negative); Urine Ketones Negative (Negative); Urine Protein 30 (1+) mg/dL (Neg-Trace)
[2023-09-16 14:01] LABS: Bacteria Urine None Seen (None Seen); Hyaline Casts Urine 0-2 /LPF (0-2); RBC Urine 0-2 /HPF (0-2); Squamous Epithelial Cell Urine 0-2 /HPF (0-2); WBC Urine 0-5 /HPF (0-5)
[2023-09-16 14:07] LABS: Anion Gap 14 (12-20); Blood Urea Nitrogen 16 mg/dL (9-16); Calcium 10.1 mg/dL (8.4-10.2); Carbon Dioxide 27 mmol/L (22-29); Chloride 106 mmol/L (96-108); Estimated Glomerular Filt Rate > 60; Potassium 3.9 mmol/L (3.3-5.1); Sodium 143 mmol/L (135-145)
[2023-09-16 14:37] LABS: Microalbum/Creatinine Ratio Ur 137.7 ug/mg cr (<30); Protein/Creatinine Ratio, Ur 0.23 (<0.2); Total Protein Urine Random 34 mg/dL (<12)
== END 2023-09-16 12:38 | disposition home or self-care (01) ==
LOC: HO.LAB 12:37
PROVIDERS: PCP Internal Medicine; Visit Provider Internal Medicine Nephrology
DX: I12.9 Hypertensive chronic kidney disease with stage 1 through stage 4 chronic kidney disease, or unspecified chronic kidney disease (principal); N18.31 Chronic kidney disease, stage 3a; N17.9 Acute kidney failure, unspecified
CPT/HCPCS: 36415; 80051; 81001; 82043; 82310; 82565; 82570; 84156; 84520

== ENCOUNTER 2023-10-08 07:53 | Outpatient (AMB) | payer OTHER, SELFPAY ==
[2023-10-08 08:07] VITALS: BP 128/82; PULSE 86; O2SAT 96; BMI 42.2
--- NOTE | 2023-10-08 08:07 | MHC.PC.OV ---
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 Required: No Accompanied by: Self / Same As Patient Allergies shellfish derived [SHELLFISH DERIVED] Allergy (Mild, Verified 10/08/23 08:23) SWELLING;DIFF BREATHING shrimp [SHRIMP] Allergy (Mild, Verified 10/08/23 08:23) swelling,difficulty breathing Medication List - Last Reconciled 10/08/23 by Michelle Villavicencio MD amlodipine 5 mg See Protocol PO DAILY 90 days blood pressure monitor As directed blood sugar diagnostic ([employer] Ultra Test strips) Use 1 test strip twice a day blood-glucose meter ([employer] Ultra2 Meter) As directed diclofenac sodium 1% (Arthritis Pain (diclofenac)) 2 grams topical QID PRN gabapentin 300 mg PO DAILY 90 days insulin degludec (Tresiba FlexTouch U-200 insulin) 20 units (0.1 mL) subcut DAILY 30 days lancets ([employer] UltraSoft 2 Lancet) Use 1 lancet twice a day lidocaine 4% (Aspercreme (lidocaine)) 1 patch topical DAILY PRN losartan 100 mg PO DAILY 90 days metformin 1,000 mg (2 x 500 mg) PO BID pen needle, diabetic (Comfort EZ Pen [place]) Use 1 pen needle once a day simvastatin 40 mg PO BEDTIME Tobacco use date assessed: 07/02/23 Dental Screening Dental Screen Date: 10/08/23 Did you have a dental visit in the last 12 months?: Yes Did you have a dental problem in the last 6 months where you did not have access to dental care?: No Was dental information given to patient?: Patient has dentist HPI HPI Comments History of Present Illness Details This is a 63-year-old male with diabetes mellitus type 2 on long-term current use of insulin, hypertension, hyperlipidemia and morbid obesity that comes today for follow-up on his conditions. As per patient A1c has improved and it was 7.8% in 09/09/2023 at Endocrinology in [facility]. I will add Trulicity to his regimen. Blood pressure stable. Lipid panel will be order and his LDL goal should be less than 70. Is morbidly obese with a BMI of 42.3 and was advised to diet and exercise to reach BMI goal less than 30. [facility] Medical History (Updated 10/08/23 @ 08:34 by Michelle Villavicencio MD) Morbid obesity Neuropathy Essential hypertension Hypovitaminosis D Pure hypercholesterolemia Diabetes mellitus Surgical History Nephrolithiasis History of arthroscopy of right knee Family History Father Diabetes Hypertension Mother Diabetes Hypertension Sister Lung cancer Family/Other Diabetes Hypertension Hypercholesterolemia Social History Household Members: None Housing: Condominium Do you presently have visiting nurse or other home services: No Alcohol intake: never Patient Tobacco Use Status: Former Tobacco user Tobacco use type: Cigarette e-Cigarette/Vaping Use: Never Used Second Hand Smoke Exposure: No Advance Directives Date on File: 10/27/22 service: No Current occupational status: disabled Cognitive needs: No Hearing needs: No Vision needs: Yes Questionnaire Thrive Questionnaire Date Thrive assessed: 01/09/23 MIKAELA-7 AMB Questionnaire MIKAELA-7 Date MIKAELA - 7 assessed: 03/13/23 Source: Developed by Drs. Aly Acosta, Micheline Lynch, John Senior and colleagues, with an educational julianna from [employer]. Review of Systems Const All systems reviewed & are unremarkable except as noted in HPI and below Eyes Reports no additional complaints, Denies change in vision and Denies other visual disturbances Card Denies chest pain at rest, Denies chest pain with activity, Denies edema, Denies irregular heart rhythm, Denies claudication, Denies dyspnea, Denies dyspnea on exertion, Denies orthopnea, Denies paroxysmal nocturnal dyspnea and Denies slow heart rate Resp Denies cough, Denies dyspnea and Denies dyspnea on exertion GI Denies abdominal pain, Denies change in bowel habits, Denies excessive flatus, Denies nausea and Denies vomiting Denies urinary hesitancy, Denies urinary incontinence and Denies urinary urgency Musc Denies abnormal gait, Denies atrophy, Denies deformity and Denies limited range of motion Skin/Breast Denies bleeding lesions, Denies changing lesions and Denies rash Neuro Denies abnormal gait and Denies lack of coordination Physical exam (Primary Care) Vital Signs: Last Vital Signs Pulse 86 10/08/23 08:07 BP 128/82 10/08/23 08:07 Pulse Ox 96 10/08/23 08:07 Oxygen Delivery Method Room Air 10/08/23 08:07 BMI result Body Mass Index 42.2 Tobacco/Smoking Status: Tobacco use Status Tobacco use date assessed 07/02/23 10/08/23 08:10 Patient Tobacco Use Status Former Tobacco user 10/08/23 08:10 Tobacco use type Cigarette 10/08/23 08:10 e-Cigarette/Vaping Use Never Used 10/08/23 08:10 Thrive Assessment: Date of Thrive Assessment Date Thrive assessed 01/09/23 10/08/23 08:10 Eyes General: appearance normal, both eyes and all related structures Eyelids: Yes eyelids normal Conjunctivae: conjunctivae normal Neck Neck: Yes normal visual inspection and Yes supple Resp Effort & Inspection: normal respiratory effort Auscultation: clear to auscultation bilaterally Cardio Jugular venous distension: no JVD Rate: regular rate Rhythm: regular rhythm Heart sounds: S1 normal heart sound present and S2 normal heart sound present Extrem General: Yes full ROM Assessment and Plan Assessment & Plan (1) Diabetes mellitus: Comment: last hgbA1c 09/09/23 was 7.8 Code(s): E11.9 - Type 2 diabetes mellitus without complications Qualifiers: Diabetes mellitus complication detail: with other neurological complication Diabetes mellitus complication status: with neurologic complications Diabetes mellitus shelter insulin use: without ferry terminal supervisor use Diabetes mellitus type: type 2 Qualified Code(s): E11.49 - Type 2 diabetes mellitus with other diabetic neurological complication Plan: Continue insulin and metformin. Start Trulicity. Follow-up with endocrinology. A1c goal is equal or less than 7%. (2) Essential hypertension: Code(s): I10 - Essential (primary) hypertension Plan: Continue amlodipine and losartan. Blood pressure goal is equal or less than 130/80. (3) Hyperlipidemia LDL goal <70: Code(s): E78.5 - Hyperlipidemia, unspecified Plan: Continue statins. LDL goal is less than 70. (4) Morbid obesity: Code(s): E66.01 - Morbid (severe) obesity due to excess calories Plan: Patient declines weight loss surgery. Start diet and exercise. BMI goal is less than 30. Orders: Orders Comprehensive [place]. Panel Fast Today E11.49 - Type 2 diabetes mellitus with other diabetic neurological complication Lipid Panel Today E78.5 - Hyperlipidemia, unspecified Medications: New dulaglutide (Trulicity) 0.75 mg (0.5 mL) subcut QWEEK 2.5 mL 6RF 30 days E11.9 - Type 2 diabetes mellitus without complications Coding Level of Care Code Est Pt Level 4 (67210) Diagnoses Type 2 diabetes mellitus with other neurologic complication, without long-term current use of insulin E11.49 Diabetes mellitus complication detail: with other neurological complication Diabetes mellitus complication status: with neurologic complications Diabetes mellitus ferry terminal supervisor insulin use: without ferry terminal supervisor use Diabetes mellitus type: type 2 Essential hypertension I10 Hyperlipidemia LDL goal <70 E78.5 Morbid obesity E66.01 Time Spent (min) 24
== END 2023-10-08 08:38 | disposition home or self-care (01) ==
PROVIDERS: PCP Internal Medicine; Visit Provider Internal Medicine
DX: E11.49 Type 2 diabetes mellitus with other diabetic neurological complication (principal); E66.01 Morbid (severe) obesity due to excess calories; Z68.41 Body mass index [BMI] 40.0-44.9, adult; I10 Essential (primary) hypertension; E78.5 Hyperlipidemia, unspecified
CPT/HCPCS: 99214

== ENCOUNTER 2023-12-29 07:13 | Outpatient (REF) | payer OTHER, SELFPAY ==
[2023-12-29 08:27] LABS: Alanine Aminotransferase 13 U/L (0-40); Albumin Level 4.3 g/dL (3.5-5.0); Alkaline Phosphatase 89 U/L (39-117); Anion Gap 12 (12-20); Aspartate Amino Transferase 13 U/L (5-37); Bilirubin Total 0.5 mg/dL (0.0-1.0); Blood Urea Nitrogen 19 mg/dL (9-16); Carbon Dioxide 28 mmol/L (22-29); Chloride 106 mmol/L (96-108); Cholesterol 110 mg/dL (<200); Estimated Glomerular Filt Rate > 60; Glucose Fasting 121 mg/dL (60-99); HDL Cholesterol 32 mg/dL (>40); LDL Cholesterol Calculated 51 mg/dL (<100); Potassium 4.2 mmol/L (3.3-5.1); Sodium 142 mmol/L (135-145); Total Protein 7.5 g/dL (6.5-8.0); Triglycerides 138 mg/dL (<150)
== END 2023-12-29 07:14 | disposition home or self-care (01) ==
LOC: HO.LAB 07:13
PROVIDERS: PCP Internal Medicine; Visit Provider Internal Medicine
DX: E11.49 Type 2 diabetes mellitus with other diabetic neurological complication (principal); E78.5 Hyperlipidemia, unspecified
CPT/HCPCS: 36415; 80053; 80061

== ENCOUNTER 2024-02-10 07:33 | Outpatient (AMB) | payer OTHER, SELFPAY ==
--- NOTE | 2024-02-10 07:50 | MHC.PC.OV ---
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 Body Required: No Accompanied by: Self / Same As Patient Allergies shellfish derived [SHELLFISH DERIVED] Allergy (Mild, Verified 02/10/24 08:14) SWELLING;DIFF BREATHING shrimp [SHRIMP] Allergy (Mild, Verified 02/10/24 08:14) swelling,difficulty breathing Medication List - Last Reconciled 02/10/24 by Michelle Villavicencio MD amlodipine 5 mg See Protocol PO DAILY 90 days blood pressure monitor As directed blood sugar diagnostic (OneTouch Ultra Test strips) Use 1 test strip twice a day blood-glucose meter ([employer](SPG)uch Ultra2 Meter) As directed dulaglutide (Trulicity) 0.75 mg (0.5 mL) subcut QWEEK 30 days gabapentin 300 mg PO DAILY 90 days insulin degludec (Tresiba FlexTouch U-200 insulin) 28 units (0.14 mL) subcut DAILY 30 days lancets ([employer](SPG)uch UltraSoft 2 Lancet) Use 1 lancet twice a day losartan 100 mg PO DAILY 90 days metformin 1,000 mg (2 x 500 mg) PO BID pen needle, diabetic (Comfort EZ Pen [place]) Use 1 pen needle once a day simvastatin 40 mg PO BEDTIME Tobacco use date assessed: 02/10/24 Dental Screening Dental Screen Date: 02/10/24 Did you have a dental visit in the last 12 months?: No Did you have a dental problem in the last 6 months where you did not have access to dental care?: No Was dental information given to patient?: Patient has dentist HPI HPI Comments History of Present Illness Details This is a 63-year-old male with morbid obesity and diabetes mellitus type 2 on long-term current use of insulin that comes for his physical exam. He is morbidly obese with a BMI of 40.6 and declines weight loss surgery. Was advised to do diet and exercise. A1c within goal. Last diabetic eye exam was April 2023 and showed no diabetic retinopathy. He declines colonoscopy or Cologuard even though he is aware of the consequences such as colon cancer and . Denies any chest pain or shortness of breath. [facility] Medical History (Updated 02/10/24 @ 08:28 by Michelle Villavicencio MD) Mild recurrent major depression Morbid obesity Neuropathy Essential hypertension Hypovitaminosis D Pure hypercholesterolemia Diabetes mellitus Surgical History Nephrolithiasis History of arthroscopy of right knee Family History Father Diabetes Hypertension Alcoholic liver disease Mother Diabetes Hypertension Sister Lung cancer Family/Other Diabetes Hypertension Hypercholesterolemia Social History Household Members: None [facility] Do you presently have visiting nurse or other home services: No Alcohol intake: never Patient Tobacco Use Status: Former Tobacco user Tobacco use type: Cigarette e-Cigarette/Vaping Use: Never Used Second Hand Smoke Exposure: No Advance Directives Date on File: 10/27/22 service: No Current occupational status: disabled Cognitive needs: No Hearing needs: No Vision needs: Yes Questionnaire PHQ-9 Over the last 2 weeks, how often have you been bothered by any of the following problems? 1. Little interest or pleasure in doing things: not at all 2. Feeling down, depressed, or hopeless: not at all 3. Trouble falling or staying asleep, or sleeping too much: not at all 4. Feeling tired or having little energy: not at all 5. Poor appetite or overeating: not at all 6. Feeling bad about yourself - or that you are a failure or have let yourself or your family down: not at all 7. Trouble concentrating on things, such as reading the newspaper or watching television: not at all 8. Moving or speaking so slowly that other people could have noticed. Or the opposite - being so fidgety or restless that you have been moving around a lot more than usual: not at all 9. Thoughts that you would be better off or of hurting yourself in some way: not at all Total score: 0 Depression Screening Interpretation: Negative Depression Screening Done: Yes 11783 - PHQ-9 Billing: Yes Source: Developed by Drs. Aly Acosta, Micheline Lynch, John Senior and colleagues, with an educational julianna from [employer]. Thrive Questionnaire Date Thrive assessed: 02/10/24 I am a: Patient What is your living situation today?: I have a steady place to live Within the past 12 months, did the food you bought not last and you didn't have the money to get more?: Never true Within the past 12 months, did you worry whether your food would run out before you got money to buy more?: Never true Do you have trouble paying for medicines?: No Do you have trouble getting transportation to medical appointments?: No Do you have trouble paying your heating and electricity bill?: No Do you have trouble taking care of your child, family member or friend?: No Do you have trouble with day-to-day activities such as bathing, preparing meals, shopping, managing finances, etc.?: No Are you currently unemployed and looking for a job?: No Are you interested in more education?: No Please select the resources that you would like help with: None Currently or been in a relationship where the following occur: no concerns reported THRIVE Score: 0 AUDIT C Alcohol Use Questionnaire (AUDIT-C) 1. How often do you have a drink containing alcohol?: Never Total Score: 0 Score Reviewed/Action Taken: No MIKAELA-7 AMB Questionnaire MIKAELA-7 Date MIKAELA - 7 assessed: 02/10/24 Feeling nervous, anxious, or on edge: 0 = Not at all Not being able to stop or control worryin = Not at all Worrying too much about different things: 0 = Not at all Trouble relaxin = Not at all Being so restless that it is hard to sit still: 0 = Not at all Becoming easily annoyed or irritable: 0 = Not at all Feeling afraid as if something awful might happen: 0 = Not at all Total MIKAELA-7 score (0-4 normal; 5-9 mild; 10-14 moderate; 15-21 severe): 0 Source: Developed by Drs. Aly Acosta, Micheline Lynch, John Senior and colleagues, with an educational julianna from [employer]. MIKAELA-7 Assessment Billing MIKAELA-7 Assessment Tool: MIKAELA-7 Assessment 67867 Review of Systems Const All systems reviewed & are unremarkable except as noted in HPI and below Eyes Reports no additional complaints, Denies change in vision and Denies other visual disturbances Card Denies chest pain at rest, Denies chest pain with activity, Denies edema, Denies irregular heart rhythm, Denies claudication, Denies dyspnea, Denies dyspnea on exertion, Denies orthopnea, Denies paroxysmal nocturnal dyspnea and Denies slow heart rate Resp Denies cough, Denies dyspnea and Denies dyspnea on exertion GI Denies abdominal pain, Denies change in bowel habits, Denies excessive flatus, Denies nausea and Denies vomiting Denies urinary hesitancy, Denies urinary incontinence and Denies urinary urgency Physical exam (Primary Care) Vital Signs: Last Vital Signs BP 122/80 02/10/24 07:53 BMI result Body Mass Index 40.6 Tobacco/Smoking Status: Tobacco use Status Tobacco use date assessed 02/10/24 02/10/24 08:00 Patient Tobacco Use Status Former Tobacco user 02/10/24 07:53 Tobacco use type Cigarette 02/10/24 07:53 e-Cigarette/Vaping Use Never Used 02/10/24 07:53 PHQ-9: PHQ-9 Score PHQ-9: Total score 0 02/10/24 08:06 Depression Screening Interpretation: Negative Thrive Assessment: Date of Thrive Assessment Date Thrive assessed 02/10/24 02/10/24 08:05 Currently or been in a relationship where the following occur: no concerns reported Const Orientation/consciousness: patient oriented x3 [facility] Head: Yes normal to inspection, Yes normocephalic and Yes atraumatic Ears: external ears normal Eyes General: appearance normal, both eyes and all related structures Eyelids: Yes eyelids normal Conjunctivae: conjunctivae normal Neck Neck: Yes normal visual inspection and Yes supple Resp Effort & Inspection: normal respiratory effort Auscultation: clear to auscultation bilaterally Cardio Jugular venous distension: no JVD Rate: regular rate Rhythm: regular rhythm Heart sounds: S1 normal heart sound present and S2 normal heart sound present GI Inspection: Yes normal to inspection Palpation (GI): Soft to palpation and nontender Auscultation: normal bowel sounds Skin General skin exam: no rashes or lesions noted Neuro General: patient oriented x3 and no focal motor deficits Extrem General: Yes full ROM Psych Appearance: grossly normal Results AMB Hemoglobin A1c AMB Hemoglobin A1c 6.0 % Last Edit by MIKALA Abraham on 02/10/24 08:04 Results Reviewed Results Reviewed: Laboratory Last Values Hgb A1c (Clinic) 6.0 % (4.0-6.0) 02/10/24 08:02 Assessment and Plan Assessment & Plan (1) Physical exam: Code(s): Z00.00 - Encounter for general adult medical examination without abnormal findings Plan: Repeat in a year. (2) Diabetes mellitus: Comment: last hgbA1c 09/09/23 was 7.8 Code(s): E11.9 - Type 2 diabetes mellitus without complications Qualifiers: Diabetes mellitus type: type 2 Diabetes mellitus rodent exterminator insulin use: without rodent exterminator use Diabetes mellitus complication status: with neurologic complications Diabetes mellitus complication detail: with other neurological complication Qualified Code(s): E11.49 - Type 2 diabetes mellitus with other diabetic neurological complication Plan: Continue insulin and Trulicity. A1c goal is equal or less than 7%. (3) Morbid obesity: Code(s): E66.01 - Morbid (severe) obesity due to excess calories Plan: Start diet and exercise. BMI goal is less than 30. Orders: Orders AMB Hemoglobin A1c Today E11.9 - Type 2 diabetes mellitus without complications Lipid Panel 4 Months E78.5 - Hyperlipidemia, unspecified Microalbumin, Random (w Creat) 4 Months E11.9 - Type 2 diabetes mellitus without complications Comprehensive [place]. Panel Fast 4 Months E11.49 - Type 2 diabetes mellitus with other diabetic neurological complication Coding Level of Care Code Est Pt Prev Care 40-64y(05487) Diagnoses Physical exam Z00.00 Type 2 diabetes mellitus with other neurologic complication, without long-term current use of insulin E11.49 Diabetes mellitus type: type 2 Diabetes mellitus rodent exterminator insulin use: without rodent exterminator use Diabetes mellitus complication status: with neurologic complications Diabetes mellitus complication detail: with other neurological complication Morbid obesity E66.01 Additional Codes MIKAELA-7 Assessment Billing - MIKAELA-7 Assessment Tool: MIKAELA-7 Assessment [id number] ([id number]) Time Spent (min) 32
[2024-02-10 07:53] VITALS: BP 122/80; BMI 40.6
== END 2024-02-10 08:27 | disposition home or self-care (01) ==
PROVIDERS: PCP Internal Medicine; Visit Provider Internal Medicine
DX: Z00.00 Encounter for general adult medical examination without abnormal findings (principal); E11.49 Type 2 diabetes mellitus with other diabetic neurological complication; E66.01 Morbid (severe) obesity due to excess calories; Z68.41 Body mass index [BMI] 40.0-44.9, adult
CPT/HCPCS: 83036; 99396

== ENCOUNTER 2024-04-23 06:49 | Outpatient (REF) | payer OTHER, SELFPAY ==
[2024-04-23 08:33] LABS: Creatinine Urine 126.75 mg/dL; Microalbum/Creatinine Ratio Ur 100.1 ug/mg cr (<30)
[2024-04-23 08:41] LABS: Alanine Aminotransferase 13 U/L (0-40); Albumin Level 4.1 g/dL (3.5-5.0); Alkaline Phosphatase 72 U/L (39-117); Anion Gap 14 (12-20); Aspartate Amino Transferase 14 U/L (5-37); Bilirubin Total 0.6 mg/dL (0.0-1.0); Blood Urea Nitrogen 19 mg/dL (9-16); Calcium 9.9 mg/dL (8.4-10.2); Carbon Dioxide 27 mmol/L (22-29); Chloride 104 mmol/L (96-108); Cholesterol 95 mg/dL (<200); Estimated Glomerular Filt Rate > 60; Glucose Fasting 96 mg/dL (60-99); HDL Cholesterol 28 mg/dL (>40); LDL Cholesterol Calculated 51 mg/dL (<100); Sodium 141 mmol/L (135-145); Total Protein 6.9 g/dL (6.5-8.0); Triglycerides 82 mg/dL (<150)
== END 2024-04-23 06:50 | disposition home or self-care (01) ==
LOC: HO.LAB 06:49
PROVIDERS: PCP Internal Medicine; Visit Provider Internal Medicine
DX: E78.5 Hyperlipidemia, unspecified (principal); E11.9 Type 2 diabetes mellitus without complications; E11.49 Type 2 diabetes mellitus with other diabetic neurological complication
CPT/HCPCS: 36415; 80053; 80061; 82043; 82570

== ENCOUNTER 2024-06-22 07:36 | Outpatient (AMB) | payer OTHER, SELFPAY ==
[2024-06-22 07:47] VITALS: BP 126/80; BMI 39.1
--- NOTE | 2024-06-22 07:47 | MHC.PC.OV ---
Vital Signs 06/22/24 07:47 Height 5 ft 2 in Weight 214 lb BMI 39.1 BP 126/80 Blood Pressure Location Lt brachial Position Sitting Intake Visit Reasons: dm Intake Note: Patient here for a follow up DM Radiology Tech Required: No Accompanied by: Self / Same As Patient Allergies shellfish derived [SHELLFISH DERIVED] Allergy (Mild, Verified 06/22/24 08:09) SWELLING;DIFF BREATHING shrimp [SHRIMP] Allergy (Mild, Verified 06/22/24 08:09) swelling,difficulty breathing Medication List - Last Reconciled 06/22/24 by Michelle Villavicencio MD amlodipine 5 mg See Protocol PO DAILY 90 days blood pressure monitor As directed blood sugar diagnostic ([employer] Ultra Test strips) Use 1 test strip twice a day blood-glucose meter ([employer] Ultra2 Meter) As directed dulaglutide (Trulicity) 0.75 mg (0.5 mL) subcut QWEEK 30 days gabapentin 300 mg PO DAILY 90 days insulin degludec (Tresiba FlexTouch U-200 insulin) 28 units (0.14 mL) subcut DAILY 30 days lancets ([employer] UltraSoft 2 Lancet) Use 1 lancet twice a day losartan 100 mg PO DAILY 90 days metformin 1,000 mg (2 x 500 mg) PO BID pen needle, diabetic (Comfort EZ Pen [place]) Use 1 pen needle once a day simvastatin 40 mg PO BEDTIME Tobacco use date assessed: 02/10/24 Dental Screening Dental Screen Date: 02/10/24 HPI HPI Comments History of Present Illness Details This is a 63-year-old male with diabetes mellitus type 2, hypertension, hyperlipidemia neuropathy that comes today for follow-up on his conditions. Last A1c in 06/01/2024 was 5.9%. Blood pressure stable. LDL within goal. Neuropathy stable with gabapentin. Diabetic eye exam was April of this year. Use obese and was advised to do diet and exercise. Declines weight loss. Declines colonoscopy, fit test or Cologuard. Follows with Nephrology once a year due to microalbuminuria. [facility] Medical History (Updated 06/22/24 @ 08:38 by Michelle Villavicencio MD) Mild recurrent major depression Morbid obesity Neuropathy Essential hypertension Hypovitaminosis D Pure hypercholesterolemia Diabetes mellitus Surgical History Nephrolithiasis History of arthroscopy of right knee Family History Father Diabetes Hypertension Alcoholic liver disease Mother Diabetes Hypertension Sister Lung cancer Family/Other Diabetes Hypertension Hypercholesterolemia Social History Household Members: None Housing: Condominium Do you presently have visiting nurse or other home services: No Alcohol intake: never Patient Tobacco Use Status: Former Tobacco user Tobacco use type: Cigarette e-Cigarette/Vaping Use: Never Used Second Hand Smoke Exposure: No Advance Directives Date on File: 10/27/22 service: No Current occupational status: disabled Cognitive needs: No Hearing needs: No Vision needs: Yes Questionnaire Thrive Questionnaire Date Thrive assessed: 02/10/24 MIKAELA-7 AMB Questionnaire MIKAELA-7 Date MIKAELA - 7 assessed: 02/10/24 Source: Developed by Drs. Aly Acosta, Micheline Lynch, John Senior and colleagues, with an educational julianna from [employer]. Review of Systems Const All systems reviewed & are unremarkable except as noted in HPI and below Card Denies chest pain at rest, Denies chest pain with activity, Denies edema, Denies irregular heart rhythm, Denies claudication, Denies dyspnea, Denies dyspnea on exertion, Denies orthopnea, Denies paroxysmal nocturnal dyspnea and Denies slow heart rate Resp Denies cough, Denies dyspnea and Denies dyspnea on exertion GI Denies abdominal pain, Denies change in bowel habits, Denies excessive flatus, Denies nausea and Denies vomiting Denies urinary hesitancy, Denies urinary incontinence and Denies urinary urgency Musc Denies abnormal gait, Denies atrophy, Denies deformity and Denies limited range of motion Skin/Breast Denies bleeding lesions, Denies changing lesions and Denies rash Neuro Denies abnormal gait, Denies behavioral changes and Denies lack of coordination Psych Denies behavioral changes Physical exam (Primary Care) Vital Signs: Last Vital Signs BP 126/80 06/22/24 07:47 BMI result Body Mass Index 39.1 BMI Assessment/Plan discussion: High BMI High, discussed plan: lifestyle, weight reduction, dietary and physical activity Tobacco/Smoking Status: Tobacco use Status Tobacco use date assessed 02/10/24 06/22/24 07:48 Patient Tobacco Use Status Former Tobacco user 06/22/24 07:48 Tobacco use type Cigarette 06/22/24 07:48 e-Cigarette/Vaping Use Never Used 06/22/24 07:48 Thrive Assessment: Date of Thrive Assessment Date Thrive assessed 02/10/24 06/22/24 07:48 Resp Effort & Inspection: normal respiratory effort Auscultation: clear to auscultation bilaterally Cardio Jugular venous distension: no JVD Rate: regular rate Rhythm: regular rhythm Heart sounds: S1 normal heart sound present and S2 normal heart sound present Skin General skin exam: no rashes or lesions noted Extrem General: Yes full ROM Assessment and Plan Assessment & Plan (1) Diabetes mellitus: Comment: last hgbA1c 06/01/24 was 5.9 Code(s): E11.9 - Type 2 diabetes mellitus without complications Qualifiers: Diabetes mellitus complication detail: with other neurological complication Diabetes mellitus complication status: with neurologic complications Diabetes mellitus continuous churn buttermaker insulin use: without skilled nursing use Diabetes mellitus type: type 2 Qualified Code(s): E11.49 - Type 2 diabetes mellitus with other diabetic neurological complication Plan: Decrease metformin. Increase Trulicity. A1c goal is equal or less than 7%. (2) Essential hypertension: Code(s): I10 - Essential (primary) hypertension Plan: Continue losartan. Blood pressure goal is equal or less than 130/80. (3) Hyperlipidemia LDL goal <70: Code(s): E78.5 - Hyperlipidemia, unspecified Plan: Continue statins. LDL goal is less than 70. (4) Neuropathy: Code(s): G62.9 - Polyneuropathy, unspecified Plan: Continue gabapentin. Orders: Orders Microalbumin, Random (w Creat) 4 Months E11.9 - Type 2 diabetes mellitus without complications Comprehensive [place]. Panel Fast 4 Months E11.49 - Type 2 diabetes mellitus with other diabetic neurological complication Lipid Panel 4 Months E78.5 - Hyperlipidemia, unspecified Medications: New metformin 500 mg PO BID 180 tabs 1RF 90 days dulaglutide (Trulicity) 1.5 mg (0.5 mL) subcut QWEEK 2 mL 6RF 4 weeks Refilled simvastatin 40 mg PO BEDTIME 90 tabs 0RF E78.5 - Hyperlipidemia, unspecified losartan 100 mg PO DAILY 90 tabs 1RF 90 days I10 - Essential (primary) hypertension insulin degludec (Tresiba FlexTouch U-200 insulin) 28 units (0.14 mL) subcut DAILY 4.2 mL 6RF 30 days E11.49 - Type 2 diabetes mellitus with other diabetic neurological complication gabapentin 300 mg PO DAILY 90 caps 3RF 90 days amlodipine 5 mg See Protocol PO DAILY 90 tabs 1RF 90 days I10 - Essential (primary) hypertension Discontinued metformin Discontinued Reason: Patient Completed Course 1,000 mg (2 x 500 mg) PO BID 360 tabs 3RF E11.49 - Type 2 diabetes mellitus with other diabetic neurological complication dulaglutide (Trulicity) Discontinued Reason: Patient Completed Course 0.75 mg (0.5 mL) subcut QWEEK 30 days 2.5 mL 6RF E11.9 - Type 2 diabetes mellitus without complications Coding Level of Care Code Est Pt Level 4 (44246) Complex EM visit Add On G2211 Diagnoses Type 2 diabetes mellitus with other neurologic complication, without long-term current use of insulin E11.49 Diabetes mellitus complication detail: with other neurological complication Diabetes mellitus complication status: with neurologic complications Diabetes mellitus skilled nursing insulin use: without skilled nursing use Diabetes mellitus type: type 2 Essential hypertension I10 Hyperlipidemia LDL goal <70 E78.5 Neuropathy G62.9 Time Spent (min) 22
== END 2024-06-22 08:17 | disposition home or self-care (01) ==
PROVIDERS: PCP Internal Medicine; Visit Provider Internal Medicine
DX: E11.49 Type 2 diabetes mellitus with other diabetic neurological complication (principal); I10 Essential (primary) hypertension; E78.5 Hyperlipidemia, unspecified; G62.9 Polyneuropathy, unspecified
CPT/HCPCS: 99214; G2211

== ENCOUNTER 2024-09-14 06:59 | Outpatient (REF) | payer OTHER, SELFPAY ==
[2024-09-14 08:24] LABS: Creatinine Urine 168.35 mg/dL
[2024-09-14 08:28] LABS: Alanine Aminotransferase 28 U/L (0-40); Albumin Level 4.1 g/dL (3.5-5.0); Alkaline Phosphatase 83 U/L (39-117); Anion Gap 13 (12-20); Aspartate Amino Transferase 30 U/L (5-37); Bilirubin Total 0.5 mg/dL (0.0-1.0); Blood Urea Nitrogen 15 mg/dL (9-16); Calcium 9.9 mg/dL (8.4-10.2); Carbon Dioxide 26 mmol/L (22-29); Chloride 107 mmol/L (96-108); Cholesterol 98 mg/dL (<200); Estimated Glomerular Filt Rate > 60; Glucose Fasting 116 mg/dL (60-99); HDL Cholesterol 33 mg/dL (>40); LDL Cholesterol Calculated 49 mg/dL (<100); Potassium 4.1 mmol/L (3.3-5.1); Sodium 142 mmol/L (135-145); Total Protein 7.1 g/dL (6.5-8.0); Triglycerides 83 mg/dL (<150)
== END 2024-09-14 07:00 | disposition home or self-care (01) ==
LOC: HO.LAB 06:59
PROVIDERS: PCP Internal Medicine; Visit Provider Internal Medicine
DX: E11.49 Type 2 diabetes mellitus with other diabetic neurological complication (principal); E78.5 Hyperlipidemia, unspecified
CPT/HCPCS: 36415; 80053; 80061; 82043; 82570

== ENCOUNTER 2024-11-16 07:26 | Outpatient (AMB) | payer OTHER, SELFPAY ==
--- NOTE | 2024-11-16 07:35 | A.OFFPC_ITS ---
Vital Signs 11/16/24 07:40 Height 5 ft 2 in Weight 219 lb BMI 40.1 BP 148/72 H Blood Pressure Location Lt brachial Position Sitting Intake Visit Reasons: DM follow up Intake Note: Patient here for a follow up DM Outside Installer Apprentice Required: No Accompanied by: Self / Same As Patient Allergies shellfish derived [SHELLFISH DERIVED] Allergy (Mild, Verified 11/16/24 07:50) SWELLING;DIFF BREATHING shrimp [SHRIMP] Allergy (Mild, Verified 11/16/24 07:50) swelling,difficulty breathing Medication List - Last Reconciled 11/16/24 by Michelle Villavicencio MD amlodipine 5 mg See Protocol PO DAILY 90 days blood pressure monitor As directed blood sugar diagnostic (OneTouch Ultra Test strips) Use 1 test strip twice a day blood-glucose meter ([employer]C iFLYTEK Science and TechnologyTouch Ultra2 Meter) As directed dulaglutide (Trulicity) 1.5 mg (0.5 mL) subcut QWEEK 4 weeks gabapentin 300 mg PO DAILY 90 days hydroxyzine HCl 25 mg PO TID PRN 10 days insulin degludec (Tresiba FlexTouch U-200 insulin) 28 units (0.14 mL) subcut DAILY 30 days lancets ([employer] iFLYTEK Science and TechnologyTouch UltraSoft 2 Lancet) Use 1 lancet twice a day losartan 100 mg PO DAILY 90 days metformin 500 mg PO BID 90 days pen needle, diabetic (Comfort EZ Pen [place]) Use 1 pen needle once a day simvastatin 40 mg PO BEDTIME Tobacco use date assessed: 02/10/24 Dental Screening Dental Screen Date: 11/16/24 Did you have a dental visit in the last 12 months?: No Did you have a dental problem in the last 6 months where you did not have access to dental care?: No Was dental information given to patient?: Patient has dentist HPI HPI Comments History of Present Illness Details The patient is a 64-year-old male presenting with a follow-up for management of Type 2 Diabetes Mellitus, Essential Hypertension, and Hyperlipidemia. The patient's diabetes is currently well-controlled with an A1c of 6.2%. He is on Trulicity injections once a week and takes Metformin 500 mg twice daily, as well as Tresiba 28 units per day. For hypertension, he is on Amlodipine 5 mg daily and Losartan 100 mg, which was taken today. The patient's blood pressure was recorded at 148/72 during this visit. Hyperlipidemia is managed with Simvastatin 40 mg at bedtime, and his LDL is less than 70, meeting current goals. The patient has a history of obesity, with a BMI of 40.1. Recent weight changes have been noted, with an increase from 214 pounds last year to 219 pounds, despite attempts to reduce food intake. The patient experienced a mild upper respiratory tract infection last week, which resolved without medical intervention. He complains of elevated protein levels in his urine consisting of microalbuminuria, confirmed by recent tests, and is advised to follow up with nephrology. The patient is allergic to shellfish, specifically shrimp, and takes Gabapentin once daily for unspecified reasons. [facility] Medical History (Updated 11/16/24 @ 08:07 by Michelle Villavicencio MD) Morbid obesity Neuropathy Essential hypertension Hypovitaminosis D Pure hypercholesterolemia Diabetes mellitus Surgical History Nephrolithiasis History of arthroscopy of right knee Family History Father Diabetes Hypertension Alcoholic liver disease Mother Diabetes Hypertension Sister Lung cancer Family/Other Diabetes Hypertension Hypercholesterolemia Social History Household Members: None Housing: Condominium Do you presently have visiting nurse or other home services: No Alcohol intake: never Patient Tobacco Use Status: Former Tobacco user Tobacco use type: Cigarette e-Cigarette/Vaping Use: Never Used Second Hand Smoke Exposure: No Advance Directives Date on File: 10/27/22 service: No Current occupational status: disabled Cognitive needs: No Hearing needs: No Vision needs: Yes Questionnaire Thrive Questionnaire Date Thrive assessed: 02/10/24 MIKAELA-7 AMB Questionnaire MIKAELA-7 Date MIKAELA - 7 assessed: 02/10/24 Source: Developed by Drs. Aly Acosta, Micheline Lynch, John Senior and colleagues, with an educational julianna from [employer]. Review of Systems Const All systems reviewed & are unremarkable except as noted in HPI and below Card Denies chest pain at rest, Denies chest pain with activity, Denies edema, Denies irregular heart rhythm, Denies claudication, Denies dyspnea, Denies dyspnea on exertion, Denies orthopnea, Denies paroxysmal nocturnal dyspnea and Denies slow heart rate Resp Denies cough, Denies dyspnea and Denies dyspnea on exertion Physical exam (Primary Care) Vital Signs: Last Vital Signs BP 148/72 H 11/16/24 07:40 BMI result Body Mass Index 40.1 BMI Assessment/Plan discussion: High BMI High, discussed plan: lifestyle, weight reduction, dietary and physical activity Tobacco/Smoking Status: Tobacco use Status Tobacco use date assessed 02/10/24 11/16/24 07:35 Patient Tobacco Use Status Former Tobacco user 11/16/24 07:35 Tobacco use type Cigarette 11/16/24 07:35 e-Cigarette/Vaping Use Never Used 11/16/24 07:35 Thrive Assessment: Date of Thrive Assessment Date Thrive assessed 02/10/24 11/16/24 07:35 Resp Effort & Inspection: normal respiratory effort Auscultation: clear to auscultation bilaterally Cardio Jugular venous distension: no JVD Rate: regular rate Rhythm: regular rhythm Heart sounds: S1 normal heart sound present and S2 normal heart sound present Extrem General: Yes full ROM Office Procedures Flu Questionnaire Does the patient have a severe egg allergy?: No Results AMB Hemoglobin A1c AMB Hemoglobin A1c 6.2 % Last Edit by MIKALA Abraham on 11/16/24 07:5 2 Immunizations Fluarix Triv [id number] (PF) 45 mcg (15 mcg x 3)/0.5 mL IM syringe Performing Provider: Michelle Villavicencio MD [facility] Documented (not given) by: MIKALA Abraham on 11/16/24 07:43 Reason Not Given: Received Previously Coding Level of Care Code Est Pt Level 4 (64006) Complex EM visit Add On G2211 Diagnoses Type 2 diabetes mellitus with other neurologic complication, without long-term current use of insulin E11.49 Diabetes mellitus type: type 2 Diabetes mellitus manager terminal insulin use: without nursing home use Diabetes mellitus complication status: with neurologic complications Diabetes mellitus complication detail: with other neurological complication Essential hypertension I10 Hyperlipidemia LDL goal <70 E78.5 Microalbuminuria R80.9 Morbid obesity with BMI of 40.0-44.9, adult E66.01; Z68.41 Time Spent (min) 23 Assessment & Plan Assessment & Plan (1) Diabetes mellitus: Comment: last hgbA1c 06/01/24 was 5.9 Code(s): E11.9 - Type 2 diabetes mellitus without complications Category: Medical Qualifiers: Diabetes mellitus type: type 2 Diabetes mellitus manager terminal insulin use: without manager terminal use Diabetes mellitus complication status: with neurologic complications Diabetes mellitus complication detail: with other neurological complication Qualified Code(s): E11.49 - Type 2 diabetes mellitus with other diabetic neurological complication (2) Essential hypertension: Code(s): I10 - Essential (primary) hypertension Category: Medical (3) Hyperlipidemia LDL goal <70: Code(s): E78.5 - Hyperlipidemia, unspecified Category: Medical (4) Microalbuminuria: Code(s): R80.9 - Proteinuria, unspecified Category: Medical (5) Morbid obesity with BMI of 40.0-44.9, adult: Code(s): E66.01 - Morbid (severe) obesity due to excess calories; Z68.41 - Body mass index [BMI] 40.0-44.9, adult Category: Medical Plan - Conduct blood pressure recheck in three weeks with a nurse navigator. - Change Trulicity to Ozempic for weight management; start at the initial dose to monitor tolerance. - Continue current diabetes management, considering Nephrology suggestions regarding microalbuminuria. - Encourage further weight reduction through dietary modifications and explore physical activity opportunities. - Patient to visit the pharmacy for RSV vaccine information. Patient was informed and verbally consented to the use of an ambient scribe for clinic note documentation during this visit. I discussed the management of Type 2 Diabetes Mellitus, hypertension, hyperlipidemia, and obesity with the patient. The importance of maintaining current diabetes control was highlighted, with A1c levels being excellent at 6.2%. I recommended transitioning from Trulicity to Ozempic to aid weight management and emphasized the importance of continued monitoring of blood pressure. We reviewed the current medications and the potential for Ozempic to provide benefits in terms of weight loss. The patient's spiked blood pressure during the visit will be re-evaluated in three weeks. I advised following up with Nephrology regarding microalbuminuria. Additionally, I provided education regarding the RSV vaccine, advising the patient to inquire at his pharmacy. We discussed the patient's weight management efforts, encouraging further reduction, and offered reassurance regarding improved health outcomes if successful. Orders: Orders AMB Hemoglobin A1c Today E11.49 - Type 2 diabetes mellitus with other diabetic neurological complication Influenza [id number] Immunization Today Z23 - Encounter for immunization Lipid Panel 3 Months E78.5 - Hyperlipidemia, unspecified Microalbumin, Random (w Creat) 3 Months R80.9 - Proteinuria, unspecified Comprehensive [place]. Panel Fast 3 Months E11.49 - Type 2 diabetes mellitus with other diabetic neurological complication Medications: Discontinued hydroxyzine HCl Discontinued Reason: Patient Completed Course 25 mg PO TID 10 days PRN 30 tabs 0RF itching Patient Instructions: - Take all medications as prescribed, including Metformin, Losartan, Amlodipine, Simvastatin, and Gabapentin. - Schedule a follow-up appointment with a nurse navigator in three weeks to recheck blood pressure. - Begin Ozempic injections as instructed by the clinic; monitor for gastrointestinal side effects. - Maintain current dietary adjustments aimed at weight reduction; consider increasing physical activity. - Visit pharmacy to inquire about the RSV vaccine and discuss its benefits and potential adverse effects. - Monitor symptoms and report any significant changes in health status immediately.
[2024-11-16 07:40] VITALS: BP 148/72; BMI 40.1
== END 2024-11-16 08:02 | disposition home or self-care (01) ==
PROVIDERS: PCP Internal Medicine; Visit Provider Internal Medicine
DX: E11.49 Type 2 diabetes mellitus with other diabetic neurological complication (principal); E66.01 Morbid (severe) obesity due to excess calories; Z68.41 Body mass index [BMI] 40.0-44.9, adult; I10 Essential (primary) hypertension; E78.5 Hyperlipidemia, unspecified; R80.9 Proteinuria, unspecified

== ENCOUNTER → 2024-11-16 07:26 | Outpatient (BNVA) | payer OTHER, SELFPAY | PROVIDERS: PCP Internal Medicine; Visit Provider Internal Medicine | DX: E11.49 Type 2 diabetes mellitus with other diabetic neurological complication (principal); E78.5 Hyperlipidemia, unspecified; I10 Essential (primary) hypertension; R80.9 Proteinuria, unspecified; E66.01 Morbid (severe) obesity due to excess calories; Z68.41 Body mass index [BMI] 40.0-44.9, adult; Z71.3 Dietary counseling and surveillance | CPT/HCPCS: 83036; 99212 ==

== ENCOUNTER 2025-02-07 06:00 | Outpatient (REF) | payer OTHER, SELFPAY ==
[2025-02-07 07:28] LABS: Alanine Aminotransferase 26 U/L (0-40); Alkaline Phosphatase 78 U/L (39-117); Anion Gap 12 (12-20); Aspartate Amino Transferase 25 U/L (5-37); Bilirubin Total 0.5 mg/dL (0.0-1.0); Blood Urea Nitrogen 20 mg/dL (9-16); Calcium 9.3 mg/dL (8.4-10.2); Carbon Dioxide 23 mmol/L (22-29); Chloride 112 mmol/L (96-108); Cholesterol 106 mg/dL (<200); Estimated Glomerular Filt Rate > 60; Glucose Fasting 98 mg/dL (60-99); HDL Cholesterol 31 mg/dL (>40); LDL Cholesterol Calculated 53 mg/dL (<100); Potassium 4.5 mmol/L (3.3-5.1); Sodium 142 mmol/L (135-145); Triglycerides 110 mg/dL (<150)
[2025-02-07 07:29] LABS: Creatinine Urine 100.22 mg/dL; Microalbum/Creatinine Ratio Ur 170.6 ug/mg cr (<30)
== END 2025-02-07 06:01 | disposition home or self-care (01) ==
LOC: HO.LAB 06:00
PROVIDERS: PCP Internal Medicine; Visit Provider Internal Medicine
DX: E11.49 Type 2 diabetes mellitus with other diabetic neurological complication (principal); E78.5 Hyperlipidemia, unspecified; R80.9 Proteinuria, unspecified
CPT/HCPCS: 36415; 80053; 80061; 82043; 82570

== ENCOUNTER 2025-02-16 08:07 | Outpatient (AMB) | payer OTHER, SELFPAY ==
--- OUTSIDE RECORDS SUMMARY | 2025-02-16 08:12 | XMS_ITS | Data Portability ---
Author Organization [email or web address] [place], [place] in - [facility] Address [address] [place] [id number] Care Team Providers Care Sheep Sorter Name Role Phone [facility] Referring Provider [phone] Assessment Encounter Date Assessment Date Assessment LastModified by Organization Details LastModified Time 05/15/2023 05/15/2023 62 YOM with hx of NIDDM being seen for polyuria, fatigue and poor appetite. Gluc >700 NA 122, K 5.3, Cr 1.2 Pt started on IVFs but transported to ED due to severity of hyperglycemia and metabolic disarray. [email or web address] Not available 05/15/2023 15:02:55 Plan of Treatment Reminders Order Date Submit Date Provider Last Modified By Organization Details Last Modified Time Details Appointments None recorded . Lab BMP, serum or plasma 023 05/15/20 23 [email or web address] [address], [phone] 15:02:18 Referral None recorded . Procedures None recorded . Surgeries None recorded . Imaging None recorded . Medication Orders None recorded . Patient TargetsNo targets recorded. Patient InstructionsNo instructions recorded. Reason for Referral None Reported. Results Created Date Observation Date Name Description Value Unit Range Abnormal Flag Note LastModifiedBy Organization Detail LastModifiedTime 05/15/2005/15/2023 BMP, serum or plasm a CRE 1.2 Not Available [facility] - [facility] [address], [phone] 05/15/2023 15:01:56 05/15/20 23 05/15/2023 BMP, serum or plasm a GLU >700 Not Available [facility] [address], [phone] 05/15/2023 15:01:56 05/15/20 23 05/15/2023 BMP, serum or plasm a K+ 5.3 Not Available [facility] [address], [phone] 05/15/2023 15:01:56 05/15/20 23 05/15/2023 BMP, serum or plasm a Na+ 122 Not Available [facility] [address] [place] [address], [phone] 05/15/2023 15:01:56 Result Notes None recorded. Medical Equipment None Reported. Medications Name Sig Start Date Stop Date Status Note LastModified by Organization Details LastModified Time pioglitazone 15 mg tablet TAKE 1 TABLET BY MOUTH DAILY active Not Available Not Available Not Available metformin 500 mg tablet TAKE 2 TABLETS BY MOUTH TWICE A DAY active Not Available Not Available No t Available venlafaxine ER 37.5 mg capsule,exte nded release 24 hr TAKE 1 CAPSULE BY MOUTH DAILY ATS BEDTIME active Not Available Not Available Not Available amlodipine 5 mg tablet TAKE 1 TABLET BY MOUTH DAILY active Not Available Not Available Not Available simvastatin 40 mg tablet TAKE 1 TABLET BY MOUTH EVERY DAY AT BEDTIME active Not Available Not Available No t Available gabapentin 300 mg capsule TAKE 1 CAPSULE BY MOUTH DAILY active Not Available Not Available Not Available losartan 100 mg tablet TAKE 1 TABLET BY MOUTH DAILY active Not Available Not Available Not Available Ozempic 0.25 mg or 0.5 mg (2 mg/1.5 mL) subcutaneous pen injector 0.25 MG (0.2 ML) SUBCUTANEOU SLY EVERY WEEK FOR 28 DAYS FOR 4 DOSES active Not Available Not Available No t Available Rybelsus 7 mg tablet TAKE 1 TABLET BY MOUTH DAILY active Not Available Not Available Not Available Vitals Date Recorded Respiratory rate Oxygen saturation Oxygen saturation in Arterial blood by Pulse oximetry Heart rate Body temperature Systolic blood pressure Diastolic blood pressure Provider Name and Address Organization Details Last Updated DateTime 3 18 /min 97 % 97 % 96 /min 98 [degF] 132 mm[Hg] 85 mm[Hg] Not Available [facility] - production 14:58:16 Social History None recorded. Functional Status None recorded. Mental Status None recorded. Family History Nothing Reported. Medical History No medical history recorded. Past Encounters Encounter ID Performer Location Encounter Start Date Encounter Closed Date Diagnosis/Indication Diagnosis SNOMED-CT Code Diagnosis ICD10 Code Diagnosis Note [id number] Casper Hogan MD [facility] [address] [place] [phone] 05/15/2023 14:58:01 05/15/2023 23:25:06 Hyperglycemia 86396336 R73.9 Health Concerns Section Related Observation LastModified by Organization Detai ls LastModified Time None Recorded Concern Status LastModified by Organization Details LastModified Time None Recorded Advance Directives Directive None Recorded Payers Encounter Date Sequence Insurance Name Policy Number Policy Bolaños Covered Member ID Bolaños Member ID Guarantor Name 05/15/2023 1 [facility] - DOS ON OR AFTER 2023 - DUAL ELIGIBLE - DETENTION OPTIONS AND ONE CARE (MEDICARE REPLACEMENT/ADV ANTAGE - HMO) Isaac Rod [id number] Isaac Rod Notes Date Note Type Note Provider Name and Address Organization Details Recorded Time 05/15/2023 text/html [facility] Nursing Assessment: Reason For Request: Sugar is high>urinating frequency, every 15 to 20 minutes. PT reporting 12 days of no appetite, no taste buds. Takes a few bites of food and cannot stomach it. Pt states he really has only been drinking fluids. No flu like symptoms to report. No history of UTI. Has lost 12 pounds since not eating. Wants to eat but no appetite. Chief Complaints: Dehydration, Diabetes Related, Electrolyte Imbalance PMH: Diabetes, Hypertension, Other Allergies: No Known Comments: Member calling in to place a referral, identified via /name. Member with 12 days of weakness and nausea, denies vomiting or diarrhea, no abdominal pain, no fever/chills. Member is a type 2 DM, takes metformin but does not check blood sugars at home. Member had blood work a month ago that indicated an elevated blood sugar. Member does have an increase in thirst and urination. Member has an appt with his PCP May 28. Member overall not feeling well and would like to be evaluated. Casper Hogan MD [address] [facility],[address], [place], [address], [facility] 05/15/2023 15:03:15
--- OUTSIDE RECORDS SUMMARY | 2025-02-16 08:12 | XMS_ITS | Clinical Summary ---
Author Organization [facility] [address] [facility] Address [address] [place] [address] Phone Care Team Providers Care Cylinder Filler Name Role Phone Michelle Villavicencio MD Primary Care Provider [phone] Allergies Active Allergy Reactions Criticality Noted Date Comments Shrimp Anaphylaxis High 07/26/2024 Medications amLODIPine (NORVASC) 5 mg tablet Take 1 Tablet by mouth daily. Active metFORMIN (GLUCOPHAGE) 1,000 mg tablet Take 1 tablet (1,000 mg total) by mouth 2 (two) times a day with meals. Active pen needle, diabetic (Pen Needle) 31 gauge x 3/16 needle by Does not apply route. Active simvastatin (ZOCOR) 40 mg tablet Take 1 Tablet by mouth at bedtime. Active losartan (COZAAR) 100 mg tablet Take 1 Tablet by mouth daily. Active gabapentin (NEURONTIN) 300 mg capsule Take 1 Capsule by mouth daily. Active insulin degludec (Tresiba FlexTouch U-200) 200 unit/mL (3 mL) CONCENTRATED injection pen Inject 28 Units into the skin at bedtime. 3 Active semaglutide (Ozempic) 0.25 mg or 0.5 mg(2 mg/1.5 mL) injection pen Inject 0.25 mg under the skin every 7 (seven) days. Active OneTouch Ultra Test test strip 1 each by Other route 2 (two) times a day. 4 Active Encounters Date Type Department Care Team Description 11/26/2024 8:20 AM EST Office Visit [address] [phone] Cindi Morley PA Type 2 diabetes mellitus with diabetic microalbuminuria, with long-term current use of insulin ([facility]) (Primary Dx); Primary hypertension; Hyperlipidemia, unspecified hyperlipidemia type; Microalbuminuria from Last 3 Months Social History Tobacco Use Types Packs/Day Years Used Date Smoking Tobacco: Never Smokeless Tobacco: Never Tobacco Cessation:Counseling Given: Not Answered Alcohol Use Standard Drinks/Week Comments Not Currently 0 (1 standard drink = 0.6 oz pur e alcohol) Sex and Gender Information Value Date Recorded Sex Assigned at Not on file Legal Sex Male 8:55 PM EST Gender Identity Not on file Sexual Orientation Not on file Obstetrics History Last Filed Vital Signs Vital Sign Reading Time Taken Comments Blood Pressure 118/68 11/26/2024 8:26 AM EST C Pulse 74 11/26/2024 8:26 AM EST Temperature 36.5 ??C (97.7 ??F) 11/26/2024 8:26 AM ES T Respiratory Rate - - Oxygen Saturation 98% 11/26/2024 8:26 AM EST Inhaled Oxygen Concentration - - Weight 101 kg (222 lb 12.8 oz) 11/26/2024 8:26 A M EST Height 157.5 cm (5' 2 ) 11/26/2024 8:26 AM EST Body Mass Index 40.75 11/26/2024 8:26 AM EST Plan of Treatment Upcoming Encounters Date Type Department Care Team (Late st Contact Info) Description 03/28/2025 8:20 AM EDT Office Visit [address] [phone] Cindi Morley PA [address] [place], [place] Health Maintenance Due Date Last Done Comments Diabetes: Annual GFR (Glomer ular Filtration Rate) 1961 Diabetes: Annual Foot Exam 1971 Diabetes: Annual Retina Eye Exam 1971 DTaP,Tdap,and Td Vaccines (1 - Tdap) 1980 Pneumococcal Vaccine: 50+ Ye ars (1 of 2 - PCV) 1980 Pneumococcal Vaccine: Pediat rics (0 to 5 Years) and At-Risk Patients (6 to 64 Years) (1 of 2 - PCV) 1980 Zoster Vaccines (1 of 2) 2011 RSV Immunization Adult Patie nts (1 - Risk 60-74 years 1-dose series) 2021 Cholesterol Screening (Lipid Panel) 12/05/2023 Colorectal Cancer Screening: Colonoscopy 12/05/2023 Depression Screening 12/05/2023 HIV Screening 12/05/2023 Hepatitis C Screening 12/05/2023 Social Influencers of Health Screening 12/05/2023 Diabetes: Annual Urine Albumin-Creatinine Ratio (uACR) 11/26/2024 Diabetes: Blood Sugar Contro l Test (HGBA1C) 11/26/2024 09/09/2023 Hypertension/CHF/CAD Annual BMP Blood Test 11/26/2024 COVID-19 Vaccine Completed 08/27/2024 Influenza Vaccine Completed 08/27/2024 HIB Vaccines Aged Out No longer eligi ble based on patient's age to complete this topic HPV Vaccines Aged Out No longer eligi ble based on patient's age to complete this topic Hepatitis A Vaccines Aged Out No long er eligible based on patient's age to complete this topic Hepatitis B Vaccines Aged Out No long er eligible based on patient's age to complete this topic IPV Vaccines Aged Out No longer eligi ble based on patient's age to complete this topic MMR Vaccines Aged Out No longer eligi ble based on patient's age to complete this topic Meningococcal ACWY Vaccine Aged Out N o longer eligible based on patient's age to complete this topic Meningococcal B Vaccine Aged Out No l onger eligible based on patient's age to complete this topic RSV Immunization Patients Un henrietta 20 months Aged Out No longer eligible b ased on patient's age to complete this topic Varicella Vaccines Aged Out No longer eligible based on patient's age to complete this topic Procedures Procedure Name Priority Date/Time Associated Diagnosis Comments HEMOGLOBIN A1C Routine 09/09/2023 from Last 3 Months or Most Recently Relevant to Health Maintenance Results * (ABNORMAL) Hemoglobin A1c (09/09/2023) Hemoglobin A1C 7.8(A) <=6.5 % Blood Venous blood specimen / Unknown us Historical Provider LAB BLOOD ORDERABLES Lynnette l Result from Last 3 Months or Most Recently Relevant to Health Maintenance Insurance [address] [place] [id number] MEDICA[place] - [place] Care Teams Cylinder Filler Relationship Specialty Start Date End Date Michelle Villavicencio MD [address] [place] [address] , [address] [facility] [place] PCP - General 05/29/23
--- OUTSIDE RECORDS SUMMARY | 2025-02-16 08:12 | XMS_ITS | Encounter Summary ---
Author Organization [facility] Address [address] [place] [address] Care Team Providers Care Manager Credit Name Role Phone Unavailable Primary Care Provider Unavailabl e Encounter Details Date Type Department Care Team (Latest Contact Info) Description 06/20/2021 Abstract [facility] CONVERSIONS Dental, Provider, DDS Social History Tobacco Use Types Packs/Day Years Used Date Smoking Tobacco: Never Assessed Sex and Gender Information Value Date Recorded Sex Assigned at Male 09/09/2022 10:31 AM EDT Legal Sex Male 10:31 AM EDT Gender Identity Male 09/09/2022 10:31 AM EDT Sexual Orientation Don't know 09/09/2022 10 :31 AM EDT documented as of this encounter Plan of Treatment Not on file documented as of this encounter Visit Diagnoses Not on filedocumented in this encounter
--- OUTSIDE RECORDS SUMMARY | 2025-02-16 08:12 | XMS_ITS | Clinical Summary ---
Author Organization [facility] Facility Address [address] [place] [id number] Care Team Providers Care Information Security Manager Name Role Phone Michelle Lind MD Primary Care Provider [phone] Allergies No known active allergies Medications simvastatin (ZOCOR) 40 MG tablet Take 40 mg by mouth at bed time at bedtime 3 Active pioglitazone (ACTOS) 15 MG tablet Take 15 mg by mouth 1 (one) time each day 3 Active metFORMIN (GLUCOPHAGE) 500 MG tablet Take 1,000 mg by mouth in the morning and 1,000 mg in the evening. 3 Active losartan (COZAAR) 100 MG tablet Take 100 mg by mouth 1 (one) time each day 3 Active gabapentin (NEURONTIN) 300 MG capsule Take 300 mg by mouth 1 (one) time each day 3 Active amLODIPine (NORVASC) 5 MG tablet Take 5 mg by mouth 1 (one) time each day 3 Active Trulicity 1.5 MG/0.5ML solution auto-injector INJECT 1.5 MG (0.5 ML) SUBCUTANEOUSLY EVERY WEEK FOR 4 WEEKS 4 Active Dulaglutide (Trulicity) 1.5 MG/0.5ML solution pen-injector INJECT 1.5 MG (0.5 ML) SUBCUTANEOUSLY EVERY WEEK FOR 4 WEEKS 4 Active Active Problems Problem Noted Date Diagnosed Date Chronic kidney disease, stage 2 (mild) 4 Chronic kidney disease, stage 2 (mild) 3 Proteinuria 09/29/2023 Acute nontraumatic kidney injury 05/19/2023 Diabetes mellitus 05/19/2023 Hypertensive disorder 05/19/2023 Hyperlipidemia 05/19/2023 Stage 3a chronic kidney disease 05/19/2023 Type 2 diabetes mellitus wit h diabetic chronic kidney disease 05/19/2023 Social History Tobacco Use Types Packs/Day Years Used Date Smoking Tobacco: Never Tobacco Cessation:Counseling Given: Not Answered Alcohol Use Standard Drinks/Week Comments Never 0 (1 standard drink = 0.6 oz pur e alcohol) Sex and Gender Information Value Date Recorded Sex Assigned at Not on file Legal Sex Male 9:21 AM EST Gender Identity Not on file Sexual Orientation Not on file Last Filed Vital Signs Vital Sign Reading Time Taken Comments Blood Pressure 118/80 10/04/2024 2:44 PM EST Pulse 76 10/04/2024 2:44 PM EST Temperature - - Respiratory Rate - - Oxygen Saturation 95% 10/04/2024 2:44 PM EST Inhaled Oxygen Concentration - - Weight 97.6 kg (215 lb 3.2 oz) 10/04/2024 2:44 P M EST Height - - Body Mass Index - - Plan of Treatment Upcoming Encounters Date Type Department Care Team (Late st Contact Info) Description 10/10/2025 2:00 PM EST Office Visit [facility] [address] [place] [address] Obey Ansari MD [address] [facility] [address] [place] [address] Health Maintenance Due Date Last Done Comments Pneumococcal Vaccine: Pediat rics (0 to 5 Years) and At-Risk Patients (6 to 64 Years) (1 of 2 - PCV) 1967 Colorectal Cancer Screening: Annual FOBT 2010 Colorectal Cancer Screening: Colonoscopy 2010 Colorectal Cancer Screening: Sigmoidoscopy 2010 Diabetes: Ophthalmology Exam 05/19/2023 Diabetes: Pedal Pulse Checked 05/19/2023 Diabetes: Sensory Foot Exam 05/19/2023 Diabetes: Visual Foot Exam 05/19/2023 Diabetes: Hemoglobin A1C 12/10/2023 09/09/2023 Influenza Vaccine (Season Ended) 2025 Hepatitis B Vaccine Aged Out No longe r eligible based on patient's age to complete this topic [place] [address] [place] [address] ([id number]) [facility] ([id number]) Care Teams Information Security Manager Relationship Specialty Start Date End Date Michelle Lind MD [address] [place], [place] PCP - General Internal Medicine 10/04/24
--- OUTSIDE RECORDS SUMMARY | 2025-02-16 08:13 | XMS_ITS | Clinical Summary ---
Author Organization [employer] Address [address] [facility] [address] [place] [address] Care Team Providers Care Rinkman Name Role Phone Unavailable Primary Care Provider Unavailabl e Social History Tobacco Use Types Packs/Day Years Used Date Smoking Tobacco: Never Assessed Sex and Gender Information Value Date Recorded Sex Assigned at Male 09/09/2022 10:31 AM EDT Legal Sex Male 10:31 AM EDT Gender Identity Male 09/09/2022 10:31 AM EDT Sexual Orientation Don't know 09/09/2022 10 :31 AM EDT Plan of Treatment Health Maintenance Due Date Last Done Comments CT Colonography 1961 Colonoscopy 1961 Colorectal Cancer Screening 1961 Depression Screening 1961 FIT DNA/Cologuard 1961 FIT 1961 FOBT 1961 Lipid Panel 1961 Sigmoidoscopy 1961 Alcohol/Substance Use Screening 1973 Tobacco Screening 1973 DTaP/Tdap/Td Vaccines (1 - Tdap) 1980 Pneumococcal Vaccine: 50+ Ye ars (1 of 1 - PCV) 2011 Zoster Vaccines (1 of 2) 2011 COVID-19 Vaccine ( - 2023-2 5 season) 2024 Influenza Vaccine (#1) 2024 RSV Patients and Pa tients Aged 60 years or older (1 - 1-dose 75+ series) 2036 HIB Vaccines Aged Out No longer eligi [...] patient's age to complete this topic Meningococcal Vaccine Aged Out No mey pepito eligible based on patient's age to complete this topic Pneumococcal Vaccine: Pediat rics (0 to 5 Years) and At-Risk Patients (6 to 49) Years) Aged Out No longer eligible b ased on patient's age to complete this topic RSV under 20 months Aged Out No longe r eligible based on patient's age to complete this topic Rotavirus Vaccines Aged Out No longer eligible based on patient's age to complete this topic
[2025-02-16 08:20] VITALS: BP 128/78; PULSE 78; RESP 16; TEMP 36.2; O2SAT 96; BMI 42.8
--- NOTE | 2025-02-16 08:20 | A.OFFPC_ITS ---
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 [employer]ing Required: No Accompanied by: Self / Same As Patient Allergies shellfish derived [SHELLFISH DERIVED] Allergy (Mild, Verified 02/16/25 09:02) SWELLING;DIFF BREATHING shrimp [SHRIMP] Allergy (Mild, Verified 02/16/25 09:02) swelling,difficulty breathing Medication List - Last Reconciled 02/16/25 by Michelle Villavicencio MD amlodipine 5 mg See Protocol PO DAILY 90 days blood pressure monitor As directed blood sugar diagnostic (OneTouch Ultra Test strips) Use 1 test strip twice a day blood-glucose meter (SAK ProjectTouch Ultra2 Meter) As directed gabapentin 300 mg PO DAILY 90 days insulin degludec (Tresiba FlexTouch U-200 insulin) 28 units (0.14 mL) subcut DAILY 30 days lancets (SAK ProjectTouch UltraSoft 2 Lancet) Use 1 lancet twice a day losartan 100 mg PO DAILY 90 days metformin 500 mg PO BID 90 days pen needle, diabetic (Comfort EZ Pen [place]) Use 1 pen needle once a day semaglutide (Ozempic) 0.25 mg (0.368 mL) subcut QWEEK 4 weeks simvastatin 40 mg PO BEDTIME Tobacco use date assessed: 02/16/25 Dental Screening Dental Screen Date: 02/16/25 Did you have a dental visit in the last 12 months?: No Did you have a dental problem in the last 6 months where you did not have access to dental care?: No Was dental information given to patient?: Patient has dentist HPI HPI Comments History of Present Illness Details The patient is a 64-year-old male presenting for his annual physical examination. He has a history of controlled Type 2 Diabetes Mellitus with an improved A1c level of 6.7%. His essential hypertension and hyperlipidemia are similarly well-managed according to his recent lab results. Despite these managed chronic illnesses, morbid obesity remains a significant concern, indicating a need for lifestyle interventions. The patient's medical history includes a shellfish allergy and cataracts impacting his vision. He reported sleep issues characterized by early awakening and difficulty returning to sleep, potentially due to late evening caffeine consumption. Gastrointestinal complaints include infrequent bowel movements, which could be linked to the Ozempic medication he is prescribed. He has undergone past surgeries, including a right knee arthroscopy and kidney stone removal. - Pneumococcal vaccine booster recommend ed due to administration prior to age 65 and diabetic status - Review of Type 2 Diabetes management w ith A1c currently at 6.7% - Hypertension and hyperlipidemia manage ment, both controlled per recent blood work - Routine eye examinations with potentiedwardo garcia consideration of cataract progression - Decline colonoscopy [facility] Medical History (Updated 11/16/24 @ 08:07 by Michelle Villavicencio MD) Morbid obesity Neuropathy Essential hypertension Hypovitaminosis D Pure hypercholesterolemia Diabetes mellitus Surgical History Nephrolithiasis History of arthroscopy of right knee Family History Father Diabetes Hypertension Alcoholic liver disease Mother Diabetes Hypertension Sister Lung cancer Family/Other Diabetes Hypertension Hypercholesterolemia Social History Household Members: None Housing: Condominium Do you presently have visiting nurse or other home services: No Alcohol intake: never Patient Tobacco Use Status: Former Tobacco user Tobacco use type: Cigarette e-Cigarette/Vaping Use: Never Used Second Hand Smoke Exposure: No Advance Directives Date on File: 10/27/22 service: No Current occupational status: disabled Cognitive needs: No Hearing needs: No Vision needs: Yes (Glasses) Questionnaire PHQ-9 Over the last 2 weeks, how often have you been bothered by any of the following problems? 1. Little interest or pleasure in doing things: not at all 2. Feeling down, depressed, or hopeless: not at all 3. Trouble falling or staying asleep, or sleeping too much: not at all 4. Feeling tired or having little energy: not at all 5. Poor appetite or overeating: not at all 6. Feeling bad about yourself - or that you are a failure or have let yourself or your family down: not at all 7. Trouble concentrating on things, such as reading the newspaper or watching television: not at all 8. Moving or speaking so slowly that other people could have noticed. Or the opposite - being so fidgety or restless that you have been moving around a lot more than usual: not at all 9. Thoughts that you would be better off or of hurting yourself in some way: not at all Total score: 0 Depression Screening Interpretation: Negative Depression Screening Done: Yes 19213 - PHQ-9 Billing: Yes Source: Developed by Drs. Aly Acosta, Micheline Lynch, John Senior and colleagues, with an educational julianna from [employer]. Thrive Questionnaire Date Thrive assessed: 02/16/25 I am a: Patient What is your living situation today?: I have a steady place to live Within the past 12 months, did the food you bought not last and you didn't have the money to get more?: I choose not to answer this question Within the past 12 months, did you worry whether your food would run out before you got money to buy more?: I choose not to answer this question Do you have trouble paying for medicines?: No Do you have trouble getting transportation to medical appointments?: No Do you have trouble paying your heating and electricity bill?: No Do you have trouble taking care of your child, family member or friend?: No Do you have trouble with day-to-day activities such as bathing, preparing meals, shopping, managing finances, etc.?: No Are you currently unemployed and looking for a job?: No Are you interested in more education?: No Please select the resources that you would like help with: None Currently or been in a relationship where the following occur: I choose not to answer THRIVE Score: 0 AUDIT C Alcohol Use Questionnaire (AUDIT-C) 1. How often do you have a drink containing alcohol?: Never Total Score: 0 Score Reviewed/Action Taken: No MIKAELA-7 AMB Questionnaire MIKAELA-7 Date MIKAELA - 7 assessed: 02/10/24 Feeling nervous, anxious, or on edge: 0 = Not at all Not being able to stop or control worryin = Not at all Worrying too much about different things: 0 = Not at all Trouble relaxin = Not at all Being so restless that it is hard to sit still: 0 = Not at all Becoming easily annoyed or irritable: 0 = Not at all Feeling afraid as if something awful might happen: 0 = Not at all Total MIKAELA-7 score (0-4 normal; 5-9 mild; 10-14 moderate; 15-21 severe): 0 Source: Developed by Drs. Aly Acosta, Micheline Lynch, John Senior and colleagues, with an educational julianna from [employer]. MIKAELA-7 Assessment Billing MIKAELA-7 Assessment Tool: MIKAELA-7 Assessment 86003 Review of Systems Const All systems reviewed & are unremarkable except as noted in HPI and below Card Denies chest pain at rest, Denies chest pain with activity, Denies edema, Denies irregular heart rhythm, Denies claudication, Denies dyspnea, Denies dyspnea on exertion, Denies orthopnea, Denies paroxysmal nocturnal dyspnea and Denies slow heart rate Resp Denies cough, Denies dyspnea and Denies dyspnea on exertion Neuro Denies lack of coordination Physical exam (Primary Care) Vital Signs: Last Vital Signs Temp 97.1 F 02/16/25 08:20 Pulse 78 02/16/25 08:20 Resp 16 02/16/25 08:20 BP 128/78 02/16/25 08:20 Pulse Ox 96 02/16/25 08:20 Oxygen Delivery Method Room Air 02/16/25 08:20 BMI result Body Mass Index 42.8 BMI Assessment/Plan discussion: High BMI High, discussed plan: lifestyle, weight reduction, dietary and physical activity Tobacco/Smoking Status: Tobacco use Status Tobacco use date assessed 02/16/25 02/16/25 08:24 Patient Tobacco Use Status Former Tobacco user 02/16/25 08:21 Tobacco use type Cigarette 02/16/25 08:21 e-Cigarette/Vaping Use Never Used 02/16/25 08:21 PHQ-9: PHQ-9 Score PHQ-9: Total score 0 02/16/25 09:19 Depression Screening Interpretation: Negative Thrive Assessment: Date of Thrive Assessment Date Thrive assessed 02/16/25 02/16/25 08:24 Currently or been in a relationship where the following occur: I choose not to answer HENNJ Head: Yes normal to inspection, Yes normocephalic and Yes atraumatic Ears: external ears normal Eyes General: appearance normal, both eyes and all related structures Eyelids: Yes eyelids normal Conjunctivae: conjunctivae normal Neck Neck: Yes normal visual inspection and Yes supple Resp Effort & Inspection: normal respiratory effort Auscultation: clear to auscultation bilaterally Cardio Jugular venous distension: no JVD Rate: regular rate Rhythm: regular rhythm Heart sounds: S1 normal heart sound present and S2 normal heart sound present GI Inspection: Yes normal to inspection Palpation (GI): Soft to palpation and nontender Auscultation: normal bowel sounds Skin General skin exam: no rashes or lesions noted Neuro General: no focal motor deficits Extrem General: Yes full ROM Psych Appearance: grossly normal Results AMB Hemoglobin A1c AMB Hemoglobin A1c 6.6 % Last Edit by Laura Rodriguez CMA on 02/16/25 08:42 Immunizations pneumoc 20-jerry conj-dip cr(PF) 0.5 mL IM syringe Performing Provider: Michelle Villavicencio MD [facility] Administered by: KATE Cardoso on 02/16/25 09:19 Dose Route Admin Location Dispensed Lot Number Expiration Date NDC Director Of Sales 0.5 mL IM Right Deltoid 0.5 mL [id number] 04/10/26 [employer] VIS Given Date VIS Provided VIS Publication Date 02/16/25 Single Vaccine 23 Eligibility Eligibility Date Funding Source Not [facility] Eligible 02/16/25 Private Results Reviewed Results Reviewed: Laboratory Last Values Hgb A1c (Clinic) 6.6 % (4.0-6.0) H 02/16/25 08:40 Coding Level of Care Code Est Pt Prev Care 40-64y(71792) Diagnoses Physical exam Z00.00 Morbid obesity with BMI of 40.0-44.9, adult E66.01; Z68.41 Type 2 diabetes mellitus with other neurologic complication, without long-term current use of insulin E11.49 Diabetes mellitus type: type 2 Diabetes mellitus correction insulin use: without correction use Diabetes mellitus complication status: with neurologic complications Diabetes mellitus complication detail: with other neurological complication Additional Codes MIKAELA-7 Assessment Billing - MIKAELA-7 Assessment Tool: MIKAELA-7 Assessment 44564 ([id number]) PHQ-9 - 02570 - PHQ-9 Billing: Yes ([id number]) Time Spent (min) 32 Assessment & Plan Assessment & Plan (1) Physical exam: Code(s): Z00.00 - Encounter for general adult medical examination without abnormal findings Category: Medical (2) Morbid obesity with BMI of 40.0-44.9, adult: Code(s): E66.01 - Morbid (severe) obesity due to excess calories; Z68.41 - Body mass index [BMI] 40.0-44.9, adult Category: Medical (3) Diabetes mellitus: Comment: last hgbA1c 06/01/24 was 5.9 Code(s): E11.9 - Type 2 diabetes mellitus without complications Category: Medical Qualifiers: Diabetes mellitus type: type 2 Diabetes mellitus correction insulin use: without correction use Diabetes mellitus complication status: with neurologic complications Diabetes mellitus complication detail: with other neurological complication Qualified Code(s): E11.49 - Type 2 diabetes mellitus with other diabetic neurological complication Plan A pneumococcal booster was administered to maintain immunologic protection. For hypertension and hyperlipidemia, current effective medications were continued. Lifestyle modification to aid weight loss due to obesity was emphasized. Sleep hygiene education was provided with respect to caffeine reduction to improve sleep. Cataract progression was discussed, with patient preference for watchful waiting over surgical intervention acknowledged. Despite the positive Cologuard, the patient declined a colonoscopy, understanding potential risks.: Patient was informed and verbally consented to the use of an ambient scribe for clinic note documentation during this visit. I discussed with the patient the management of his Type 2 Diabetes Mellitus, suggesting an increase in Ozempic to 0.5 mg weekly for better glycemic control and management of gastrointestinal symptoms. The importance of managing his morbid obesity through lifestyle changes was highlighted alongside administering the pneumococcal vaccine booster. The effectiveness of his hypertension and hyperlipidemia treatments was confirmed, and I recommended continuing the current regimens. I addressed his sleep disturbances, attributing them to caffeine intake, and recommended reducing consumption. For ophthalmic health, the progression of cataracts and the patient's reservation against surgery were noted. Despite a positive Cologuard test, the patient declined a colonoscopy. I emphasized understanding the risks of potential colon pathology despite his de cision. Orders: Orders Lipid Panel 4 Months E78.5 - Hyperlipidemia, unspecified Microalbumin, Random (w Creat) 4 Months R80.9 - Proteinuria, unspecified Comprehensive [place]. Panel Fast 4 Months E66.01 - Morbid (severe) obesity due to excess calories, Z68.41 - Body mass index [BMI] 40.0-44.9, adult AMB Hemoglobin A1c Today E11.49 - Type 2 diabetes mellitus with other diabetic neurological complication Pneumococcal 20 Immunization Today Z23 - Encounter for immunization Vitamin D 25-OH Total 4 Months E55.9 - Vitamin D deficiency, unspecified Medications: New semaglutide (Ozempic) 0.5 mg (0.736 mL) subcut QWEEK 2.944 mL 0RF 4 weeks E11.49 - Type 2 diabetes mellitus with other diabetic neurological complication Discontinued semaglutide (Ozempic) for 4 weeks Discontinued Reason: Patient Completed Course 0.25 mg (0.368 mL) subcut QWEEK 4 weeks 1.472 mL 0RF E11.49 - Type 2 diabetes mellitus with other diabetic neurological complication Patient Instructions: - Follow the new weekly Ozempic dosage of 0.5 mg for diabetes management. - Schedule and receive the pneumococcal vaccine booster. - Continue current medications for hypertension and hyperlipidemia as prescribed. - Reduce caffeine intake, especially after 6 PM, to improve sleep quality. - Maintain regular eye examinations to monitor cataract progression. - Consider lifestyle modifications for weight management, including diet and exercise. - Be aware of the implications of a positive Cologuard test, and reconsider a colonoscopy for thorough evaluation. - Monitor and report any concerning symptoms or adverse medication effects.
== END 2025-02-16 09:21 | disposition home or self-care (01) ==
LOC: HO.HMCH 08:07
PROVIDERS: PCP Internal Medicine; Visit Provider Internal Medicine
DX: Z00.00 Encounter for general adult medical examination without abnormal findings (principal); E66.01 Morbid (severe) obesity due to excess calories; Z68.41 Body mass index [BMI] 40.0-44.9, adult; E11.49 Type 2 diabetes mellitus with other diabetic neurological complication; Z23 Encounter for immunization

== ENCOUNTER → 2025-02-16 08:07 | Outpatient (BNVA) | payer OTHER, SELFPAY | PROVIDERS: PCP Internal Medicine; Visit Provider Internal Medicine | DX: Z00.00 Encounter for general adult medical examination without abnormal findings (principal); E66.01 Morbid (severe) obesity due to excess calories; E11.49 Type 2 diabetes mellitus with other diabetic neurological complication; E78.5 Hyperlipidemia, unspecified; R80.9 Proteinuria, unspecified; E55.9 Vitamin D deficiency, unspecified; Z23 Encounter for immunization; Z91.013 Allergy to seafood; Z87.891 Personal history of nicotine dependence; Z68.41 Body mass index [BMI] 40.0-44.9, adult | CPT/HCPCS: 83036; 90471; 90677; 96127; 99396 ==

== ENCOUNTER 2025-03-21 09:50 | Outpatient (AMB) | payer OTHER, SELFPAY ==
--- NOTE | 2025-03-21 09:51 | A.OFFPC_ITS ---
Vital Signs 03/21/25 09:52 Height 5 ft 2 in Weight 236 lb 8 oz BMI 43.3 BP 130/80 Blood Pressure Location Lt brachial Position Sitting Pulse 90 Pulse Source Pulse Oximeter Temp 97.1 F Temp Source Temporal Artery Scan Pulse Oximetry (%) 97 Oxygen Delivery Method Room Air Intake Visit Reasons: Pain in leg Clinical Research Assistant Required: No Accompanied by: Self / Same As Patient Allergies shellfish derived [SHELLFISH DERIVED] Allergy (Mild, Verified 03/21/25 09:56) SWELLING;DIFF BREATHING shrimp [SHRIMP] Allergy (Mild, Verified 03/21/25 09:56) swelling,difficulty breathing Tobacco use date assessed: 02/16/25 Dental Screening Dental Screen Date: 02/16/25 [facility] Medical History (Updated 03/21/25 @ 11:00 by Sebas Razo MD) Morbid obesity Neuropathy Essential hypertension Hypovitaminosis D Pure hypercholesterolemia Diabetes mellitus Surgical History Nephrolithiasis History of arthroscopy of right knee Family History Father Diabetes Hypertension Alcoholic liver disease Mother Diabetes Hypertension Sister Lung cancer Family/Other Diabetes Hypertension Hypercholesterolemia Social History Household Members: None Housing: Condominium Do you presently have visiting nurse or other home services: No Alcohol intake: never Patient Tobacco Use Status: Former Tobacco user Tobacco use type: Cigarette e-Cigarette/Vaping Use: Never Used Second Hand Smoke Exposure: No Advance Directives Date on File: 10/27/22 service: No Current occupational status: disabled Cognitive needs: No Hearing needs: No Vision needs: Yes (Glasses) Questionnaire Thrive Questionnaire Date Thrive assessed: 02/16/25 MIKAELA-7 AMB Questionnaire MIKAELA-7 Date MIKAELA - 7 assessed: 02/10/24 Source: Developed by Drs. Aly Acosta, Micheline Lynch, John Senior and colleagues, with an educational julianna from [employer]. Physical exam (Primary Care) Vital Signs: Last Vital Signs Temp 97.1 F 03/21/25 09:52 Pulse 90 03/21/25 09:52 BP 130/80 03/21/25 09:52 Pulse Ox 97 03/21/25 09:52 Oxygen Delivery Method Room Air 05/12/25 09:52 BMI result Body Mass Index 43.3 Tobacco/Smoking Status: Tobacco use Status Tobacco use date assessed 02/16/25 03/21/25 09:53 Patient Tobacco Use Status Former Tobacco user 03/21/25 09:53 Tobacco use type Cigarette 03/21/25 09:53 e-Cigarette/Vaping Use Never Used 03/21/25 09:53 Thrive Assessment: Date of Thrive Assessment Date Thrive assessed 02/16/25 03/21/25 09:53 Const General: alert; No acute distress Eyes Conjunctivae: conjunctivae normal Resp Auscultation: clear to auscultation bilaterally Cardio Rate: regular rate Rhythm: regular rhythm GI Inspection: Yes normal to inspection Extrem General: Yes normal to inspection and No edema Coding Level of Care Code Est Pt Level 4 (14838) Complex EM visit Add On G2211 Diagnoses Morbid obesity with BMI of 40.0-44.9, adult E66.01; Z68.41 Type 2 diabetes mellitus with hyperglycemia E11.65 Hyperlipidemia LDL goal <70 E78.5 Essential hypertension I10 Neuropathy G62.9 Assessment & Plan Assessment & Plan (1) Morbid obesity with BMI of 40.0-44.9, adult: Code(s): E66.01 - Morbid (severe) obesity due to excess calories; Z68.41 - Body mass index [BMI] 40.0-44.9, adult Category: Medical Plan: Diet and exercise (2) Type 2 diabetes mellitus with hyperglycemia: Comment: Eye and lasik Code(s): E11.65 - Type 2 diabetes mellitus with hyperglycemia Category: Medical Plan: Decrease the amount of carbohydrate intake, pasta, bread, rice and potatoes are all sugar and that is aside from all the sweet stuff, remember that fruits are good but they are Sweet also. Hemoglobin A1c goal of less than 6.5. Patient on Tresiba 28 units once a day metformin 500 mg twice a day Ozempic 0.5 mg once a week (3) Hyperlipidemia LDL goal <70: Code(s): E78.5 - Hyperlipidemia, unspecified Category: Medical Plan: Avoid fried foods, chicken skin, eggs, butter margarine, pastries and meat. Be it pork or beef they have a lot of cholesterol LDL goal of less than 100 and triglyceride of less than 150 (4) Essential hypertension: Code(s): I10 - Essential (primary) hypertension Category: Medical Plan: Continue with blood pressure medication. Decrease salt intake and exercise patient on losartan 100 mg once a day amlodipine 5 mg once a (5) Neuropathy: Code(s): G62.9 - Polyneuropathy, unspecified Category: Medical Plan History of Present Illness The patient is a 64-year-old male presenting with a follow-up for chronic medical conditions including Type 2 Diabetes Mellitus, Essential Hypertension, Hypercholesterolemia, and osteoarthritis. His diabetes management has seen variable control, with hemoglobin A1c increasing from 5.9% to 6.6% over a period, potentially indicating a need for adjustments in his therapeutic regimen. Essential hypertension and hypercholesterolemia are being managed with a report of a low LDL level at 53 mg/dL. Proteinuria and elevated creatinine levels have been indicative of diabetic nephropathy. The patient reports frequent cortisone injections for osteoarthritis of the knee, which interfere with his physical activity, contributing to weight concerns due to limited mobility. Diabetes outcomes could benefit from nutritional modifications given his personal history of high caloric intake linked to cultural and familial dietary habits. He has declined colonoscopy screening, despite medical encouragement for preventive measures against colon cancer. Health Maintenance - Advised to keep current with diabetes monitoring including Hemoglobin A1c. - Discussion on preventive screenings including colonoscopy, despite patient's reluctance. - Emphasis on lifestyle changes: maintaining a diet rich in fresh vegetables as part of diabetes management and obesity control. - Advised on exercise and weight management strategies despite physical limitations. Social History - ; his spouse from dementia. - Reports lengthy marriage to a Filipina and typical consumption of a high- calorie diet. - Prefers dietary adjustments to minimize medication intake. - Swelling and osteoarthritis have significantly impacted mobility, contributing to aggravated obesity. Review of Systems - Constitutional: Denies fever. Reports difficulty with weight management due to knee pain. - Musculoskeletal: Reports knee swelling and frequent cortisone injections, denies improvement. Physical Exam Results - Labs: - Creatinine 1.2 mg/dL in prior results; more recent results show creatinine at 1.17 mg/dL. - GFR of 69 mL/min/1.73m?, indicative of mild kidney disease. - Hemoglobin A1c increased from 5.9% in 2023 to 6.6% in February 2025. - LDL 53 mg/dL achieved recently. - Urinalysis: Significant proteinuria indicative of renal involvement. Plan 1. 6% suggests further dietary and therapeutic adjustments might be necessary. Blood pressure and lipid levels are controlled, with noted discussions for enhancing renoprotective measures due to proteinuria. The patient receives cortisone for osteoarthritis with plans to reassess intervention efficacy. Nutrition counseling, focusing on reducing caloric intake, remains a fountain strategy the patient is comfortable pursuing. We discussed the benefits yet necessary consideration of colon cancer screening options, reflecting patient preference for non-invasive alternatives where applicable.: Patient was informed and verbally consented to the use of an ambient scribe for clinic note documentation during this visit. Discussion Notes We discussed with the patient the management of his chronic conditions. I emphasized the importance of diabetes control and its impact on renal function, with focus on diet and medication adherence. We reviewed the elevated A1c and conveyed the implications of sustained hyperglycemia. We acknowledged his preference to opt out of a colonoscopy and explored the option of non-invasive screening. We discussed, at length, lifestyle modifications, particularly nutrition, urging the patient to concentrate on a balanced intake and his role in mitigating medication use where feasible. Follow-ups were arranged to ensure continued monitoring and management with multidisciplinary care. Patient Instructions - Monitor blood sugar levels regularly and report significant changes. - Continue following diet recommendations to aid in weight management and improve glucose control. - Observe any swelling or increased joint pain and report these changes. - Be aware of the next scheduled appointment with the tooling specialist, and ensure timely attendance. - Engage in advisable levels of physical activity within comfort, focusing on aev-rjasxm-iupibis exercises. Medications: Changed From semaglutide (Ozempic) 0.5 mg (0.736 mL) subcut QWEEK 4 weeks 2.944 mL 0RF E11.49 - Type 2 diabetes mellitus with other diabetic neurological complication To semaglutide 1 mg (0.75 mL) subcut QWEEK 3 mL 2RF 4 weeks E11.49 - Type 2 diabetes mellitus with other diabetic neurological complication
[2025-03-21 09:52] VITALS: BP 130/80; PULSE 90; TEMP 36.2; O2SAT 97; BMI 43.3
--- OUTSIDE RECORDS SUMMARY | 2025-03-21 10:08 | XMS_ITS | Clinical Summary ---
Author Organization [facility] Address [address] [place] [id number] Care Team Providers Care Maxillofacial Surgeon Name Role Phone Michelle Lind MD Primary Care Provider [phone] Allergies No known active allergies Medications simvastatin [...] kg (215 lb 3.2 oz) 10/04/2024 2:44 PM EST Height - - Body Mass Index - - Plan of Treatment Upcoming Encounters Date Type Department Care Team (Late st Contact Info) Description 10/10/2025 2:00 PM EST Office Visit [facility] [address] [place] [address] Obey Ansari MD [address] [facility] [address] [place] [address] Health Maintenance Due Date Last Done Comments Pneumococcal Vaccine: 50+ Ye ars (1 of 2 - PCV) 1980 Colorectal Cancer Screening: Annual FOBT 2010 Colorectal Cancer Screening: Colonoscopy 2010 Colorectal Cancer Screening: Sigmoidoscopy 2010 Diabetes: Ophthalmology Exam 05/19/2023 Diabetes: Pedal Pulse Checked 05/19/2023 Diabetes: Sensory Foot Exam 05/19/2023 Diabetes: Visual Foot Exam 05/19/2023 Diabetes: Hemoglobin A1C 12/10/2023 09/09/2023 Influenza Vaccine (Season Ended) 2025 Hepatitis B Vaccine Aged Out No longe r eligible based on patient's age to complete this topic Insurance [facility] ([id number]) [facility] ([id number]) Care Teams Maxillofacial Surgeon Relationship Specialty Start Date End Date Michelle Lind MD [address] [place], [place] PCP - General Internal Medicine 10/04/24
--- OUTSIDE RECORDS SUMMARY | 2025-03-21 10:08 | XMS_ITS | Clinical Summary ---
Author Organization [employer] Address [address] [facility] 7[address] [place] [address] Care Team Providers Care Workers Compensation Paralegal Name Role Phone Unavailable Primary Care Provider [...]
--- OUTSIDE RECORDS SUMMARY | 2025-03-21 10:08 | XMS_ITS | Encounter Summary ---
Author Organization [employer] Address [address] [facility] 7t [place] [address] Care Team Providers Care Dukey Rider Name Role Phone Unavailable Primary Care Provider Unavailabl e Encounter Details Date Type Department Care Team (Latest Contact Info) Description 06/20/2021 Abstract [facility] CONVERSIONS Dental, Provider, DDS Social [...]
--- OUTSIDE RECORDS SUMMARY | 2025-03-21 10:08 | XMS_ITS | Clinical Summary ---
Author Organization [facility] [address] [facility] Address [address] [place] [address] Phone Care Team Providers Care Sales Marketing Name Role Phone Michelle Villavicencio MD Primary Care Provider [phone] Allergies Active Allergy Reactions Criticality Noted Date [...] 2 (two) times a day. 4 Active Social History Tobacco Use Types Packs/Day Years [...] Description 03/28/2025 8:20 AM EDT Office Visit Endocrinology - [place] [address] [place] [phone] Cindi Morley PA [address] [place] [address] Health Maintenance Due Date Last Done Comments [...] % Blood Venous blood specimen / Unknown Historical Provider LAB BLOOD ORDERABLES Lynnette l Result from Last 3 Months or Most Recently Relevant to Health Maintenance Insurance [address] [place] [address] MEDICA[place] - [place] Care Teams Sales Marketing Relationship Specialty Start Date End Date Michelle Villavicencio MD [address] [facility] , [address] [facility] D/B/A: [facility] [place], [place] PCP - General 05/29/23
--- OUTSIDE RECORDS SUMMARY | 2025-03-21 10:08 | XMS_ITS | Data Portability ---
Author Organization [facility] [facility] Address [address] [place] [address] Care Team Providers Care Lotteries Agent Name Role Phone [facility] Referring Provider Assessment Encounter Date Assessment Date Assessment LastModified [...] or plasma 023 05/15/20 23 [address], [phone] 15:02:18 Referral None recorded . Procedures None [...] CRE 1.2 Not Available Main - Ins [address], [phone] 05/15/2023 15:01:56 05/15/20 23 05/15/2023 BMP, serum or plasm a GLU >700 Not Available Main - Ins [address], [phone] 05/15/2023 15:01:56 05/15/20 23 05/15/2023 BMP, serum or plasm a K+ 5.3 Not Available Main - Ins [address], [phone] 05/15/2023 15:01:56 05/15/20 23 05/15/2023 BMP, serum or plasm a Na+ 122 Not Available Main - Ins ilan [address] [place] [address], [phone] 05/15/2023 15:01:56 Result Notes None recorded. Medical [...] SNOMED-CT Code Diagnosis ICD10 Code Diagnosis Note [id number] Casper Hogan MD Main - instED [address] [place] [phone] 05/15/2023 14:58:01 05/15/2023 23:25:06 Hyperglycemia [id number] R73.9 Health Concerns Section Related Observation LastModified by Organization Detai ls LastModified Time None Recorded Concern Status LastModified by Organization Details LastModified Time None Recorded Advance Directives Directive None Recorded Payers Insurance Date Sequence Insurance Name Policy Number Policy Bolaños Covered Member ID Bolaños Member ID Guarantor Name 01/12/2024 1 [facility] - DOS ON OR AFTER 2023 - DUAL ELIGIBLE - HALF-WAY OPTIONS AND ONE CARE (MEDICARE REPLACEMENT/ADV ANTAGE - HMO) Isaac Rod [id number] Isaac Rod Notes Date Note Type Note [...] to be evaluated. Casper Hogan MD [address] [facility],[address], [place], [address], [employer] 05/15/2023 15:03:15
== END 2025-03-21 11:23 | disposition home or self-care (01) ==
LOC: HO.HMCH 09:50
PROVIDERS: PCP Internal Medicine; Visit Provider Internal Medicine
DX: E66.01 Morbid (severe) obesity due to excess calories (principal); Z68.41 Body mass index [BMI] 40.0-44.9, adult; E11.65 Type 2 diabetes mellitus with hyperglycemia; E78.5 Hyperlipidemia, unspecified; I10 Essential (primary) hypertension; G62.9 Polyneuropathy, unspecified

== ENCOUNTER → 2025-03-21 09:50 | Outpatient (BNVA) | payer OTHER, SELFPAY | PROVIDERS: PCP Internal Medicine; Visit Provider Internal Medicine | DX: E66.01 Morbid (severe) obesity due to excess calories (principal); E11.65 Type 2 diabetes mellitus with hyperglycemia; E78.5 Hyperlipidemia, unspecified; I10 Essential (primary) hypertension; G62.9 Polyneuropathy, unspecified; M17.10 Unilateral primary osteoarthritis, unspecified knee; Z68.41 Body mass index [BMI] 40.0-44.9, adult | CPT/HCPCS: 99212 ==

== ENCOUNTER 2025-06-29 07:28 | Outpatient (AMB) | payer OTHER, SELFPAY ==
--- OUTSIDE RECORDS SUMMARY | 2025-06-29 07:31 | XMS_ITS | Clinical Summary ---
Author Organization [facility] [address] [facility] Address [address] [place] [address] Phone Care Team Providers Care Mat Machine Tender Name Role Phone Michelle Villavicencio MD Primary Care Provider [phone] Allergies Active Allergy Reactions Criticality Noted Date [...] into the skin at bedtime. 3 Active OneTouch Ultra Test test strip 1 [...] Sign Reading Time Taken Comments Blood Pressure 136/80 03/28/2025 8:14 AM EDT Pulse 84 03/28/2025 8:14 AM EDT Temperature 36.8 C (98.3 F) 03/28/2025 8:14 AM EDT Respiratory Rate 14 03/28/2025 8:14 AM EDT Oxygen Saturation 97% 03/28/2025 8:14 AM EDT Inhaled Oxygen Concentration - - Weight 108 kg (239 lb) 03/28/2025 8:14 AM EDT Height 160 cm (5' 3 ) 03/28/2025 8:14 AM EDT Body Mass Index 42.34 03/28/2025 8:14 AM EDT Plan of Treatment Upcoming Encounters Date Type Department Care Team (Late st Contact Info) Description 10/11/2025 8:20 AM EST Office Visit Endocrinology - [place] [address] [place] [address] Cindi Morley PA [address] [place] [address] Health Maintenance Due Date Last Done Comments Diabetes: Annual GFR (Glomerular Filtration Rate) 1961 Diabetes: Annual Foot Exam 1971 DTaP,Tdap,and Td Vaccines (1 - Tdap) 1980 Zoster Vaccines (1 of 2) 2011 Cholesterol Screening (Lipid Panel) 12/05/2023 Colorectal Cancer Screening: Colonoscopy 12/05/2023 HIV Screening 12/05/2023 Hepatitis C Screening 12/05/2023 Medicare Annual Wellness Visit 12/05/2023 Social Influencers of Health Screening 12/05/2023 Depression Screening 11/10/2024 Diabetes: Annual Urine Albumin-Creatinine Ratio (uACR) 11/26/2024 Diabetes: Blood Sugar Contro l Test (HGBA1C) 11/26/2024 09/09/2023 Hypertension/CHF/CAD Annual BMP Blood Test 11/26/2024 Influenza Vaccine (#1) 2025 08/27/2024 Diabetes: Annual Retina Eye Exam 05/04/2026 05/04/2025, 05/04/2025, 05/04/2025 COVID-19 Vaccine Completed 08/27/2024 RSV Immunization Adult Patients Completed 11/29/2024 Pneumococcal Vaccine: 50+ Years Completed 02/16/2025 HIB Vaccines Aged Out No longer eligi [...] to complete this topic RSV Immunization Patients Under 20 months Aged Out No longer eligible b ased on patient's age to complete this topic Varicella Vaccines Aged Out No longer eligible based on patient's age to complete this topic Procedures Procedure Name Priority Date/Time Associated Diagnosis Comments EXTERNAL DIABETIC RETINA EYE EXAM 05/04/2025 EXTERNAL DIABETIC RETINA EYE EXAM 05/04/2025 EXTERNAL DIABETIC RETINA EYE EXAM 05/04/2025 HEMOGLOBIN A1C Routine 09/09/2023 from Last 3 Months or Most Recently Relevant to Health Maintenance Results * External Diabetic Retina Eye Exam Report (05/04/2025) Only the most recent of3 resultswithin the time period is included. Anatomical Region Laterality Modality Ultrasound Provider [facility] PROCEDURES Final Result * (ABNORMAL) Hemoglobin A1c (09/09/2023) Hemoglobin A1C 7.8(A) <=6.5 % Blood Venous blood specimen / Unknown us Historical Provider LAB BLOOD ORDERABLES Lynnette l Result from Last 3 Months or Most Recently Relevant to Health Maintenance Insurance [address] [id number] [employer] MEDICARE Member Subscriber Plan / Payer (Ef fective 2023-Present) Name:ISAAC PALACIOS Relation to Subscriber:Self Name:Isaac Palacios Jr. Payer ID:[id number] Group ID:Not on file Type:Not on file Address: [facility] [address] [id number] Care Teams Mat Machine Tender Relationship Specialty Start Date End Date Michelle Villavicencio MD [address] [facility] , [address] [facility] D/B/A: [facility] JACOBO Theodore PCP - General 05/29/23
--- OUTSIDE RECORDS SUMMARY | 2025-06-29 07:31 | XMS_ITS | Encounter Summary ---
Author Organization [employer] Address [address] [facility] 7t [place] [address] Care Team Providers Care Electrician Journeyman Wireman Name Role Phone Unavailable Primary Care Provider Unavailabl e Encounter Details Date Type Department Care Team (Latest Contact Info) Description 06/20/2021 Abstract [facility] CONVERSIONS Dental, Provider, DDS Social History Tobacco [...]
--- OUTSIDE RECORDS SUMMARY | 2025-06-29 07:31 | XMS_ITS | Clinical Summary ---
Author Organization [facility] Address [address] [place] [address] Care Team Providers Care Vice President Sales Name Role Phone Michelle Lind MD Primary Care Provider [phone] Allergies No known active allergies Medications simvastatin [...] Visit [facility] [address] [place] [address] Obey Ansari MD [address] [facility] [address] [place] [address] Health Maintenance Due Date Last Done Comments Pneumococcal Vaccine: 50+ Ye ars (1 of 2 - PCV) 1980 Colorectal Cancer Screening: Annual FOBT 2010 Colorectal Cancer Screening: Colonoscopy 2010 Colorectal Cancer Screening: Sigmoidoscopy 2010 Diabetes: Ophthalmology Exam 05/19/2023 Diabetes: Pedal Pulse Checked 05/19/2023 Diabetes: Sensory Foot Exam 05/19/2023 Diabetes: Visual Foot Exam 05/19/2023 Diabetes: Hemoglobin A1C 12/10/2023 09/09/2023 Influenza Vaccine (#1) 2025 Hepatitis B Vaccine Aged Out No longe r eligible based on patient's age to complete this topic Insurance [facility] ([id number]) [facility] ([id number]) Care Teams Vice President Sales Relationship Specialty Start Date End Date Michelle Lind MD [address] [facility] [address] [place], [place] PCP - General Internal Medicine 10/04/24
[2025-06-29 07:44] VITALS: BP 138/80; PULSE 86; RESP 16; TEMP 36.1; O2SAT 95; BMI 44.3
--- NOTE | 2025-06-29 07:44 | A.OFFPC_ITS ---
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: No Accompanied by: Self / Same As Patient Allergies shellfish derived (SHELLFISH DERIVED) Allergy (Mild, Verified 06/29/25 08:03) SWELLING;DIFF BREATHING shrimp (SHRIMP) Allergy (Mild, Verified 06/29/25 08:03) swelling,difficulty breathing Tobacco use date assessed: 06/29/25 Dental Screening Dental Screen Date: 06/29/25 Did you have a dental visit in the last 12 months?: No Did you have a dental problem in the last 6 months where you did not have access to dental care?: No Was dental information given to patient?: Patient has dentist HPI HPI Comments History of Present Illness Details The patient is a 64-year-old male presenting for follow-up of his chronic conditions, including diabetes management and eye health. The patient's Type 2 Diabetes Mellitus has been managed with medications including metformin, insulin (Treziva), and Ozempic, which was recently increased to 2 mg weekly due to persistent peripheral neuropathy symptoms, particularly at night. His recent HbA1c is 7%, which is higher than previous levels, despite increased physical activity such as walking. The patient underwent a diabetic eye exam in April, which showed no diabetic retinopathy but revealed nuclear sclerosis and dermatochalasis. The patient experiences peripheral neuropathy, with symptoms of nerve damage in the feet, particularly at night, and has been using gabapentin for management. He reports that gabapentin causes drowsiness, leading to a change in medication to Lyrica. The patient has a history of osteoarthritis in the knee, which occasionally becomes swollen and tender, as noted by Dr. Salas. He has been informed that arthritis is expected to progress. He is morbidly obese with a BMI of 44.3 and was advised to do exercise and diet. The patient is also managing hypertension with amlodipine and losartan, and hyperlipidemia with a recent LDL cholesterol level of less than 70 mg/dL. He has allergies to shellfish and shrimp. Complains of diabetic neuropathy that gabapentin 300 mg is not significant enough but it makes him sleepy therefore I will not be able to increase. I will start him on pregabalin at bedtime for this matter. He feels burning like sensation in feet associated with some numbness. Also has microalbuminuria follow by Nephrology which has significant improved. COUNT INCLUDES [facility] Medical History Morbid obesity Neuropathy Essential hypertension Hypovitaminosis D Pure hypercholesterolemia Diabetes mellitus Surgical History Nephrolithiasis History of arthroscopy of right knee Family History Father Diabetes Hypertension Alcoholic liver disease Mother Diabetes Hypertension Sister Lung cancer Family/Other Diabetes Hypertension Hypercholesterolemia Social History Household Members: None Housing: Condominium Do you presently have visiting nurse or other home services: No Alcohol intake: never Patient Tobacco Use Status: Former Tobacco user Tobacco use type: Cigarette e-Cigarette/Vaping Use: Never Used Second Hand Smoke Exposure: No Advance Directives Date on File: 10/27/22 service: No Current occupational status: disabled Cognitive needs: No Hearing needs: No Vision needs: Yes (Glasses) Questionnaire PHQ-9 Over the last 2 weeks, how often have you been bothered by any of the following problems? 1. Little interest or pleasure in doing things: not at all 2. Feeling down, depressed, or hopeless: not at all 3. Trouble falling or staying asleep, or sleeping too much: not at all 4. Feeling tired or having little energy: not at all 5. Poor appetite or overeating: not at all 6. Feeling bad about yourself - or that you are a failure or have let yourself or your family down: not at all 7. Trouble concentrating on things, such as reading the newspaper or watching television: not at all 8. Moving or speaking so slowly that other people could have noticed. Or the opposite - being so fidgety or restless that you have been moving around a lot more than usual: not at all 9. Thoughts that you would be better off or of hurting yourself in some way: not at all Total score: 0 Depression Screening Interpretation: Negative Depression Screening Done: Yes 83557 - PHQ-9 Billing: Yes Source: Developed by Drs. Aly Acosta, John Toussaint and colleagues, with an educational julianna from [employer] Thrive Questionnaire Date Thrive assessed: 02/16/25 I am a: Patient What is your living situation today?: I have a steady place to live Within the past 12 months, did the food you bought not last and you didn't have the money to get more?: I choose not to answer this question Within the past 12 months, did you worry whether your food would run out before you got money to buy more?: I choose not to answer this question Do you have trouble paying for medicines?: No Do you have trouble getting transportation to medical appointments?: No Do you have trouble paying your heating and electricity bill?: No Do you have trouble taking care of your child, family member or friend?: No Do you have trouble with day-to-day activities such as bathing, preparing meals, shopping, managing finances, etc.?: No Are you currently unemployed and looking for a job?: No Are you interested in more education?: No Please select the resources that you would like help with: None Currently or been in a relationship where the following occur: I choose not to answer THRIVE Score: 0 AUDIT C Alcohol Use Questionnaire (AUDIT-C) 1. How often do you have a drink containing alcohol?: Never 3. How often do you have six or more drinks on one occasion?: Never Total Score: 0 Score Reviewed/Action Taken: No MIKAELA-7 AMB Questionnaire MIKAELA-7 Date MIKAELA - 7 assessed: 06/29/25 Feeling nervous, anxious, or on edge: 0 = Not at all Not being able to stop or control worryin = Not at all Worrying too much about different things: 0 = Not at all Trouble relaxin = Not at all Being so restless that it is hard to sit still: 0 = Not at all Becoming easily annoyed or irritable: 0 = Not at all Feeling afraid as if something awful might happen: 0 = Not at all Total MIKAELA-7 score (0-4 normal; 5-9 mild; 10-14 moderate; 15-21 severe): 0 Source: Developed by Micheline Corral Kurt Kroenke and colleagues, with an educational julianna from [employer] MIKAELA-7 Assessment Billing MIKAELA-7 Assessment Tool: MIKAELA-7 Assessment 47975 Review of Systems Const All systems reviewed & are unremarkable except as noted in HPI and below Card Denies chest pain at rest, Denies chest pain with activity, Denies edema, Denies irregular heart rhythm, Denies claudication, Denies dyspnea, Denies dyspnea on exertion, Denies orthopnea, Denies paroxysmal nocturnal dyspnea and Denies slow heart rate Resp Denies cough, Denies dyspnea and Denies dyspnea on exertion GI Denies abdominal pain, Denies change in bowel habits, Denies excessive flatus, Denies nausea and Denies vomiting Denies urinary hesitancy, Denies urinary incontinence and Denies urinary urgency Musc Denies abnormal gait, Denies atrophy, Denies deformity and Denies limited range of motion Neuro Denies abnormal gait, Denies behavioral changes and Denies lack of coordination Psych Denies behavioral changes Physical exam (Primary Care) Vital Signs: Last Vital Signs Temp 97.0 F 06/29/25 07:44 Pulse 86 06/29/25 07:44 Resp 16 06/29/25 07:44 BP 138/80 06/29/25 07:44 Pulse Ox 95 06/29/25 07:44 Oxygen Delivery Method Room Air 06/29/25 07:44 BMI result Body Mass Index 44.3 BMI Assessment/Plan discussion: High BMI High, discussed plan: lifestyle, weight reduction, dietary and physical activity Tobacco/Smoking Status: Tobacco use Status Tobacco use date assessed 06/29/25 06/29/25 07:50 Patient Tobacco Use Status Former Tobacco user 06/29/25 07:50 Tobacco use type Cigarette 06/29/25 07:50 e-Cigarette/Vaping Use Never Used 06/29/25 07:50 PHQ-9: PHQ-9 Score PHQ-9: Total score 0 06/29/25 08:08 Depression Screening Interpretation: Negative Thrive Assessment: Date of Thrive Assessment Date Thrive assessed 02/16/25 06/29/25 07:50 Currently or been in a relationship where the following occur: I choose not to answer Resp Effort & Inspection: normal respiratory effort Auscultation: clear to auscultation bilaterally Cardio Jugular venous distension: no JVD Rate: regular rate Rhythm: regular rhythm Heart sounds: S1 normal heart sound present and S2 normal heart sound present Extrem General: Yes full ROM Results AMB Hemoglobin A1c AMB Hemoglobin A1c 7.0 % Last Edit by Yara Tse CMA on 06/29/25 07:55 Results Reviewed Results Reviewed: Laboratory Last Values Hgb A1c (Clinic) 7.0 % (4.0-6.0) H 06/29/25 07:50 Coding Level of Care Code Est Pt Level 4 (28952) Complex EM visit Add On G2211 Diagnoses Type 2 diabetes mellitus with other neurologic complication, without long-term current use of insulin E11.49 Diabetes mellitus complication detail: with other neurological complication Diabetes mellitus complication status: with neurologic complications Diabetes mellitus ferry terminal supervisor insulin use: without ferry terminal supervisor use Diabetes mellitus type: type 2 Essential hypertension I10 Hyperlipidemia LDL goal <70 E78.5 Morbid obesity with BMI of 40.0-44.9, adult E66.01; Z68.41 Diabetic neuropathy E11.40 Additional Codes MIKAELA-7 Assessment Billing - MIKAELA-7 Assessment Tool: MIKAELA-7 Assessment 78330 ([id number]) PHQ-9 - 85878 - PHQ-9 Billing: Yes ([id number]) Time Spent (min) 24 Assessment & Plan Assessment & Plan (1) Diabetes mellitus: Comment: last hgbA1c 06/01/24 was 5.9 Code(s): E11.9 - Type 2 diabetes mellitus without complications Category: Medical Qualifiers: Diabetes mellitus complication detail: with other neurological complication Diabetes mellitus complication status: with neurologic complications Diabetes mellitus shelter insulin use: without shelter use Diabetes mellitus type: type 2 Qualified Code(s): E11.49 - Type 2 diabetes mellitus with other diabetic neurological complication (2) Essential hypertension: Code(s): I10 - Essential (primary) hypertension Category: Medical (3) Hyperlipidemia LDL goal <70: Code(s): E78.5 - Hyperlipidemia, unspecified Category: Medical (4) Morbid obesity with BMI of 40.0-44.9, adult: Code(s): E66.01 - Morbid (severe) obesity due to excess calories; Z68.41 - Body mass index [BMI] 40.0-44.9, adult Category: Medical (5) Diabetic neuropathy: Code(s): E11.40 - Type 2 diabetes mellitus with diabetic neuropathy, unspecified Category: Medical Plan The management plan for the patient's Type 2 Diabetes Mellitus includes increasing the Ozempic dosage to 2 mg weekly to better control blood glucose levels and address peripheral neuropathy symptoms. The patient is advised to continue regular physical activity and monitor his blood glucose levels closely. For the management of peripheral neuropathy, the patient will transition from gabapentin to Lyrica to potentially reduce drowsiness and improve symptom control. The patient should monitor for any changes in symptoms and report back during the next follow-up visit. Regarding eye health, the patient is informed about the potential for cataract development and presbyopia, and should follow up with ophthalmology as needed. The patient is also advised to maintain regular diabetic eye exams to monitor for any changes. For osteoarthritis of the knee, the patient is advised to manage symptoms with lifestyle modifications and to consult with his healthcare provider if symptoms worsen. The patient should continue current medications for hypertension and hyperlipidemia, and follow up with his primary care provider for routine monitoring. Patient was informed and verbally consented to the use of an ambient scribe for clinic note documentation during this visit. Orders: Orders AMB Hemoglobin A1c Today Z13.9 - Encounter for screening, unspecified Lipid Panel 4 Months E78.5 - Hyperlipidemia, unspecified Microalbumin, Random (w Creat) 4 Months R80.9 - Proteinuria, unspecified Comprehensive [place]. Panel Fast 4 Months E11.49 - Type 2 diabetes mellitus with other diabetic neurological complication Medications: New semaglutide (Ozempic) 2 mg (0.75 mL) subcut QWEEK 3 mL 0RF 4 weeks E11.49 - Type 2 diabetes mellitus with other diabetic neurological complication pregabalin 75 mg PO BEDTIME 30 caps 0RF 30 days E11.40 - Type 2 diabetes mellitus with diabetic neuropathy, unspecified Discontinued semaglutide Discontinued Reason: Patient Completed Course 1 mg (0.75 mL) subcut QWEEK 4 weeks 3 mL 0RF E11.49 - Type 2 diabetes mellitus with other diabetic neurological complication
== END 2025-06-29 08:21 | disposition home or self-care (01) ==
PROVIDERS: PCP Internal Medicine; Visit Provider Internal Medicine
DX: E11.49 Type 2 diabetes mellitus with other diabetic neurological complication (principal); E66.01 Morbid (severe) obesity due to excess calories; Z68.41 Body mass index [BMI] 40.0-44.9, adult; E11.40 Type 2 diabetes mellitus with diabetic neuropathy, unspecified; I10 Essential (primary) hypertension; E78.5 Hyperlipidemia, unspecified

== ENCOUNTER → 2025-06-29 07:28 | Outpatient (BNVA) | payer OTHER, SELFPAY | PROVIDERS: PCP Internal Medicine; Visit Provider Internal Medicine | DX: E11.49 Type 2 diabetes mellitus with other diabetic neurological complication (principal); E11.40 Type 2 diabetes mellitus with diabetic neuropathy, unspecified; I10 Essential (primary) hypertension; E78.5 Hyperlipidemia, unspecified; E66.01 Morbid (severe) obesity due to excess calories; Z68.41 Body mass index [BMI] 40.0-44.9, adult; Z79.4 Long term (current) use of insulin; Z79.84 Long term (current) use of oral hypoglycemic drugs | CPT/HCPCS: 83036; 96127; 99212 ==

== ENCOUNTER 2025-08-23 08:03 | Outpatient (AMB) | payer OTHER, SELFPAY ==
[2025-08-23 08:10] VITALS: BP 134/78; PULSE 79; O2SAT 98; BMI 43.7
--- NOTE | 2025-08-23 08:10 | A.OFFPC_ITS ---
Vital Signs 08/23/25 08:10 Height 5 ft 2 in Weight 239 lb BMI 43.7 BP 134/78 Blood Pressure Location Lt brachial Position Sitting Pulse 79 Pulse Source Pulse Oximeter Pulse Oximetry (%) 98 Oxygen Delivery Method Room Air Intake Visit Reasons: [facility] upper eye lid surgery on 09/05/25 Plate Preparer Required: No Accompanied by: Self / Same As Patient Allergies shellfish derived (SHELLFISH DERIVED) Allergy (Mild, Verified 08/23/25 08:35) SWELLING;DIFF BREATHING shrimp (SHRIMP) Allergy (Mild, Verified 08/23/25 08:35) swelling,difficulty breathing Medication List - Last Reconciled 08/23/25 by Michelle Villavicencio MD amlodipine 5 mg See Protocol PO DAILY 90 days blood pressure monitor As directed blood sugar diagnostic (OneTouch Ultra Test strips) Use 1 test strip twice a day blood-glucose meter ([email or web address] Ultra2 Meter) As directed gabapentin 300 mg PO DAILY 90 days insulin degludec (Tresiba FlexTouch U-200 insulin) 28 units (0.14 mL) subcut DAILY 30 days lancets (ALENTYTouch UltraSoft 2 Lancet) Use 1 lancet twice a day lancets (ALENTYTouch Delica Plus Lancet) As directed losartan 100 mg PO DAILY 90 days metformin 500 mg PO BID 90 days pen needle, diabetic (Comfort EZ [employer]) Use 1 pen needle once a day pregabalin 75 mg PO BEDTIME 30 days semaglutide (Ozempic) 2 mg (0.75 mL) subcut QWEEK 4 weeks simvastatin 40 mg PO BEDTIME Tobacco use date assessed: 06/29/25 Fall risk assessment: No Falls in past year Last assessed Fall Risk: 08/23/25 Dental Screening Dental Screen Date: 06/29/25 HPI HPI Comments History of Present Illness Details The patient is a 65-year-old male presenting with a pre-operative evaluation for bilateral upper eyelid blepharoplasty. The procedure is necessary due to vision impairment caused by drooping eyelids, and insurance has approved the surgery. The patient has a history of diabetic neuropathy, primarily affecting his feet, with symptoms of burning pain and needle-like sensations. Previously, he was on gabapentin 300 mg for over 90 days, which was ineffective, leading to a switch to pregabalin 75 mg at bedtime, significantly reducing pain intensity from 10/10 to manageable levels, allowing for better sleep. The patient has a history of hypertension, managed with amlodipine 5 mg, and hyperlipidemia, managed with simvastatin 40 mg. He is also on metformin 500 mg twice daily and Tresiba 28 units daily for Type 2 Diabetes Mellitus, with a recent HbA1c of 7% as of June 29. The patient has a history of kidney stones, with one requiring surgical removal and two passing spontaneously. He also underwent right knee arthroscopy in the past. The patient has allergies to shellfish and shrimp and has stopped smoking and does not consume alcohol. [facility] Medical History (Updated 08/23/25 @ 08:48 by Michelle Villavicencio MD) Morbid obesity Neuropathy Essential hypertension Hypovitaminosis D Pure hypercholesterolemia Diabetes mellitus Surgical History Nephrolithiasis History of arthroscopy of right knee Family History Father Diabetes Hypertension Alcoholic liver disease Mother Diabetes Hypertension Sister Lung cancer Family/Other Diabetes Hypertension Hypercholesterolemia Social History Household Members: None Housing: Condominium Do you presently have visiting nurse or other home services: No Alcohol intake: never Patient Tobacco Use Status: Former Tobacco user Tobacco use type: Cigarette e-Cigarette/Vaping Use: Never Used Second Hand Smoke Exposure: No Advance Directives Date on File: 10/27/22 service: No Current occupational status: disabled Cognitive needs: No Hearing needs: No Vision needs: Yes (Glasses) Questionnaire Thrive Questionnaire Date Thrive assessed: 02/16/25 I am a: Patient What is your living situation today?: I have a steady place to live Within the past 12 months, did the food you bought not last and you didn't have the money to get more?: I choose not to answer this question Within the past 12 months, did you worry whether your food would run out before you got money to buy more?: I choose not to answer this question Do you have trouble paying for medicines?: No Do you have trouble getting transportation to medical appointments?: No Do you have trouble paying your heating and electricity bill?: No Do you have trouble taking care of your child, family member or friend?: No Do you have trouble with day-to-day activities such as bathing, preparing meals, shopping, managing finances, etc.?: No Are you currently unemployed and looking for a job?: No Are you interested in more education?: No Please select the resources that you would like help with: None Currently or been in a relationship where the following occur: I choose not to answer THRIVE Score: 0 MIKAELA-7 AMB Questionnaire MIKAELA-7 Date MIKAELA - 7 assessed: 06/29/25 Source: Developed by Drs. Aly Acosta, Micheline Lynch, John Senior and colleagues, with an educational julianna from [employer]. Review of Systems Const All systems reviewed & are unremarkable except as noted in HPI and below Card Denies chest pain at rest, Denies chest pain with activity, Denies edema, Denies irregular heart rhythm, Denies claudication, Denies dyspnea, Denies dyspnea on exertion, Denies orthopnea, Denies paroxysmal nocturnal dyspnea and Denies slow heart rate Resp Denies cough, Denies dyspnea and Denies dyspnea on exertion Physical exam (Primary Care) Vital Signs: Last Vital Signs Pulse 79 08/23/25 08:10 BP 134/78 08/23/25 08:10 Pulse Ox 98 08/23/25 08:10 Oxygen Delivery Method Room Air 08/23/25 08:10 BMI result Body Mass Index 43.7 BMI Assessment/Plan discussion: High BMI High, discussed plan: lifestyle, weight reduction, dietary and physical activity Tobacco/Smoking Status: Tobacco use Status Tobacco use date assessed 06/29/25 08/23/25 08:14 Patient Tobacco Use Status Former Tobacco user 08/23/25 08:14 Tobacco use type Cigarette 08/23/25 08:14 e-Cigarette/Vaping Use Never Used 08/23/25 08:14 Thrive Assessment: Date of Thrive Assessment Date Thrive assessed 02/16/25 08/23/25 08:14 Currently or been in a relationship where the following occur: I choose not to answer Resp Effort & Inspection: normal respiratory effort Auscultation: clear to auscultation bilaterally Cardio Jugular venous distension: no JVD Rate: regular rate Rhythm: regular rhythm Heart sounds: S1 normal heart sound present and S2 normal heart sound present Extrem General: Yes full ROM Coding Level of Care Code Est Pt Level 4 (92826) Complex EM visit Add On G2211 Diagnoses Pre-op evaluation Z01.818 Diabetic neuropathy E11.40 Morbid obesity with BMI of 40.0-44.9, adult E66.01; Z68.41 Type 2 diabetes mellitus with other neurologic complication, without long-term current use of insulin E11.49 Diabetes mellitus type: type 2 Diabetes mellitus half-way insulin use: without terminal operations manager use Diabetes mellitus complication status: with neurologic complications Diabetes mellitus complication detail: with other neurological complication Essential hypertension I10 Hyperlipidemia LDL goal <70 E78.5 Time Spent (min) 24 Assessment & Plan Assessment & Plan (1) Pre-op evaluation: Code(s): Z01.818 - Encounter for other preprocedural examination Category: Medical (2) Diabetic neuropathy: Code(s): E11.40 - Type 2 diabetes mellitus with diabetic neuropathy, unspecified Category: Medical (3) Morbid obesity with BMI of 40.0-44.9, adult: Code(s): E66.01 - Morbid (severe) obesity due to excess calories; Z68.41 - Body mass index [BMI] 40.0-44.9, adult Category: Medical (4) Diabetes mellitus: Comment: last hgbA1c 06/01/24 was 5.9 Code(s): E11.9 - Type 2 diabetes mellitus without complications Category: Medical Qualifiers: Diabetes mellitus type: type 2 Diabetes mellitus half-way insulin use: without terminal operations manager use Diabetes mellitus complication status: with neurologic complications Diabetes mellitus complication detail: with other neurological complication Qualified Code(s): E11.49 - Type 2 diabetes mellitus with other diabetic neurological complication (5) Essential hypertension: Code(s): I10 - Essential (primary) hypertension Category: Medical (6) Hyperlipidemia LDL goal <70: Code(s): E78.5 - Hyperlipidemia, unspecified Category: Medical Plan Plan 1. Pre-Operative Evaluation For Bilateral Upper Eyelid Blepharoplasty The patient is undergoing a pre-operative evaluation for bilateral upper eyelid blepharoplasty due to vision impairment. Insurance approval has been obtained, and necessary pre-operative tests, including blood work and EKG, are planned to ensure surgical readiness. 2.Diabetic Neuropathy The patient is currently managing diabetic neuropathy with pregabalin 75 mg at bedtime, which has significantly reduced pain intensity and improved sleep quality. Continued monitoring of symptoms and medication efficacy is recommended. 3. Essential Hypertension Hypertension is managed with amlodipine 5 mg, and blood pressure is within goal. Regular monitoring and adherence to medication are advised. 4. Hyperlipidemia Hyperlipidemia is managed with simvastatin 40 mg, with a recent LDL level of 53 mg/dL, indicating good control. Continued adherence to medication and monitoring of lipid levels are recommended. 5. Type 2 Diabetes Mellitus Type 2 Diabetes Mellitus is managed with metformin 500 mg twice daily and Tresiba 28 units daily. The patient's HbA1c is 7%, and regular monitoring of blood glucose levels is advised. Orders: Orders Microalbumin, Random (w Creat) Today R80.9 - Proteinuria, unspecified Comprehensive [place]. Panel Fast Today E11.49 - Type 2 diabetes mellitus with other diabetic neurological complication ECG 12 lead EKG Today Z01.818 - Encounter for other preprocedural examination Lipid Panel Today E78.5 - Hyperlipidemia, unspecified Medications: Refilled pregabalin 75 mg PO BEDTIME 30 caps 0RF 30 days E11.40 - Type 2 diabetes mellitus with diabetic neuropathy, unspecified Discontinued gabapentin Discontinued Reason: Patient Completed Course 300 mg PO DAILY 90 days 90 caps 3RF
== END 2025-08-23 08:51 | disposition home or self-care (01) ==
LOC: HO.HMCH 08:03
PROVIDERS: PCP Internal Medicine; Visit Provider Internal Medicine
DX: Z01.818 Encounter for other preprocedural examination (principal); E11.40 Type 2 diabetes mellitus with diabetic neuropathy, unspecified; E66.01 Morbid (severe) obesity due to excess calories; Z68.41 Body mass index [BMI] 40.0-44.9, adult; E11.49 Type 2 diabetes mellitus with other diabetic neurological complication; I10 Essential (primary) hypertension; E78.5 Hyperlipidemia, unspecified

== ENCOUNTER → 2025-08-23 08:03 | Outpatient (REF) | payer OTHER, SELFPAY ==
--- OUTSIDE RECORDS SUMMARY | 2025-08-23 09:29 | XMS_ITS | Clinical Summary ---
Author Organization [facility] [address] [facility] Address [address] [place] [address] Phone Care Team Providers Care Cotton Tipper Name Role Phone Michelle Villavicencio MD Primary Care Provider [phone] Allergies Active Allergy Reactions Criticality Noted Date [...] 8:20 AM EST Office Visit Endocrinology - [place] [address] [place] [address] Cindi Morley PA [address] [place] [address] Health Maintenance Due Date Last Done Comments Colorectal Cancer Screening: Colonoscopy 1961 Diabetes: Annual GFR (Glomerular Filtration Rate) 1961 Diabetes: Annual Foot Exam 1971 DTaP,Tdap,and Td Vaccines (1 - Tdap) 1980 Zoster Vaccines (1 of 2) 2011 Cholesterol Screening (Lipid Panel) 12/05/2023 HIV Screening 12/05/2023 Hepatitis C Screening [...] Comments EXTERNAL DIABETIC RETINA EYE EXAM 05/04/2025 HEMOGLOBIN A1C Routine 09/09/2023 from Last 3 Months or Most Recently Relevant to Health Maintenance Results * External Diabetic Retina Eye Exam Report (05/04/2025) Anatomical Region Laterality Modality Ultrasound Provider [facility] IM US PROCEDURES Final Result * (ABNORMAL) Hemoglobin A1c (09/09/2023) Hemoglobin A1C 7.8(A) <=6.5 % Blood Venous blood specimen / Unknown [facility] Provider LAB BLOOD ORDERABLES Lynnette l Result from Last 3 Months or Most Recently Relevant to Health Maintenance Insurance [id number] JACOBO THEODORE [id number] [facility] MEDICARE Member Subscriber Plan / Payer (Ef fective 2023-Present) Name:ISAAC PALACIOS Relation to Subscriber:Self Name:Isaac Palacios Jr. Payer ID:[id number] Group ID:Not on file Type:Not on file Address: [facility] [address] [id number] Care Teams Cotton Tipper Relationship Specialty Start Date End Date Michelle Villavicencio MD [address] [facility] , [address] [facility] D/B/A: [facility] JACOBO Theodore PCP - General 05/29/23
--- OUTSIDE RECORDS SUMMARY | 2025-08-23 09:29 | XMS_ITS | Clinical Summary ---
Author Organization [facility] Address [address] [facility] 7t [place] [address] Care Team Providers Care Repairer Controller Tester Name Role Phone Unavailable Primary Care Provider [...] FOBT 1961 Lipid Panel 1961 Sigmoidoscopy 1961 Disability Screening 1961 Alcohol/Substance Use Screening 1973 Tobacco Screening 1973 DTaP/Tdap/Td Vaccines (1 - Tdap) 1980 Pneumococcal Vaccine: 50+ Ye ars (1 of 1 - PCV) 2011 Zoster Vaccines (1 of 2) 2011 COVID-19 Vaccine ( - 2023-2 5 season) 2025 Influenza Vaccine (#1) 2025 RSV Patients and Pa tients Aged 60 [...]
--- OUTSIDE RECORDS SUMMARY | 2025-08-23 09:29 | XMS_ITS | Encounter Summary ---
Author Organization [facility] Address [address] [facility] 7[address] [place] [address] Care Team Providers Care Electrical Line Worker Name Role Phone Unavailable Primary Care Provider Unavailabl e Encounter Details Date Type Department Care Team (Latest Contact Info) Description 06/20/2021 Abstract [facility] CONVERSION[facility] Dental, Provider, DDS Social History [...]
--- OUTSIDE RECORDS SUMMARY | 2025-08-23 09:29 | XMS_ITS | Clinical Summary ---
Author Organization [facility] Address [address] [place] [address] Care Team Providers Care Equipment Processor Name Role Phone Michelle Lind MD Primary Care Provider [phone] Allergies No known active allergies Medications simvastatin [...] Care Team (Late st Contact Info) Description 09/03/2025 Orders Only [facility] [address] [place] [id number] Obey Ansari MD [address] [address] Chronic kidney disease, stage 2 (mild); Persistent proteinuria; Hypertensive disorder 10/10/2025 2:00 PM EST Office Visit [facility] [address] [place] [address] Obey Ansari MD [address] [address] Health Maintenance Due Date Last Done [...] patient's age to complete this topic Insurance MCR ([id number]) ([id number]) Care Teams Equipment Processor Relationship Specialty Start Date End Date Michelle Lind MD [address] [place], [place] PCP - General Internal Medicine 10/04/24
[2025-08-23 10:52] LABS: Alanine Aminotransferase 34 U/L (0-40); Albumin Level 4.7 g/dL (3.5-5.0); Alkaline Phosphatase 96 U/L (39-117); Anion Gap 14 (12-20); Aspartate Amino Transferase 27 U/L (5-37); Blood Urea Nitrogen 19 mg/dL (9-16); Calcium 10.2 mg/dL (8.4-10.2); Carbon Dioxide 26 mmol/L (22-29); Chloride 107 mmol/L (96-108); Cholesterol 118 mg/dL (<200); Estimated Glomerular Filt Rate > 60; HDL Cholesterol 32 mg/dL (>40); Potassium 4.6 mmol/L (3.3-5.1); Sodium 142 mmol/L (135-145); Total Protein 7.6 g/dL (6.5-8.0); Triglycerides 193 mg/dL (<150)
[2025-08-23 11:01] LABS: Microalbum/Creatinine Ratio Ur 294.5 ug/mg cr (<30)
== END ==
LOC: HO.CARD 08:03
PROVIDERS: PCP Internal Medicine; Visit Provider Internal Medicine
DX: Z01.818 Encounter for other preprocedural examination (principal); E66.01 Morbid (severe) obesity due to excess calories; R80.9 Proteinuria, unspecified; E11.40 Type 2 diabetes mellitus with diabetic neuropathy, unspecified; I10 Essential (primary) hypertension; E11.49 Type 2 diabetes mellitus with other diabetic neurological complication; E78.5 Hyperlipidemia, unspecified; Z68.41 Body mass index [BMI] 40.0-44.9, adult; Z79.899 Other long term (current) drug therapy; Z87.891 Personal history of nicotine dependence
CPT/HCPCS: 36415; 80053; 80061; 82043; 82306; 82570; 99212

== ENCOUNTER 2025-11-02 07:44 | Outpatient (AMB) | payer OTHER, SELFPAY ==
--- OUTSIDE RECORDS SUMMARY | 2025-11-02 07:47 | XMS_ITS | Clinical Summary ---
Author Organization [facility] Address [address] [place] [address] Care Team Providers Care Promotions Intern Name Role Phone Michelle Lind MD Primary Care Provider [phone] Allergies Active Allergy Reactions Criticality Noted Date Comments Shrimp Extract Anaphylaxis High 07/26/2024 Medications simvastatin (ZOCOR) 40 MG tablet Take [...] EVERY WEEK FOR 4 WEEKS 4 Active Semaglutide (OZEMPIC, 2 MG/DOSE, SC) Inject under the skin per week Active Active Problems Problem Noted Date Diagnosed Date Chronic kidney disease, stage 2 (mild) 4 Chronic kidney disease, stage 2 (mild) 3 Acute nontraumatic kidney injury 05/19/2023 Diabetes mellitus 05/19/2023 Hypertensive disorder 05/19/2023 Stage 3a chronic kidney disease 05/19/2023 Type 2 diabetes mellitus wit h diabetic chronic kidney disease 05/19/2023 Encounters Date Type Department Care Team Description 10/10/2025 2:00 PM EST Office Visit [facility] [address] [place] [address] Obey Ansari MD Chronic kidney disease, stage 2 (mild) (Primary Dx); Type 2 diabetes mellitus with diabetic chronic kidney disease, not otherwise specified (HCC); Hypertensive disorder 09/03/2025 Orders Only [facility] [address] [place] [address] Obey Ansari MD Chronic kidney disease, stage 2 (mild); Persistent proteinuria; Hypertensive disorder from Last 3 Months Social History Tobacco [...] Sign Reading Time Taken Comments Blood Pressure 130/78 10/10/2025 2:27 PM EST Pulse 93 10/10/2025 2:27 PM EST Temperature - - Respiratory Rate - - Oxygen Saturation 98% 10/10/2025 2:27 PM EST Inhaled Oxygen Concentration - - Weight 109 kg (240 lb 3.2 oz) 10/10/2025 2:27 PM EST Height - - Body Mass Index - - Plan of Treatment Upcoming Encounters Date Type Department Care Team (Late st Contact Info) Description 10/16/2026 2:15 PM EST Office Visit [facility] [address] [place] [address] Obey Ansari MD [address] [address] Health Maintenance Due Date Last Done Comments [...] Procedure Name Priority Date/Time Associated Diagnosis Comments ALT EXT LABS Routine 08/23/2025 from Last 3 Months Results * ALT EXT LABS (08/23/2025) BUN 19 4 - 21 mg/dL Creatinine 1.11 0.60 - 1.30 mg/dL Albumin 4.7 3.5 - 5.0 g/dL Calcium 10.2 8.7 - 10.7 mg/dL Sodium 142 137 - 147 Potassium 4.6 3.4 - 5.5 Chloride 107.0 99.0 - 108.0 08/23/2025 us Historical Provider LAB BLOOD ORDERABLES Edit ed Result - Final from Last 3 Months Insurance [address] [id number] [facility] ([id number]) [facility] ([id number]) Care Teams Promotions Intern Relationship Specialty Start Date End Date Michelle Lind MD [address] [place], [place] PCP - General Internal Medicine 10/04/24
--- OUTSIDE RECORDS SUMMARY | 2025-11-02 07:47 | XMS_ITS | Clinical Summary ---
Author Organization [facility] Address [address] [facility] 7t [place] [address] Care Team Providers Care Wax Molder Name Role Phone Unavailable Primary Care Provider [...] of 2) 2011 COVID-19 Vaccine ( - 2024-2 6 season) 2025 Influenza Vaccine (#1) 2025 RSV [...]
--- OUTSIDE RECORDS SUMMARY | 2025-11-02 07:47 | XMS_ITS | Encounter Summary ---
Author Organization [facility] Address [address] [facility] 7t [place] [address] Care Team Providers Care Stereotyper Apprentice Name Role Phone Unavailable Primary Care Provider Unavailabl e Encounter Details Date Type Department Care Team (Latest Contact Info) Description 06/20/2021 Abstract [facility] CONVERSIONS Dental, Provider, DDS Social History [...]
--- OUTSIDE RECORDS SUMMARY | 2025-11-02 07:47 | XMS_ITS | Clinical Summary ---
Author Organization [facility] [address] [facility] Address [address] [place] [address] Phone Care Team Providers Care Associate Accountant Name Role Phone Michelle Villavicencio MD Primary Care Provider [phone] Allergies Active Allergy Reactions Criticality Noted Date [...] Take 1 Tablet by mouth daily. Active insulin degludec (Tresiba FlexTouch U-200) 200 unit/mL (3 mL) CONCENTRATED injection pen Inject 28 Units into the skin at bedtime. 06/17/20 23 Active OneTouch Ultra Test test strip 1 each by Other route 2 (two) times a day. 11/04/20 24 Active semaglutide (Ozempic) 2 mg/dose (8 mg/3 mL) injection pen Inject 2 mg under the skin every 7 (seven) days. Active gabapentin (Neurontin) 400 mg capsule Take once daily at bedtime 10/11/20 25 Active gabapentin (NEURONTIN) 300 mg capsule Take 1 Capsule by mouth daily. 025 Discontinued Encounters Date Type Department Care Team Description 10/11/2025 8:30 AM EST Office Visit [address] [phone] Cindi Morley PA Type 2 diabetes mellitus with diabetic microalbuminuria, with long-term current use of insulin ([facility] V24, [facility] V28) (Primary Dx); Primary hypertension; Hyperlipidemia, unspecified hyperlipidemia [...] Sign Reading Time Taken Comments Blood Pressure 127/82 10/11/2025 8:25 AM EST Pulse 81 10/11/2025 8:25 AM EST Temperature 36.8 C (98.3 F) 03/28/2025 8:14 AM EDT Respiratory Rate 15 10/11/2025 8:25 AM EST Oxygen Saturation 97% 03/28/2025 8:14 AM EDT Inhaled Oxygen Concentration - - Weight 107 kg (235 lb) 10/11/2025 8:25 AM EST Height 157.5 cm (5' 2 ) 10/11/2025 8:25 AM EST Body Mass Index 42.98 10/11/2025 8:25 AM EST Plan of Treatment Upcoming Encounters Date Type Department Care Team (Late st Contact Info) Description 02/09/2026 7:30 AM EDT Office Visit [address] [phone] Cindi Morley PA [address] [place] [address] Health Maintenance Due Date Last Done Comments [...] 09/09/2023 Hypertension/CHF/CAD Annual BMP Blood Test 11/26/2024 Diabetes: Annual Retina Eye Exam 05/04/2026 05/04/2025, 05/04/2025, 05/04/2025 RSV Immunization Adult Patients Completed 11/29/2024 Pneumococcal Vaccine: 50+ Years Completed 02/16/2025 COVID-19 Vaccine Completed 08/04/2025, 08/27/2024 Influenza Vaccine Completed 08/04/2025, 08/27/2024 HIB Vaccines Aged Out No longer [...] (05/04/2025) Anatomical Region Laterality Modality [facility]trasound [facility] PROCED[facility] Final Result * (ABNORMAL) Hemoglobin A1c (09/09/2023) Hemoglobin A1C 7.8(A) <=6.5 % Blood Venous blood specimen / Unknown Historical Provider LAB BLOOD ORDERABLES Lynnette l Result from Last 3 Months or Most Recently Relevant to Health Maintenance Insurance JACOBO THEODORE [id number] [facility] MEDICARE Member Subscriber Plan / Payer (Ef fective 2023-Present) Name:ISAAC PALACIOS Relation to Subscriber:Self Name:Isaac Palacios Jr. Payer ID:[id number] Group ID:[id number] Type:Not on file Address: [place] [address] [address] [id number] Care Teams Associate Accountant Relationship Specialty Start Date End Date Michelle Villavicencio MD [address] [place] [address] , [address] [facility] D/B/A: [facility] JACOBO Theodore PCP - General 05/29/23
--- NOTE | 2025-11-02 07:56 | A.OFFPC_ITS ---
Vital Signs 11/02/25 07:57 Height 5 ft 2 in Weight 233 lb BMI 42.6 BP 128/72 Blood Pressure Location Lt brachial Position Sitting Pulse 72 Pulse Source Pulse Oximeter Pulse Oximetry (%) 98 Oxygen Delivery Method Room Air Intake Visit Reasons: dm Marine Fisheries Technician Required: No Accompanied by: Self / Same As Patient Allergies shellfish derived (SHELLFISH DERIVED) Allergy (Mild, Verified 11/02/25 08:17) SWELLING;DIFF BREATHING shrimp (SHRIMP) Allergy (Mild, Verified 11/02/25 08:17) swelling,difficulty breathing Medication List - Last Reconciled 11/02/25 by Michelle Villavicencio MD amlodipine 5 mg See Protocol PO DAILY 90 days blood pressure monitor As directed blood sugar diagnostic (Fulcrum SP MaterialsTouch Ultra Test strips) Use 1 test strip twice a day blood-glucose meter (TalentSpringuch Ultra2 Meter) As directed gabapentin 400 mg PO TID 30 days insulin degludec (Tresiba FlexTouch U-200 insulin) 28 units (0.14 mL) subcut DAILY 30 days lancets (TalentSpringuch UltraSoft 2 Lancet) Use 1 lancet twice a day lancets (TalentSpringuch Delica Plus Lancet) As directed losartan 100 mg PO DAILY 90 days metformin 500 mg PO BID 90 days pen needle, diabetic (Comfort EZ Pen Street) Use 1 pen needle once a day semaglutide (Ozempic) 2 mg (0.75 mL) subcut QWEEK 4 weeks simvastatin 40 mg PO BEDTIME Tobacco use date assessed: 06/29/25 Fall risk assessment: No Falls in past year Last assessed Fall Risk: 11/02/25 Dental Screening Dental Screen Date: 06/29/25 HPI HPI Comments History of Present Illness Details This is a 65-year-old male with diabetes mellitus type 2, hypertension and hyperlipidemia as well as morbid obesity that comes today for follow-up on his conditions. A1c within goal being 6.1% today. Last LDL was within goal being less than 70. Blood pressure well controlled. He is morbidly obese with a BMI of 42 point and was advised to do diet and exercise to reach BMI goal less than 30. Has microalbuminuria follow by Nephrology. [facility] Medical History Morbid obesity Neuropathy Essential hypertension Hypovitaminosis D Pure hypercholesterolemia Diabetes mellitus Surgical History Nephrolithiasis History of arthroscopy of right knee Family History Father Diabetes Hypertension Alcoholic liver disease Mother Diabetes Hypertension Sister Lung cancer Family/Other Diabetes Hypertension Hypercholesterolemia Social History Household Members: None Housing: Condominium Do you presently have visiting nurse or other home services: No Alcohol intake: never Patient Tobacco Use Status: Former Tobacco user Tobacco use type: Cigarette e-Cigarette/Vaping Use: Never Used Second Hand Smoke Exposure: No Advance Directives Date on File: 10/27/22 service: No Current occupational status: disabled Cognitive needs: No Hearing needs: No Vision needs: Yes (Glasses) Questionnaire Thrive Questionnaire Date Thrive assessed: 02/16/25 I am a: Patient What is your living situation today?: I have a steady place to live Within the past 12 months, did the food you bought not last and you didn't have the money to get more?: I choose not to answer this question Within the past 12 months, did you worry whether your food would run out before you got money to buy more?: I choose not to answer this question Do you have trouble paying for medicines?: No Do you have trouble getting transportation to medical appointments?: No Do you have trouble paying your heating and electricity bill?: No Do you have trouble taking care of your child, family member or friend?: No Do you have trouble with day-to-day activities such as bathing, preparing meals, shopping, managing finances, etc.?: No Are you currently unemployed and looking for a job?: No Are you interested in more education?: No Currently or been in a relationship where the following occur: I choose not to answer THRIVE Score: 0 MIKAELA-7 AMB Questionnaire MIKAELA-7 Date MIKAELA - 7 assessed: 06/29/25 Source: Developed by Drs. Aly Acosta, Micheline Lynch, John Senior and colleagues, with an educational julianna from [employer]. Review of Systems Const All systems reviewed & are unremarkable except as noted in HPI and below Card Denies chest pain at rest, Denies chest pain with activity, Denies edema, Denies irregular heart rhythm, Denies claudication, Denies dyspnea, Denies dyspnea on exertion, Denies orthopnea, Denies paroxysmal nocturnal dyspnea and Denies slow heart rate Resp Denies cough, Denies dyspnea and Denies dyspnea on exertion Physical exam (Primary Care) Vital Signs: Last Vital Signs Pulse 72 11/02/25 07:57 BP 128/72 11/02/25 07:57 Pulse Ox 98 11/02/25 07:57 Oxygen Delivery Method Room Air 11/02/25 07:57 BMI result Body Mass Index 42.6 BMI Assessment/Plan discussion: High BMI High, discussed plan: lifestyle, weight reduction, dietary and physical activity Tobacco/Smoking Status: Tobacco use Status Tobacco use date assessed 06/29/25 11/02/25 07:56 Patient Tobacco Use Status Former Tobacco user 11/02/25 07:56 Tobacco use type Cigarette 11/02/25 07:56 e-Cigarette/Vaping Use Never Used 11/02/25 07:56 Thrive Assessment: Date of Thrive Assessment Date Thrive assessed 02/16/25 11/02/25 07:56 Currently or been in a relationship where the following occur: I choose not to answer Resp Effort & Inspection: normal respiratory effort Auscultation: clear to auscultation bilaterally Cardio Jugular venous distension: no JVD Rate: regular rate Rhythm: regular rhythm Heart sounds: S1 normal heart sound present and S2 normal heart sound present Extrem General: Yes full ROM Results AMB Hemoglobin A1c AMB Hemoglobin A1c 6.1 % Last Edit by Fay Wan CMA on 11/02/25 08 :28 Coding Level of Care Code Est Pt Level 4 (74785) Diagnoses Type 2 diabetes mellitus with other neurologic complication, without long-term current use of insulin E11.49 Diabetes mellitus type: type 2 Diabetes mellitus senior care insulin use: without senior care use Diabetes mellitus complication status: with neurologic complications Diabetes mellitus complication detail: with other neurological complication Essential hypertension I10 Hyperlipidemia LDL goal <70 E78.5 Morbid obesity with BMI of 40.0-44.9, adult E66.01; Z68.41 Microalbuminuria R80.9 Time Spent (min) 20 Assessment & Plan Assessment & Plan (1) Diabetes mellitus: Comment: last hgbA1c 06/01/24 was 5.9 Code(s): E11.9 - Type 2 diabetes mellitus without complications Category: Medical Qualifiers: Diabetes mellitus type: type 2 Diabetes mellitus senior care insulin use: without senior care use Diabetes mellitus complication status: with neurologic complications Diabetes mellitus complication detail: with other neurological complication Qualified Code(s): E11.49 - Type 2 diabetes mellitus with other diabetic neurological complication (2) Essential hypertension: Code(s): I10 - Essential (primary) hypertension Category: Medical (3) Hyperlipidemia LDL goal <70: Code(s): E78.5 - Hyperlipidemia, unspecified Category: Medical (4) Morbid obesity with BMI of 40.0-44.9, adult: Code(s): E66.01 - Morbid (severe) obesity due to excess calories; Z68.41 - Body mass index [BMI] 40.0-44.9, adult Category: Medical (5) Microalbuminuria: Code(s): R80.9 - Proteinuria, unspecified Category: Medical Plan Continue same medications. A1c goal is equal or less than 7%. Blood pressure goal is equal or less than 130/80. LDL goal is less than 70. Continue yearly diabetic eye exam. Follow-up with nephrology for microalbuminuria. Start diet and exercise to reach BMI goal less than 30. Orders: Orders AMB Hemoglobin A1c Today Z13.9 - Encounter for screening, unspecified Lipid Panel 4 Months E78.5 - Hyperlipidemia, unspecified Microalbumin, Random (w Creat) 4 Months R80.9 - Proteinuria, unspecified Vitamin D 25-OH Total 4 Months E55.9 - Vitamin D deficiency, unspecified Comprehensive [place]. Panel Fast 4 Months E11.49 - Type 2 diabetes mellitus with other diabetic neurological complication
[2025-11-02 07:57] VITALS: BP 128/72; PULSE 72; O2SAT 98; BMI 42.6
== END 2025-11-02 08:32 | disposition home or self-care (01) ==
LOC: HO.HMCH 07:45
PROVIDERS: PCP Internal Medicine; Visit Provider Internal Medicine
DX: E11.49 Type 2 diabetes mellitus with other diabetic neurological complication (principal); I10 Essential (primary) hypertension; E78.5 Hyperlipidemia, unspecified; E66.01 Morbid (severe) obesity due to excess calories; Z68.41 Body mass index [BMI] 40.0-44.9, adult; R80.9 Proteinuria, unspecified; Z13.9 Encounter for screening, unspecified

== ENCOUNTER → 2025-11-02 07:44 | Outpatient (BNVA) | payer OTHER, SELFPAY | PROVIDERS: PCP Internal Medicine; Visit Provider Internal Medicine | DX: E11.49 Type 2 diabetes mellitus with other diabetic neurological complication (principal); I10 Essential (primary) hypertension; E78.5 Hyperlipidemia, unspecified; E66.01 Morbid (severe) obesity due to excess calories; R80.9 Proteinuria, unspecified; Z68.41 Body mass index [BMI] 40.0-44.9, adult | CPT/HCPCS: 83036; 99212 ==